=== PATIENT | female | born 1945 | race Caucasian/White ===

== ENCOUNTER → 2020-07-15 10:51 | Outpatient (BNVA) | payer MEDICARE, MEDICAID, SELFPAY | PROVIDERS: PCP Internal Medicine; Visit Provider Family Medicine Adult Medicine | DX: M79.7 Fibromyalgia (principal); M00.1 Pneumococcal arthritis and polyarthritis; M47.817 Spondylosis without myelopathy or radiculopathy, lumbosacral region | CPT/HCPCS: Q3014 ==

== ENCOUNTER → 2020-08-07 11:20 | Outpatient (BNVA) | payer MEDICARE, MEDICAID, SELFPAY | PROVIDERS: PCP Internal Medicine; Visit Provider Family Medicine Adult Medicine | DX: M79.7 Fibromyalgia (principal); M47.816 Spondylosis without myelopathy or radiculopathy, lumbar region; M00.1 Pneumococcal arthritis and polyarthritis | CPT/HCPCS: 99212 ==

== ENCOUNTER 2020-12-10 14:38 | Outpatient (REF) | payer MEDICARE, SELFPAY ==
[2020-12-10 16:33] LABS: MANUAL DIFF FLAG NO
[2020-12-10 16:37] LABS: Basophils Percent Auto 0.7 % (0-2); Eosinophils Absolute Auto 0.1 X10*3/uL (0.0-0.4); Eosinophils Percent Auto 1.8 % (0-4); Hematocrit 38.6 % (37-47); Hemoglobin 12.6 g/dl (12.0-16.0); Imm Gran Abs Auto 0.02 X10*3/uL (0.00-0.03); Imm Gran Pct Auto 0.4 % (0.0-0.4); Lymphocytes Absolute Auto 1.3 X10*3/uL (1.2-4.9); Lymphocytes Percent Auto 22.2 % (20-40); Mean Corpuscular HGB Conc 32.6 g/dl (31.0-35.0); Mean Corpuscular Hemoglobin 29.9 pg (27.0-33.0); Mean Corpuscular Volume 91.5 fL (80-98); Mean Platelet Volume 11.9 fL (9.4-12.3); Monocytes Absolute Auto 0.4 X10*3/uL (0.1-1.2); Monocytes Percent Auto 7.1 % (2-11); Neutrophils Absolute Auto 3.8 X10*3/uL (2.0-8.3); Neutrophils Percent Auto 67.8 % (45-73); Platelet Count 208 X10*3/uL (160-400); Red Blood Count 4.22 X10*6/uL (4.20-5.50); Red Cell Distribution Width 14.4 % (11.0-16.0); White Blood Count 5.6 X10*3/uL (4.8-10.8)
[2020-12-10 17:05] LABS: Alanine Aminotransferase 27 U/L (0-31); Albumin Level 4.5 g/dL (3.5-5.0); Alkaline Phosphatase 77 U/L (39-117); Anion Gap 13 (12-20); Aspartate Amino Transferase 26 U/L (5-31); Bilirubin Direct 0.3 mg/dL (0.0-0.5); Bilirubin Total 0.6 mg/dL (0.0-1.0); Blood Urea Nitrogen 18 mg/dL (9-16); Calcium 9.6 mg/dL (8.4-10.2); Carbon Dioxide 28 mmol/L (22-29); Chloride 104 mmol/L (96-108); Estimated Glomerular Filt Rate > 60; Glucose Random 78 mg/dL (60-115); Sodium 141 mmol/L (135-145); Total Protein 7.1 g/dL (6.5-8.0)
[2020-12-10 17:29] LABS: TSH reflex Free T4 0.48 uIU/mL (0.32-4.0)
[2020-12-10 17:30] LABS: Vitamin B12 592 pg/mL (200-900)
[2020-12-11 13:52] LABS: LDL Cholesterol Direct 100 mg/dL (<100)
[2020-12-14 13:51] LABS: Vitamin D 25-OH, D2 <4 ng/mL; Vitamin D 25-OH, D3 50 ng/mL; Vitamin D 25-OH, Total 50 ng/mL (30-100)
== END 2020-12-10 14:39 | disposition home or self-care (01) ==
LOC: HO.HMGCLDS 14:38
PROVIDERS: PCP Internal Medicine; Visit Provider Internal Medicine
DX: Z00.01 Encounter for general adult medical examination with abnormal findings (principal); F41.1 Generalized anxiety disorder; I10 Essential (primary) hypertension
CPT/HCPCS: 36415; 80053; 80076; 82248; 82306; 82607; 83721; 84443; 85025

== ENCOUNTER → 2020-12-11 13:03 | Outpatient (BNVA) | payer MEDICARE, SELFPAY | PROVIDERS: PCP Internal Medicine; Visit Provider Internal Medicine | DX: I49.8 Other specified cardiac arrhythmias (principal); I65.23 Occlusion and stenosis of bilateral carotid arteries; I10 Essential (primary) hypertension; R07.2 Precordial pain | CPT/HCPCS: 93005; 99202 ==

== ENCOUNTER → 2021-02-10 14:00 | Outpatient (REF) | payer MEDICARE, SELFPAY ==
--- NOTE | 2021-02-10 14:05 | CA_ITS ---
Transthoracic Echocardiogram Patient (Last, First, Middle): Millie Mendez A Gender: Female Date of : 1945 Age: 75 Procedure Date: 02/10/2021 Procedure Type: Transthoracic Echocardiogram Location: OP Height: 152.4 cm Weight: 49.9 kg BSA: 1.45 m2 Heart Rate: bpm BP: 130 / 68 mmHg Site Surveyor: ZOE/NEHA Referring MD: Jalen Steele MD Commercial Analyst: Thaddeus Lindsay MD Symptoms: I49.8 - Other specified cardiac arrhythmias Study Quality: Technically Difficult ECG Rhythm: Sinus Conclusions: - 1. Normal LV systolic function with impaired relaxation filling pattern 2. Mildly dilated left atrium 3. Normal cardiac valvular Doppler 4. Normal RV systolic pressure 5. No pericardial effusion Findings Left Ventricle Normal left ventricular size, thickness, and systolic function. The visually estimated ejection fraction is between 60-65%. Spectral Doppler is indicative of an impaired relaxation filling pattern. E/E prime ratio is between 8 and 15 consistent with indeterminate filling pressures. Right Ventricle Normal right ventricular cavity size and systolic function. Atria The left atrium is mildly dilated. There is no evidence of interatrial shunt. The right atrium is normal in size. Aortic Valve There is moderate calcification of the aortic valve. There is no aortic valve stenosis. There is no aortic valve regurgitation. Mitral Valve There is mild anterior and moderate posterior mitral leaflet thickening. There is mild mitral annular calcification. There is trace mitral valve regurgitation. There is no mitral valve stenosis. Pulmonic Valve The pulmonic valve was not well visualized. Tricuspid Valve Likely normal tricuspid valve structure and function. There is trace tricuspid valve regurgitation. The right ventricular systolic pressure is normal. The right ventricular systolic pressure is 20 mmHg. There is no evidence of pulmonary hypertension. Great Vessels All visible segments of the aorta are normal in size. The pulmonary artery was not well visualized. Venous The inferior vena cava is normal in size and collapses greater than 50% with inspiration. Pericardium/Pleural There is no evidence of pericardial effusion. Prior Study Comparison No significant change compared to prior study dated: 07/13/2016. Measurements M-Mode Liner Measurements Normals - Women/Men AOV Cusps: 1.30 1.5-2.6 cm/m2 2D Linear Measurements IVSd: 0.63 0.6-0.9/0.6-1.0 cm LVIDd: 3.91 3.9-5.3/4.2-5.9 cm LVIDd Index: 2.70 2.4-3.2/2.2-3.1 cm/m2 LVIDs: 2.66 2.0-3.6 cm LVPWd: 0.73 0.7-1.1 cm LA Diam: 3.80 2.7-3.8/3.0-4.0 cm LAIDs Index: 2.62 1.5-2.3 cm/m2 LV Mass: 90.31 67-162/88-224 g LV Mass Index: 62.28 43-95/49-115 g/m2 LVOT Diam: 1.90 3.0+(-)1.3 cm 2D Systolic Function EF 4C: 58.50 >55% EF 2C: 63.80 >55% EF BiP: 60.30 >55% Mitral Valve MV Pk E: 1.11 MV PK A: 1.08 MV Decel Time: 254.00 E/A: 1.00 E'Lateral: 9.14 E'Medial: 6.64 E/E' Med: 16.70 E/E' Lat: 12.10 PHT: 74.00 MVA PHT: 2.97 Decel Woodward: 4.38 Aortic Valve AoV Pk Deacon: 1.36 AoV Mn Deacon: 1.01 AoV VTI: 0.31 AoV Pk Grad: 7.00 Aov Mn Grad: 4.00 KEATON Cont.VTI: 2.50 LVOT LVOT Pk Deacon: 1.07 LVOT Mn Deacon: 0.81 LVOT VTI: 0.28 LVOT Pk Grad: 5.00 LVOT Mn Grad: 3.00 LVOT Diam: 1.90 LVOT Area: 2.84 Diastolic Function MV Pk E: 1.11 MV Pk A: 1.08 E/A: 1.00 E'Medial: 6.64 E/E' Med: 16.70 E' Laterial: 9.14 E/E' Lat: 12.10 Tricuspid Valve TR Pk Deacon: 2.08 TR Pk Grad: 17.00 RA Press: 3.00 RVSP: 20.00 Great Vessels Aorta Ao Arch: 1.90 Pulmonary Valve PV Pk Deacon: 0.80 Peak PV Grad: 3.00 Updated in Other Vendor System with Status of Final Thaddeus Angélica MD electronically signed on 02/10/2021 4:13:38 PM with status of Final
--- NOTE | 2021-02-10 14:30 | ECG_ITS ---
Hook-up date: 2021-02-10 14:11:00 Duration: 46:18:00 Test Indications: OTHER SPEC. CARDIAC ARRHYTHMIAS Medications: [id number] QRS complexes 4 Ventricular ectopics which represent <1 % of total QRS comp. 370 Supraventricular ectopics which represent <1 % of total QRS comp. * Paced QRS complexs which represent % of total QRS comp. VENTRICULAR ECTOPY 1 Isolated 0 Bigeminal Cycles 0 Couplets 1 Runs 3 Beats in Runs 3 Beats LONGEST at 174 BPM at 13:24:19 2021-02-11 3 Beats FASTEST at 174 BPM at 13:24:19 2021-02-11 SUPRAVENTRICULAR ECTOPY 311 Isolated 12 Couplets 8 Runs 35 Beats in Runs 8 Beats LONGEST at 134 BPM at 02:47:24 2021-02-12 3 Beats FASTEST at 159 BPM at 11:53:00 2021-02-11 HEART RATES 49 MIN at 21:00:43 2021-02-10 67 AVG 95 MAX at 14:59:24 2021-02-11 LONGEST RR 1.6560 secs at 19:13:46 2021-02-11 S-T LEVELS Channel 1 - 128 mm at 14:11:00 2021-02-10 - 128 mm at 14:11:00 2021-02-10 Channel 2 - 128 mm at 14:11:00 2021-02-10 - 128 mm at 14:11:00 2021-02-10 Channel 3 - 128 mm at 03:33:01 -- - 128 mm at 03:33:01 Basic rhythm Normal sinus rhythm No long pause or profound bradycardia One 3 beat sebas of NSVT at 174 bpm Occasional Premature atrial complexes No diary submitted Referred By: Jalen Steele Overread By: SWAPNIL MARIEE MD
== END ==
LOC: HO.CARD 14:00
PROVIDERS: PCP Internal Medicine; Visit Provider Internal Medicine
DX: I49.8 Other specified cardiac arrhythmias (principal)
CPT/HCPCS: 93225; 93226; 93306

== ENCOUNTER 2021-02-13 12:55 | Outpatient (REF) | payer MEDICARE, SELFPAY ==
--- NOTE | ~2021-02-13 | US_ITS ---
EXAMINATION: US DIAGNOSTIC ULTRASOUND BREAST, LEFT CLINICAL INFORMATION: Palpable abnormality 4 o'clock position left breast. COMPARISON: Mammography of same day and dating back to 05/21/2011. TECHNIQUE: Ultrasound of the breast is performed with real-time lugo scale imaging and color Doppler. FINDINGS: In the region of palpable abnormality there is a heavily calcified lesion with some shadowing and no internal vascularity corresponding to a stable dystrophic postsurgical calcification. No new suspicious mass or edematous change within the soft tissue planes identified. Results are discussed with the patient at time of visit. US/US breast LT limited IMPRESSION: Palpable abnormality corresponds to dystrophic calcification. ASSESSMENT: BI-RADS 2: Benign. RECOMMENDATION: Routine annual mammography screening due in 12 months. This patient's information was entered into a reminder system with a target due date for their next mammogram.
--- NOTE | ~2021-02-13 | MM_ITS ---
EXAMINATION: MM DIAGNOSTIC DIGITAL BREAST TOMOSYNTHESIS, BILATERAL TARGETED LEFT BREAST ULTRASOUND CLINICAL INFORMATION: Left breast lump for 3 weeks. Status post breast reduction surgery. The lifetime risk of breast cancer based on the Tyrer-Cuzick Model is 4.0%. COMPARISON: Mammography: 01/29/2015 and 05/21/2011. TECHNIQUE: Digital breast tomosynthesis is performed in both the craniocaudal and mediolateral oblique views along with computer-aided detection (CAD). Synthesized 2D images are generated from the tomosynthesis. Targeted left breast ultrasound. FINDINGS: The breasts are extremely dense, which lowers the sensitivity of mammography (ACR BI-RADS breast composition Category d). There are no new significant masses, abnormal calcifications, or other abnormalities. Postsurgical change with dystrophic calcifications are evident. There are also stable nodular densities seen bilaterally. No new abnormal dominant mass or new more suspicious grouping of calcifications identified. Targeted left breast ultrasound to region of palpable abnormality corresponds to a dystrophic calcification. Results are discussed with the patient at time of visit. MM/MM tomosynthesis diagnostic BI IMPRESSION: There are no significant changes from prior study. ASSESSMENT: BI-RADS 2: Benign. RECOMMENDATION: Routine annual mammography screening due in 12 months. This patient's information was entered into a reminder system with a target due date for their next mammogram.
== END 2021-02-13 12:56 | disposition home or self-care (01) ==
LOC: HO.MAMMO 12:55
PROVIDERS: PCP Internal Medicine; Visit Provider Internal Medicine
DX: N63.23 Unspecified lump in the left breast, lower outer quadrant (principal)
CPT/HCPCS: 76642; 77062; 77066

== ENCOUNTER 2021-02-18 12:43 | Outpatient (REF) | payer MEDICARE, SELFPAY ==
[2021-02-18 15:37] LABS: Alanine Aminotransferase 12 U/L (0-31); Albumin Level 4.3 g/dL (3.5-5.0); Alkaline Phosphatase 67 U/L (39-117); Aspartate Amino Transferase 21 U/L (5-31); Bilirubin Direct 0.2 mg/dL (0.0-0.5); Bilirubin Total 0.5 mg/dL (0.0-1.0); Total Protein 6.7 g/dL (6.5-8.0)
== END 2021-02-18 12:44 | disposition home or self-care (01) ==
LOC: HO.LAB 12:43
PROVIDERS: PCP Internal Medicine; Referring Provider Internal Medicine; Visit Provider Nurse Practitioner Family
DX: Z01.818 Encounter for other preprocedural examination (principal)
CPT/HCPCS: 36415; 80076; 99202

== ENCOUNTER → 2021-03-17 13:32 | Outpatient (BNVA) | payer MEDICARE, SELFPAY | PROVIDERS: PCP Internal Medicine; Referring Provider Internal Medicine; Visit Provider Internal Medicine | DX: I49.8 Other specified cardiac arrhythmias (principal); R07.2 Precordial pain; I65.23 Occlusion and stenosis of bilateral carotid arteries; I10 Essential (primary) hypertension; Z79.899 Other long term (current) drug therapy | CPT/HCPCS: 99212 ==

== ENCOUNTER 2021-11-27 16:37 | Emergency (ER) | payer MEDICARE, SELFPAY ==
--- NOTE | ~2021-11-27 | XR_ITS ---
EXAMINATION: XR CHEST CLINICAL INFORMATION: New atrial fibrillation. Rule out pulmonary edema. COMPARISON: CT of the chest 10/28/2017 TECHNIQUE: Frontal view of the chest was obtained. FINDINGS: Normal cardiomediastinal silhouette. Adequate expansion of the lungs. No focal consolidation. No pleural effusion or pneumothorax. No acute osseous abnormality. Multilevel degenerative changes of the thoracic spine and bilateral shoulders. XR/XR chest 1V IMPRESSION: No acute disease. No evidence for pulmonary edema.
[2021-11-27 16:44] VITALS: BP 151/75; PULSE 92; O2SAT 98; BMI 23.8
[2021-11-27 16:45] VITALS: BP 146/83; PULSE 100; RESP 19; TEMP 37.2; O2SAT 98
--- NOTE | 2021-11-27 16:50 | ECG_ITS ---
Test Reason : HEART PALPATATIONS Blood Pressure : / mmHG Vent. Rate : 098 BPM Atrial Rate : 000 BPM P-R Int : 000 ms QRS Dur : 070 ms QT Int : 338 ms P-R-T Axes : 000 018 006 degrees QTc Int : 431 ms Atrial fibrillation Nonspecific T wave abnormality Abnormal ECG No previous ECGs available Referred By: Chetna Buchanan Electronically Signed By:Deyvi Salazar
--- NOTE | 2021-11-27 16:53 | ED.ARRPALP ---
HPI - Arrhythmia/Palpitations General Chief Complaint: Chest Pain Stated Complaint: afib Time Seen by Provider: 11/27/21 16:42 Source: patient and EMS Mode of arrival: EMS Limitations: no limitations History of Present Illness HPI narrative: Patient comes to the emergency room via ambulance from her primary care physician's office. Patient states that she has been complaining of dizziness. Patient has history of chronic vertigo. Patient has also been complaining of palpitations. Patient states that the palpitations has been intermittently present for couple of years. However, over the last 2 weeks she has been having palpitations along with dizziness and chest pressure but no chest pain. Today while patient was in the office visit, he was noted that patient's heart rate was in the 130s, EKG was done, showed new onset atrial fibrillation. Patient states that she is not on any blood thinners, takes baby aspirin. Patient states that she takes amlodipine for blood pressure. Patient states that she has a previous prescription of metoprolol. Patient was taking 50 mg for a few weeks, she did not like how it made her feel, then she discontinued taking it altogether. For the last 3 days except today, patient has been taking 25 mg to help with the palpitations. EMS arrived, patient's heart rate was in the 170s. Patient was given 12.5 mg of IV Cardizem. On arrival, heart rate 95, patient states she feels better, denies dizziness, no chest pain or shortness of breath. Related Data Home Medications Medication Instructions Recorded Confirmed venlafaxine 75 mg capsule,extended 75 mg PO DAILY 12/11/20 11/27/21 release 24 hr biotin 2,500 mcg capsule 2,000 mcg PO DAILY cap 02/18/21 11/27/21 Previous Rx's Medication Instructions Recorded loratadine 10 mg tablet (Allergy 10 mg PO DAILY PRN 90 Days #90 tab 01/13/21 Relief (loratadine)) hydrochlorothiazide 25 mg tablet 25 mg PO QAM #90 tab 01/19/21 alprazolam 0.25 mg tablet 0.5 mg PO DAILY PRN 1 Days #2 tab 04/27/21 cholecalciferol (vitamin D3) 50 50 mcg PO DAILY #90 cap 05/08/21 mcg (2,000 unit) capsule aspirin 81 mg tablet,delayed 81 mg PO DAILY #90 tab 07/27/21 release cyanocobalamin (vitamin B-12) 1,000 mcg PO Q OTHER DAY #45 tab 07/27/21 1,000 mcg tablet multivitamin-ferrous 1 tab PO DAILY 90 Days #90 tab 07/27/21 fumarate-folic acid 18 mg-400 mcg tablet (Spectravite Advanced Formula) dicyclomine 20 mg tablet 20 mg PO BID PRN 90 Days #180 tab 09/16/21 albuterol sulfate 90 mcg/actuation 1 inh INHALATION QID PRN 30 Days 10/26/21 aerosol inhaler (ProAir HFA) #18 g amlodipine 5 mg tablet 5 mg PO DAILY #90 tab 10/26/21 apixaban 5 mg tablet (Eliquis) 5 mg PO BID #60 tab 11/27/21 diltiazem HCl 120 mg 120 mg PO DAILY #30 cap 11/27/21 capsule,extended release 24 hr (Cardizem CD) Allergies Allergy/AdvReac Type Severity Reaction Status Date / Time levofloxacin [Levaquin] Allergy Unknown unknown Verified 11/27/21 15:16 morphine Allergy Unknown Itching/Hives, Verified 03/17/21 13:47 swelling,rash Vicodin Allergy Unknown Hives/SOB, Verified 11/27/21 15:16 swelling, rash buprenorphine [From Butrans] AdvReac Severe severe Verified 11/27/21 15:16 itching Seasonal / Environmental Allergy Unknown Unknown Uncoded 11/27/21 15:16 Review of Systems Review of Systems: Constitutional : No Weight loss, No Fever, No Chills, No Night Sweats, No Fatigue, No Malaise ENT/Mouth : No Hearing loss, No Ear Pain, No Nasal Congestion, No Sinus Pain, No Hoarseness, No sore throat, No Rhinorrhea, No Swallowing Difficulty Eyes: No Eye Pain, No Swelling, No Redness, No Foreign Body, No Discharge, No Vision Changes Cardiovascular : Complaining intermittent chest pressure, known at this time, complaining of intermittent palpitations, lightheadedness Respiratory : No Cough, No Sputum, No Wheezing, No Smoke Exposure, No Dyspnea Gastrointestinal : No Nausea, No Vomiting, No Diarrhea, No Constipation, No abdominal Pain, No Hematochezia, No Melena Genitourinary : no irregular bleeding, No Dysuria, No Urinary Frequency, No Hematuria, No Urinary Incontinence, No Urgency, No Flank Pain, No Urinary Flow Changes, No Hesitancy Musculoskeletal : No joint pain, No Myalgias, No Joint Swelling Skin : No Skin Lesions, No rash Neuro : No Weakness, No Numbness, No Paresthesias, No Loss of Consciousness, intermittent dizziness/lightheadedness, No Headache Psych : No Anxiety/Panic, No Depression, No SI/HI/AH/VH, No Social Issues, Heme/Lymph: No Bruising, No Bleeding,No Lymphadenopathy Endocrine : No Polyuria, No Polydipsia, No Temperature Intolerance [facility] Past Medical History Medical History (Updated 11/27/21 @ 19:10 by Chetna Buchanan MD) Atrial fibrillation Chronic pain Fibromyalgia Lumbar and sacral arthritis Lumbar spondylosis Osteoarthritis Pain management Pneumococcal arthritis, right hip Pneumococcal arthritis, right hip PTSD (post-traumatic stress disorder) Surgical History H/O colonoscopy History of bilateral breast reduction surgery History of gastric bypass History of hysterectomy History of left knee replacement History of right knee surgery History of surgery Status post breast reduction Family History Family History Father Colon cancer Mother Lung cancer Son No problems noted. Son No problems noted. Son No problems noted. Daughter No problems noted. Social History Social History Housing: Apartment Alcohol intake: never Patient Tobacco Use Status: Current everyday Tobacco user Tobacco use type: Cigarette Cigarettes Per Day: 4 Smoked in Last 30 Days: Yes Use of substances other than those prescribed or required for medical reasons: No Advance Directives: No Advance Directives Information Provided: No Current occupational status: retired Cognitive needs: No Hearing needs: No Vision needs: No Physical Exam Vital Signs: Vital Signs: Last Vital Signs Temp 99 F 11/27/21 16:45 Pulse 99 11/27/21 18:46 Resp 16 11/27/21 18:46 BP 131/81 11/27/21 18:46 Pulse Ox 98 11/27/21 18:46 BMI result Body Mass Index 23.8 Const: Other: Appearance: Alert. Oriented X3. No acute distress. Eyes: Pupils equal, round and reactive to light. ENT: Pharynx normal. Neck: Normal inspection. Neck supple. No lymph nodes noted. No crepitus CVS: Irregularly irregular rhythm, rate controlled, less than 100, Pulses normal. Normal S1 and S2 Respiratory: No respiratory distress. Breath sounds normal. No Wheezing. No rales Abdomen: Soft and nontender. No rigidity. No distention. Skin: Skin warm and dry. Normal skin color. Normal skin turgor. Extremities: Trace pitting edema bilaterally, No Lacerations. No Rash Neuro: Oriented X 3. No motor deficit. No sensory deficit. Moving all extremities. No slurred speech. CN 2 through 12 grossly intact Psych: calm, cooperative, normal affect Course Course Course Narrative: CHADS2 Vasc score 5. I discussed with the patient that blood thinners are indicated to prevent stroke. Patient agrees to start taking blood thinners. I discussed the advantages and disadvantages of taking blood thinners. Patient's heart rate ranges between 100 and 110. Patient feeling much better, denies chest pain or shortness of breath. I discussed the patient with Dr. Salazar, patient will be started on Eliquis twice a day. Also, patient states that she does not do well with metoprolol, patient will be started on a low dose of Cardizem. Patient was given the 1st dose of Eliquis here in the emergency room and a brochure for 30 day free trial of Eliquis MDM - Arrhythmia/Palpitations Lab Data Result diagrams: 11/27/21 17:10 11/27/21 17:10 Labs: Lab Results 11/27/21 11/27/21 11/27/21 Range/Units 17:10 17:10 17:10 WBC 5.3 (4.8-10.8) X10*3/uL RBC 4.72 (4.20-5.50) X10*6/uL Hgb 13.8 (12.0-16.0) g/dl Hct 42.0 (37.0-47.0) % MCV 89.0 (80.0-98.0) fL MCH 29.2 (27.0-33.0) pg MCHC 32.9 (31.0-35.0) g/dl RDW 14.1 (11.0-16.0) % Plt Count 241 (160-400) X10*3/uL MPV 11.8 (9.4-12.3) fL Immature Gran % (Auto) 0.6 H (0.0-0.4) % Neut % (Auto) 58.2 (45-73) % Lymph % (Auto) 26.2 (20-40) % Blaine % (Auto) 9.4 (2-11) % Eos % (Auto) 4.7 H (0-4) % Baso % (Auto) 0.9 (0-2) % Lymph # (Auto) 1.4 (1.2-4.9) X10*3/uL Blaine # (Auto) 0.5 (0.1-1.2) X10*3/uL Eos # (Auto) 0.3 (0.0-0.4) X10*3/uL Baso # (Auto) 0.1 (0.0-0.2) X10*3/uL Abs Immat Gran (auto) 0.03 (0.00-0.03) X10*3/uL Absolute Neuts (auto) 3.1 (2.0-8.3) x10*3/uL Absolute Nucleated RBC 0.000 (0.0-0.012) X10*3/uL Nucleated RBC % (auto) 0.0 (0.0-0.2) /100WBC PT 13.3 H (9.9-13.0) SEC INR 1.2 H (0.9-1.1) Sodium 142 (135-145) mmol/L Potassium 4.7 (3.3-5.1) mmol/L Chloride 105 (96-108) mmol/L Carbon Dioxide 25 (22-29) mmol/L Anion Gap 17 (12-20) BUN 27 H (9-16) mg/dL Creatinine 0.80 (0.5-1.4) mg/dL Estim Creat Clear Calc 47.3 Estimated GFR > 60 Random Glucose 101 (60-115) mg/dL Calcium 9.6 (8.4-10.2) mg/dL Magnesium 1.9 (1.6-2.6) mg/dL Total Bilirubin 0.4 (0.0-1.0) mg/dL Direct Bilirubin 0.2 (0.0-0.5) mg/dL AST 22 (5-31) U/L ALT 14 (0-31) U/L Alkaline Phosphatase 77 (39-117) U/L Troponin I High Sens (<3.5-17.0) ng/L B-Natriuretic Peptide (<100) pg/mL Total Protein 6.7 (6.5-8.0) g/dL Albumin 4.2 (3.5-5.0) g/dL TSH (0.32-4.0) uIU/mL 11/27/21 11/27/21 Range/Units 17:10 17:10 WBC (4.8-10.8) X10*3/uL RBC (4.20-5.50) X10*6/uL Hgb (12.0-16.0) g/dl Hct (37.0-47.0) % MCV (80.0-98.0) fL MCH (27.0-33.0) pg MCHC (31.0-35.0) g/dl RDW (11.0-16.0) % Plt Count (160-400) X10*3/uL MPV (9.4-12.3) fL Immature Gran % (Auto) (0.0-0.4) % Neut % (Auto) (45-73) % Lymph % (Auto) (20-40) % Blaine % (Auto) (2-11) % Eos % (Auto) (0-4) % Baso % (Auto) (0-2) % Lymph # (Auto) (1.2-4.9) X10*3/uL Blaine # (Auto) (0.1-1.2) X10*3/uL Eos # (Auto) (0.0-0.4) X10*3/uL Baso # (Auto) (0.0-0.2) X10*3/uL Abs Immat Gran (auto) (0.00-0.03) X10*3/uL Absolute Neuts (auto) (2.0-8.3) x10*3/uL Absolute Nucleated RBC (0.0-0.012) X10*3/uL Nucleated RBC % (auto) (0.0-0.2) /100WBC PT (9.9-13.0) SEC INR (0.9-1.1) Sodium (135-145) mmol/L Potassium (3.3-5.1) mmol/L Chloride (96-108) mmol/L Carbon Dioxide (22-29) mmol/L Anion Gap (12-20) BUN (9-16) mg/dL Creatinine (0.5-1.4) mg/dL Estim Creat Clear Calc Estimated GFR Random Glucose (60-115) mg/dL Calcium (8.4-10.2) mg/dL Magnesium (1.6-2.6) mg/dL Total Bilirubin (0.0-1.0) mg/dL Direct Bilirubin (0.0-0.5) mg/dL AST (5-31) U/L ALT (0-31) U/L Alkaline Phosphatase (39-117) U/L Troponin I High Sens 7.8 (<3.5-17.0) ng/L B-Natriuretic Peptide 680 H (<100) pg/mL Total Protein (6.5-8.0) g/dL Albumin (3.5-5.0) g/dL TSH 1.00 (0.32-4.0) uIU/mL Imaging Data Chest x-ray: Radiologist's impression: Normal cardiomediastinal silhouette. Adequate expansion of the lungs. No focal consolidation. No pleural effusion or pneumothorax. No acute osseous abnormality. Multilevel degenerative changes of the thoracic spine and bilateral shoulders. XR/XR chest 1V IMPRESSION: No acute disease. No evidence for pulmonary edema ECG Data Attestation: I personally reviewed and interpreted this ECG as follows: (Atrial fibrillation, heart rate 98, no ST segment depression or elevation, nonspecific T-wave inversion in lead 3, QTC 431) Discharge Plan Discharge Clinical Impression: Atrial fibrillation, new onset Patient Disposition: Home, Self-Care Instructions: A-fib (Atrial Fibrillation) (ED) Additional Instructions: You are being started on blood thinners. If you have any head injuries, you need to return immediately to the emergency room for evaluation. Please follow-up with your primary care physician tomorrow. If you have any worsening or new symptoms, please return to the emergency room or call 911 Prescriptions: New Eliquis 5 mg tablet 5 mg PO BID Qty: 60 0RF diltiazem HCl [Cardizem CD] 120 mg capsule,extended release 24hr 120 mg PO DAILY Qty: 30 0RF No Action loratadine [Allergy Relief (loratadine)] 10 mg tablet 10 mg PO DAILY PRN (Reason: allergy symptoms) 90 Days Qty: 90 3RF hydrochlorothiazide 25 mg tablet 25 mg PO QAM Qty: 90 0RF alprazolam 0.25 mg tablet 0.5 mg PO DAILY PRN (Reason: anxiety) 1 Days Qty: 2 0RF cholecalciferol (vitamin D3) 50 mcg (2,000 unit) capsule 50 mcg PO DAILY Qty: 90 3RF aspirin 81 mg tablet,delayed release (DR/EC) 81 mg PO DAILY Qty: 90 3RF cyanocobalamin (vitamin B-12) 1,000 mcg tablet 1,000 mcg PO Q OTHER DAY Qty: 45 1RF Spectravite Advanced Formula 18-400 mg-mcg tablet 1 tab PO DAILY 90 Days Qty: 90 3RF dicyclomine 20 mg tablet 20 mg PO BID PRN (Reason: IBS) 90 Days Qty: 180 3RF amlodipine 5 mg tablet 5 mg PO DAILY Qty: 90 0RF albuterol sulfate [ProAir HFA] 90 mcg/actuation HFA aerosol inhaler 1 inh inhalation QID PRN (Reason: shortness of breath or wheezing) 30 Days Qty: 18 0RF venlafaxine 75 mg capsule,extended release 24hr 75 mg PO DAILY 0RF biotin 2,500 mcg capsule 2,000 mcg PO DAILY 0RF
[2021-11-27 17:20] LABS: MANUAL DIFF FLAG NO
[2021-11-27 17:29] LABS: Basophils Absolute Auto 0.1 X10*3/uL (0.0-0.2); Basophils Percent Auto 0.9 % (0-2); Eosinophils Absolute Auto 0.3 X10*3/uL (0.0-0.4); Eosinophils Percent Auto 4.7 % (0-4); Hemoglobin 13.8 g/dl (12.0-16.0); Imm Gran Abs Auto 0.03 X10*3/uL (0.00-0.03); Imm Gran Pct Auto 0.6 % (0.0-0.4); Lymphocytes Absolute Auto 1.4 X10*3/uL (1.2-4.9); Lymphocytes Percent Auto 26.2 % (20-40); Mean Corpuscular HGB Conc 32.9 g/dl (31.0-35.0); Mean Corpuscular Hemoglobin 29.2 pg (27.0-33.0); Mean Platelet Volume 11.8 fL (9.4-12.3); Monocytes Absolute Auto 0.5 X10*3/uL (0.1-1.2); Monocytes Percent Auto 9.4 % (2-11); Neutrophils Absolute Auto 3.1 x10*3/uL (2.0-8.3); Neutrophils Percent Auto 58.2 % (45-73); Platelet Count 241 X10*3/uL (160-400); Red Blood Count 4.72 X10*6/uL (4.20-5.50); Red Cell Distribution Width 14.1 % (11.0-16.0); White Blood Count 5.3 X10*3/uL (4.8-10.8)
[2021-11-27 17:30] LABS: INTERNATIONAL NORM RATIO 1.2 (0.9-1.1); Prothrombin Time 13.3 SEC (9.9-13.0)
[2021-11-27 17:40] LABS: Alanine Aminotransferase 14 U/L (0-31); Albumin Level 4.2 g/dL (3.5-5.0); Alkaline Phosphatase 77 U/L (39-117); Anion Gap 17 (12-20); Aspartate Amino Transferase 22 U/L (5-31); Bilirubin Direct 0.2 mg/dL (0.0-0.5); Bilirubin Total 0.4 mg/dL (0.0-1.0); Blood Urea Nitrogen 27 mg/dL (9-16); Calcium 9.6 mg/dL (8.4-10.2); Carbon Dioxide 25 mmol/L (22-29); Chloride 105 mmol/L (96-108); Creatinine Clr Calc Pharmacy 47.3; Estimated Glomerular Filt Rate > 60; Glucose Random 101 mg/dL (60-115); Magnesium 1.9 mg/dL (1.6-2.6); Potassium 4.7 mmol/L (3.3-5.1); Sodium 142 mmol/L (135-145); Total Protein 6.7 g/dL (6.5-8.0)
[2021-11-27 17:43] LABS: B Type Natriuretic Peptide 680 pg/mL (<100); Troponin-I High Sensitivity 7.8 ng/L (<3.5-17.0)
[2021-11-27 18:46] VITALS: BP 131/81; PULSE 99; RESP 16; O2SAT 98
[2021-11-27 19:30] VITALS: BP 143/89; PULSE 97; RESP 14; O2SAT 97
[2021-11-27] MEDS: Apixaban 5 MG TABLET PO (19:30)
== END 2021-11-27 19:34 | disposition home or self-care (01) ==
PROVIDERS: Emergency Provider Emergency Medicine; PCP Internal Medicine
DX: R07.89 Other chest pain (principal); I48.91 Unspecified atrial fibrillation; R06.02 Shortness of breath; F17.210 Nicotine dependence, cigarettes, uncomplicated; Z71.6 Tobacco abuse counseling; Z79.01 Long term (current) use of anticoagulants; Z79.899 Other long term (current) drug therapy
CPT/HCPCS: 36415; 71045; 80048; 80076; 83735; 83880; 84443; 84484; 85025; 85610; 93005; 99283; 99285

== ENCOUNTER → 2022-01-06 14:47 | Outpatient (BNVA) | payer MEDICARE, SELFPAY | PROVIDERS: PCP Internal Medicine; Referring Provider Internal Medicine; Visit Provider Internal Medicine | DX: I48.0 Paroxysmal atrial fibrillation (principal); I49.8 Other specified cardiac arrhythmias; I65.23 Occlusion and stenosis of bilateral carotid arteries; I10 Essential (primary) hypertension | CPT/HCPCS: 93005; 99212 ==

== ENCOUNTER → 2022-01-15 14:31 | Outpatient (REF) | payer MEDICARE, SELFPAY ==
--- NOTE | 2022-01-15 14:34 | HM_ITS ---
Conclusion: 1. Patient was monitored for total period of 13 days 2. Baseline was normal sinus rhythm 75% of the time at which time the heart rate averages 70 beats per minute 3. 25% time patient has intermittent episodes of atrial fibrillation, paroxysmal with rapid ventricular response 4. About 131 pauses noted, some of these pauses are post conversion from atrial fibrillation even when it is a short episode with the longest pause of 8.7 seconds happening at 04:43 5. Total of 1006 and 45 PACs accounting for 0.12% accounting for occasional PACs 6. No patient reported events 7. Overall of normal Holter report consistent with tachy-trini syndrome suggestive of sick sinus syndrome 8. Patient has been requested for an urgent office visit [facility]
== END ==
LOC: HO.CARD 14:31
PROVIDERS: PCP Internal Medicine; Visit Provider Internal Medicine
DX: R00.2 Palpitations (principal); I48.0 Paroxysmal atrial fibrillation
CPT/HCPCS: 93246

== ENCOUNTER → 2022-02-04 13:06 | Outpatient (BNVA) | payer MEDICARE, SELFPAY | PROVIDERS: PCP Internal Medicine; Referring Provider Internal Medicine; Visit Provider Internal Medicine Cardiovascular Disease | DX: I49.5 Sick sinus syndrome (principal); I48.0 Paroxysmal atrial fibrillation; Z79.01 Long term (current) use of anticoagulants; Z79.899 Other long term (current) drug therapy | CPT/HCPCS: 99212 ==

== ENCOUNTER 2022-02-05 13:02 | Day surgery (SDC) | payer MEDICARE, SELFPAY ==
--- NOTE | 2022-02-04 14:06 | HO.ANESPROP2 ---
Documented by User: Shilpa Hsieh NP 02/04/22 14:15 HPI - Anesthesia Eval Consult details Narrative: 76yo F for Pacemaker Insertion, Dual Eliquis for afib PMFSH Active Problems Active Problems: All Active Problems (Updated 02/04/22 @ 13:52 by Thaddeus Lindsay MD) Sick sinus syndrome (Acute) PAF (paroxysmal atrial fibrillation) (Acute ~11/2021) Junctional rhythm (Acute) Hypertension, essential (Acute) Bilateral carotid artery stenosis (Acute) Dizziness (Acute) Swelling of toe of both feet (Acute) Personal history of nicotine dependence (Acute) Environmental allergies (Acute) Irritable bowel syndrome (Acute) Osteoporosis (Acute ~2010) Anxiety, generalized (Acute) B12 deficiency (Acute) Vitamin D deficiency (Acute) Breast lump on left side at 3 o'clock position (Acute) Past Medical History Medical History Fibromyalgia Lumbar spondylosis Osteoarthritis Pain management PTSD (post-traumatic stress disorder) Family History Family History Father Colon cancer Mother Lung cancer Son No problems noted. Son No problems noted. Son No problems noted. Daughter No problems noted. Surgical History Surgical History H/O colonoscopy History of bilateral breast reduction surgery History of gastric bypass History of hysterectomy History of left knee replacement History of right knee surgery History of surgery Status post breast reduction Social History Social History Housing: Apartment Alcohol intake: never Patient Tobacco Use Status: Current everyday Tobacco user Tobacco use type: Cigarette Cigarettes Per Day: 3 Smoked in Last 30 Days: Yes e-Cigarette/Vaping Use: Never Used Patient Interested in Nicotine Replacement: Yes Patient Given Instructions on How to Stop Smoking: Yes Date Education Initiated: 02/05/22 Second Hand Smoke Exposure: Yes Use of substances other than those prescribed or required for medical reasons: No Are you DNR?: No Advance Directives: No Advance Directives Information Provided: Yes Current occupational status: retired Cognitive needs: No Hearing needs: No Vision needs: Yes Meds Allergies Allergy/AdvReac Type Severity Reaction Status Date / Time levofloxacin [Levaquin] Allergy Unknown unknown Verified 01/27/22 13:43 morphine Allergy Unknown Itching/Hives, Verified 01/27/22 13:43 swelling,rash Vicodin Allergy Unknown Hives/SOB, Verified 01/27/22 13:43 swelling, rash buprenorphine [From Butrans] AdvReac Severe severe Verified 01/27/22 13:43 itching Seasonal / Environmental Allergy Unknown Unknown Uncoded 01/27/22 13:43 Home Medications Medication Instructions Recorded Confirmed Last Taken Type venlafaxine 75 mg capsule,extended 75 mg PO DAILY 12/11/20 02/05/22 02/04/22 History release 24 hr biotin 2,500 mcg capsule 2,000 mcg PO DAILY 02/18/21 02/05/22 02/04/22 History Exam Exam Date and Time: February 04, 2022 1406 Pertinent Lab Results Pertinent Lab Results: Laboratory Tests 11/27/21 11/27/21 17:10 17:10 WBC 5.3 Hgb 13.8 Hct 42.0 Plt Count 241 Sodium 142 Potassium 4.7 Chloride 105 Carbon Dioxide 25 BUN 27 H Creatinine 0.80 EKG 12/2021 sinus bradycardia at 48/Min; some junctional beats; nonspecific ST-T changes ECHO 2020 Conclusions: - 1. Normal LV systolic function with impaired relaxation filling pattern? 2. Mildly dilated left atrium? 3. Normal cardiac valvular Doppler ? 4. Normal RV systolic pressure ? 5. No pericardial effusion ?? Narrative Narrative: Holter 14 day Conclusion: 1. Patient was monitored for total period of 13 days 2. Baseline was normal sinus rhythm 75% of the time at which time the heart rate averages 70 beats per minute 3. 25% time patient has intermittent episodes of atrial fibrillation, paroxysmal with rapid ventricular response 4.? About 131 pauses noted, some of these pauses are post conversion from atrial fibrillation even when it is a short episode with the longest pause of 8.7 seconds happening at 04:43 5. Total of 1006 and 45 PACs accounting for 0.12% accounting for occasional PACs 6. No patient reported events 7. Overall of normal Holter report consistent with tachy-trini syndrome suggestive of sick sinus syndrome 8. Patient has been requested for an urgent office visit Assessment and Plan Assessment Anesthesia Assessment: Chart Reviewed Documented by User: Emily Hurtado MD 02/05/22 14:52 REPLACED BY [facility] Past Medical History Medical History Fibromyalgia Lumbar spondylosis Osteoarthritis Pain management PTSD (post-traumatic stress disorder) Family History Family History Father Colon cancer Mother Lung cancer Son No problems noted. Son No problems noted. Son No problems noted. Daughter No problems noted. Family history of problems with anesthesia: No Surgical History Surgical History H/O colonoscopy History of bilateral breast reduction surgery History of gastric bypass History of hysterectomy History of left knee replacement History of right knee surgery History of surgery Status post breast reduction History of Problems with Anesthesia: No Social History Social History Housing: Apartment Alcohol intake: never Patient Tobacco Use Status: Current everyday Tobacco user Tobacco use type: Cigarette Cigarettes Per Day: 3 Smoked in Last 30 Days: Yes e-Cigarette/Vaping Use: Never Used Patient Interested in Nicotine Replacement: Yes Patient Given Instructions on How to Stop Smoking: Yes Date Education Initiated: 02/05/22 Second Hand Smoke Exposure: Yes Use of substances other than those prescribed or required for medical reasons: No Are you DNR?: No Advance Directives: No Advance Directives Information Provided: Yes Current occupational status: retired Cognitive needs: No Hearing needs: No Vision needs: Yes Meds Allergies Allergy/AdvReac Type Severity Reaction Status Date / Time levofloxacin [Levaquin] Allergy Unknown unknown Verified 01/27/22 13:43 morphine Allergy Unknown Itching/Hives, Verified 01/27/22 13:43 swelling,rash Vicodin Allergy Unknown Hives/SOB, Verified 01/27/22 13:43 swelling, rash buprenorphine [From Butrans] AdvReac Severe severe Verified 01/27/22 13:43 itching Seasonal / Environmental Allergy Unknown Unknown Uncoded 01/27/22 13:43 Home Medications Medication Instructions Recorded Confirmed Last Taken Type venlafaxine 75 mg capsule,extended 75 mg PO DAILY 12/11/20 02/05/22 02/04/22 History release 24 hr biotin 2,500 mcg capsule 2,000 mcg PO DAILY 02/18/21 02/05/22 02/04/22 History Exam Airway Mallampati Class: III TM Dist: >3cm Neck ROM: Full Assessment and Plan Assessment Anesthesia Assessment: Anesthesia Plan Discussed Final Anesthetic Review Family History of Problems with Anesthesia: No History of Problems with Anesthesia: No NPO: Yes ASA Class: III Final Preanesthetic Review: No Changes in Pt Med Stat, Meds/Allgs Chart Reviewed, Consent Obtained/Reviewed and Anes Risks/Benef Reviewed Patient Risk: Intermediate Procedure Risk: Intermediate Anesthetic Plan Anesthetic Plan: GA Disposition: Standard PACU
[2022-02-05] VITALS (7 sets, daily range): BP systolic 72–154; BP diastolic 48–75; PULSE 41–130; RESP 16–18; TEMP 36.1–36.8; O2SAT 98–99; BMI 23.4; BMI 24.3
--- NOTE | ~2022-02-05 | XR_ITS ---
EXAMINATION: XR CHEST CLINICAL INFORMATION: Pacemaker. COMPARISON: Chest x-ray 11/27/2021 TECHNIQUE: Frontal portable view of the chest was obtained. 7:51 PM FINDINGS: Status post placement of pacemaker. Leads in the right atrium and right ventricle. There is no pneumothorax. Cardiac mediastinal contours are unchanged. There is mild to moderate central pulmonary vascular prominence with increased lung markings consistent with interstitial edema. No overt pulmonary edema. No pleural effusion. No focal consolidation. Surgical clips in the upper abdomen. XR/XR chest 1V IMPRESSION: Placement of pacemaker. No pneumothorax. Increased pulmonary vascularity.
--- NOTE | ~2022-02-05 | FL_ITS ---
EXAMINATION: XR FLUOROSCOPY WITH IMAGES CLINICAL INFORMATION: Pacemaker COMPARISON: Chest radiograph 02/05/2022 TECHNIQUE: Fluoroscopy performed by Dr. Jaja Parkinson. Fluoroscopy time: 11.9 minutes Cumulative dose: 130 mGy Images: 1 FINDINGS: Fluoroscopic spot view shows bipolar pacemaker with leads in expected position. Heart size normal. FL/FL guidance in OR IMPRESSION: Fluoroscopy for pacemaker placement.
[2022-02-05 13:39] LABS: COVID-19 Test Negative (Negative); IDNOW Serial# 16C4AD1C
[2022-02-05] MEDS: Lactated Ringers 1,000 ML 100 ML IVCONT (13:50)
--- NOTE | 2022-02-05 19:31 | W.PM.OPN ---
Operative Note Operative Note Date of Service: 02/05/22 Narrative: Preoperative diagnosis: Sick sinus syndrome Postoperative diagnosis: Same Operation: Placement of dual-chamber permanent pacemaker with fluoroscopic guidance, venogram Surgeon: Jaja Parkinson MD Specimens: None EBL: 5 cc Operative findings: The pacemaker placed was a [employer] serial number [id number]. The atrial lead was a [employer] serial number [id number]. The ventricular lead was a [employer] serial number [id number]. Parameters in the right atrial lead sensing was 0.7 atrial fib/flutter with impedance of 400. In the ventricular lead threshold was 0.75 volts at 0.5 milliseconds with an impedance of 610 Ohms And an R-wave of 5.1. Patient tolerated procedure well. Mid case she did go into atrial fibrillation with a rate in the 120s to 130s with a normal blood pressure. Operation in detail: The patient was brought to the operating room, placed supine on the operating room table, anesthesia moderate of ices were placed, and the patient was gently sedated. A time-out was performed confirming the correct patient site and procedure. After injection of local anesthetic, a 3 cm incision was made in the left infraclavicular region and carried down to the pectoralis fascia with electrocautery. The patient was then placed in Trendelenburg and an 18 gauge needle was used to access subclavian vein. I was able to get a flash several times however I could not thread the wire passed what presumably would be a stenosis in the vein of some kind. After several attempts and a venogram attempt after about 1 hour of trying we decided to switch to the other side. The patient was undraped and re-prepped exposing the right infraclavicular region. Again, after injection of local anesthetic, a 3 cm incision was made in the right infraclavicular region carried down to the pectoralis fascia with electrocautery. Patient was then again placed in Trendelenburg an 18 gauge needle was used to access the subclavian vein. My 1st attempt gained the subclavian artery and the needle was removed and pressure was held. My 2nd stick slightly inferior to that got directly into the subclavian vein.And a wire was placed into the right atrium under fluoroscopic guidance. A 2nd 18 gauge needle was then used to access the subclavian vein again on the 1st stick and a wire was placed under fluoroscopic guidance and parked in the right atrium. The patient was then taken out of Trendelenburg and a pocket was formed using blunt and electrocautery dissection. The 1st 6 Pakistani sheath was then placed over wire and the wire and dilator were removed. The ventricular lead was then placed through the sheath and parked in the right atrium and the peel-away sheath was removed. After several attempts using a curved stylet we were eventually able to access the right ventricle and the tip of the lead was positioned at the right ventricular apex. The endocardial screw was deployed and the lead was tested with excellent parameters above. This lead was then secured with silk sutures to the pectoralis fascia. The 2nd 6 Pakistani sheath was then placed over the 2nd wire and a wire dilator removed. The atrial lead was then placed and parked in the right atrium. AJ stylet was used to position this in the right atrial appendage. I did have to attempt to this several times in order to get the lead to the stay within the right atrial appendage but ultimately we did achieve a good location in good contact.The endocardial screws deployed and the lead was tested with excellent parameters above. This lead was also secured with silk sutures to the pectoralis fascia. The pocket was then copiously irrigated with antibiotic solution. The leads were then placed in their appropriate receptacles and the pacemaker was tested again with excellent parameters. The generator and excess lead was then placed into the pocket. The wound was then closed with a deep running 3-0 Vicryl suture followed by running 3-0 Vicryl suture and Dermabond glue in the skin. The patient was then brought back to the PACU in stable condition.
[2022-02-05] MEDS: ondansetron HCL 4 MG/2 ML VIAL IVPUSH (19:50)
[2022-02-05 20:29] LABS: Basophils Absolute Auto 0.1 X10*3/uL (0.0-0.2); Basophils Percent Auto 0.8 % (0-2); Eosinophils Absolute Auto 0.2 X10*3/uL (0.0-0.4); Eosinophils Percent Auto 3.5 % (0-4); Hematocrit 37.4 % (37.0-47.0); Hemoglobin 11.9 g/dl (12.0-16.0); Imm Gran Abs Auto 0.02 X10*3/uL (0.00-0.03); Imm Gran Pct Auto 0.3 % (0.0-0.4); Lymphocytes Percent Auto 17.2 % (20-40); MANUAL DIFF FLAG NO; Mean Corpuscular HGB Conc 31.8 g/dl (31.0-35.0); Mean Corpuscular Hemoglobin 28.7 pg (27.0-33.0); Mean Corpuscular Volume 90.3 fL (80.0-98.0); Monocytes Absolute Auto 0.5 X10*3/uL (0.1-1.2); Monocytes Percent Auto 8.1 % (2-11); Neutrophils Absolute Auto 4.2 x10*3/uL (2.0-8.3); Neutrophils Percent Auto 70.1 % (45-73); Platelet Count 188 X10*3/uL (160-400); Red Blood Count 4.14 X10*6/uL (4.20-5.50); Red Cell Distribution Width 13.6 % (11.0-16.0); White Blood Count 5.9 X10*3/uL (4.8-10.8)
[2022-02-05] MEDS: Metoprolol Tartrate 5 MG/5 ML VIAL 2.5 MG IVPUSH (20:29)
[2022-02-05 20:50] LABS: Anion Gap 11 (12-20); Blood Urea Nitrogen 26 mg/dL (9-16); Calcium 8.2 mg/dL (8.4-10.2); Carbon Dioxide 23 mmol/L (22-29); Chloride 110 mmol/L (96-108); Creatinine Clr Calc Pharmacy 50.6; Estimated Glomerular Filt Rate > 60; Glucose Random 90 mg/dL (60-115); Sodium 140 mmol/L (135-145)
[2022-02-05] MEDS: dilTIAZem HCL 125 MG in 0.9 % Sodium Chloride 100 ML IVCONT (20:53)
[2022-02-05 21:07] LABS: B Type Natriuretic Peptide 517 pg/mL (<100)
[2022-02-05] MEDS: oxyCODONE HCl Immed Release 5 MG TABLET PO (21:14)
--- NOTE | 2022-02-05 21:24 | HO.PM.IMCN ---
History of Present Illness Data of Consult Service Date: 02/05/22 Primary Care Provider: Leatha Al MD [facility] Reason for consult: AFib with RVR 76-year-old female with past medical history of sick sinus syndrome, paroxysmal AFib, HTN, bilateral carotid artery stenosis, history of dizziness, IBS, anxiety, who presented to the OR as an outpatient under the care of Dr. Parkinson for anchor placement for management of sick sinus syndrome. According to Dr. Moore patient developed AFib with RVR while in the OR, she had a slightly complicated procedure but placement of pacemaker was eventually successful. I evaluated patient at bedside, she appears slightly uncomfortable but otherwise alert, oriented, denies any chest pain, reports the palpitations are very common and chronic for her, denies any dizziness, feels nauseous, no vomiting, no abdominal pain, no diarrhea constipation, no urinary symptoms and lower extremity edema. Patient's vitals on my exam showed a heart rate fluctuating between 120 to 140s. Apparently patient had a drop in her blood pressure to the 80s over 40s, patient received 100 mg of phenylephrine by anesthesiologist with improvement in her blood pressure. Patient received 2.5 of IV metoprolol with no improvement in her heart rate, patient started on Cardizem drip and admitted to the telemetry unit. Labs were also ordered which showed a WBC count of 5.9, hemoglobin of 11.9, chloride of 110, BUN of 26, troponin of 55 and increased to 132, and BNP of 517, Chest x-ray showed placement of pacemaker, no pneumothorax, and increased pulmonary vascularity. Patient will be admitted for further management Review of Systems Review of Systems: Yes all other systems are reviewed and are negative [facility] Medical History Fibromyalgia Lumbar spondylosis Osteoarthritis Pain management PTSD (post-traumatic stress disorder) Family History Father Colon cancer Mother Lung cancer Son No problems noted. Son No problems noted. Son No problems noted. Daughter No problems noted. Surgical History H/O colonoscopy History of bilateral breast reduction surgery History of gastric bypass History of hysterectomy History of left knee replacement History of right knee surgery History of surgery Status post breast reduction Social History Household Members: None Housing: Apartment Do you presently have visiting nurse or other home services: No Alcohol intake: never Patient Tobacco Use Status: Never used Tobacco Tobacco use type: Cigarette Cigarettes Per Day: 3 Smoked in Last 30 Days: Yes e-Cigarette/Vaping Use: Never Used Patient Interested in Nicotine Replacement: Yes Patient Given Instructions on How to Stop Smoking: Yes Date Education Initiated: 02/05/22 Second Hand Smoke Exposure: Yes Use of substances other than those prescribed or required for medical reasons: No Currently Displaying Signs/Symptoms of Drug Intoxication Withdrawal: No Any prior treatment program specific to substance use: No Have you been hit, kicked, punched, or otherwise hurt by someone within the past year? If so, by whom?: No Do you feel safe in your current relationship?: No Current Relationship Is there a partner from a previous relationship who is making you feel unsafe now?: No Are you DNR?: No Advance Directives: No Advance Directives Information Provided: Yes Do you have thoughts of harming others: None Do you have a plan to hurt others: No Plan Recently lost weight without trying: No Nutrition Risks: No Nutritional Risk Patient : No : No Poor oral hygiene: No Current occupational status: retired Cognitive needs: No Hearing needs: No Vision needs: Yes Meds Allergies Allergy/AdvReac Type Severity Reaction Status Date / Time levofloxacin [Levaquin] Allergy Unknown unknown Verified 01/27/22 13:43 morphine Allergy Unknown Itching/Hives, Verified 01/27/22 13:43 swelling,rash Vicodin Allergy Unknown Hives/SOB, Verified 01/27/22 13:43 swelling, rash buprenorphine [From Butrans] AdvReac Severe severe Verified 01/27/22 13:43 itching Seasonal / Environmental Allergy Unknown Unknown Uncoded 01/27/22 13:43 Active Medications: Current Medications Acetaminophen (Acetaminophen 325 Mg Tablet) 650 mg PO ONCE PRN PRN Reason: Pain, Mild (Pain Scale 1-3) Fentanyl (Fentanyl Citrate/Pf 100 Mcg/2 Ml Vial) 25 mcg IVPUSH Q5M PRN; Protocol PRN Reason: Pain, Moderate (Pain Scale 4-6 Lactated Ringer's (Lr) 1,000 mls @ 100 mls/hr IVCONT .Q10H [facility] Last Infusion: 02/05/22 21:12 Dose: 0 mls/hr Promethazine HCl 12.5 mg/ (Sodium Chloride) 50.5 mls @ 202 mls/hr IV ONCE PRN PRN Reason: Nausea and Vomiting Diltiazem HCl 125 mg/ Sodium (Chloride) 125 mls @ 0 mls/hr IVCONT .Q0M SANDRITA; Protocol Last Titration: 02/05/22 21:20 Dose: 10 mg/hr, 10 mls/hr Home Medications Medication Instructions Recorded Confirmed Last Taken Type venlafaxine 75 mg capsule,extended 75 mg PO DAILY 12/11/20 02/05/22 02/04/22 History release 24 hr biotin 2,500 mcg capsule 2,000 mcg PO DAILY 02/18/21 02/05/22 02/04/22 History Physical Exam Vital Signs and Narrative: Vital Signs: Last Vital Signs Temp 97.9 F 02/05/22 20:25 Pulse 124 H 02/05/22 20:25 Resp 16 02/05/22 20:25 BP 96/69 02/05/22 20:25 Pulse Ox 99 02/05/22 20:25 O2 Del Method 02/05/22 20:25 O2 Flow Rate 2 02/05/22 20:25 BMI result Body Mass Index 23.4 Const: General: cooperative and no acute distress Orientation/consciousness: patient oriented x3 Eyes: General: appearance normal, both eyes and all related structures Resp: Effort & Inspection: normal respiratory effort Auscultation: clear to auscultation bilaterally Cardio: Other: Irregular rhythm, Tachycardia, GI: Palpation (GI): Soft to palpation Auscultation: normal bowel sounds Skin: General skin exam: no rashes or lesions noted Neuro: General: patient oriented x3 Cognition (Neuro): normal cognition Extrem: General: Yes normal to inspection and Yes no pedal edema Results Labs CBC and Chem 7: 02/05/22 20:16 02/05/22 20:16 Labs: Laboratory Results - last 24 hr 02/05/22 02/05/22 02/05/22 13:20 20:16 20:16 MCV 90.3 MCH 28.7 MCHC 31.8 RDW 13.6 Plt Count 188 MPV 12.0 Immature Gran % (Auto) 0.3 Neut % (Auto) 70.1 Lymph % (Auto) 17.[address] [place] % (Auto) 8.1 Eos % (Auto) 3.5 Baso % (Auto) 0.8 Lymph # (Auto) 1.[address] [place] # (Auto) 0.5 Eos # (Auto) 0.2 Baso # (Auto) 0.1 Abs Immat Gran (auto) 0.02 Absolute Neuts (auto) 4.2 Absolute Nucleated RBC 0.000 Nucleated RBC % (auto) 0.0 Anion Gap 11 L Estim Creat Clear Calc 50.6 Estimated GFR > 60 Random Glucose 90 Calcium 8.2 L D Troponin I High Sens B-Natriuretic Peptide COVID-19 (DAVE) Negative COVID-19 Clin Com See Note 02/05/22 20:16 MCV MCH MCHC RDW Plt Count MPV Immature Gran % (Auto) Neut % (Auto) Lymph % (Auto) [place] % (Auto) Eos % (Auto) Baso % (Auto) Lymph # (Auto) [place] # (Auto) Eos # (Auto) Baso # (Auto) Abs Immat Gran (auto) Absolute Neuts (auto) Absolute Nucleated RBC Nucleated RBC % (auto) Anion Gap Estim Creat Clear Calc Estimated GFR Random Glucose Calcium Troponin I High Sens 55.0 H* D B-Natriuretic Peptide 517 H COVID-19 (DAVE) COVID-19 Clin Com Imaging Radiologist's Impressions: Impressions Chest X-Ray 02/05/22 20:00 IMPRESSION: Placement of pacemaker. No pneumothorax. Increased pulmonary vascularity. Assessment and Plan (1) Atrial fibrillation with RVR: Status: Acute (2) Elevated troponin: Status: Acute (3) Status post cardiac pacemaker procedure: Status: Acute (4) CHF (congestive heart failure): Status: Acute Plan 76-year-old female paroxysmal AFib, as well as sinus syndrome, came into the hospital as outpatient procedure for pacemaker placement, developed AFib with RVR while in the OR the persisted even post procedure, patient is being admitted under Dr. Feng with a consult to our service. # AFib with RVR - likely driven by procedure - treated with Cardizem drip but converted to sinus rhythm a few hours later, will titrate Cardizem off, and resume her home Cardizem - patient also has elevated BNP as well as troponin, therefore will consult Cardiology for further evaluation - will obtain echocardiogram - continue Eliquis # elevated troponin - likely type 2 in the setting of AFib with RVR - no EKG changes suggestive of ACS - patient denies any chest pain - will trend, consult Cardiology # acute CHF - patient has elevated BNP as well as x-ray of findings of increased vascularity - no shortness of breath, no hypoxia, no lower extremity edema, no clinical evidence of volume overload - will start on Lasix, obtain echocardiogram, consult Cardiology - low-sodium diet # status post pacemaker for seizure - being followed by Dr Moore with plan for investigation in AM # hypertension - stabilized - will resume home medications once blood pressure is elevated DVT prophylaxis: Eliquis Given the patient's AFib with RVR requiring Cardizem drip, her elevated troponin, as well as acute CHF requiring IV Lasix and further evaluation by Cardiology, patient will require a minimum 2 night hospital stay for further evaluation
--- NOTE | 2022-02-05 22:32 | PC.NURSE ---
Pt transferred to floor from PACU, started cardizem gtt while in AFIB and HR sustaining 120s. Now converted into NSR, HR 60. Cardiem gtt off. Will continue to monitor.
[2022-02-05 22:57] LABS: Troponin-I High Sensitivity 132.2 ng/L (<3.5-17.0)
[2022-02-06] VITALS: BP 150/72; PULSE 60; RESP 15; TEMP 37.2; O2SAT 100
[2022-02-06] MEDS: oxyCODONE HCl Immed Release 5 MG TABLET PO (03:21)
[2022-02-06 04:00] VITALS: BP 152/58; PULSE 60; RESP 15; TEMP 37; O2SAT 95
[2022-02-06] MEDS: Furosemide 40 MG/4 ML VIAL IVPUSH (06:01)
[2022-02-06] MEDS: ondansetron HCL 4 MG/2 ML VIAL IVPUSH (06:11)
[2022-02-06 07:52] VITALS: BP 128/60; PULSE 60; RESP 18; TEMP 36.7; O2SAT 97
--- NOTE | 2022-02-06 09:27 | HO.POSTANES ---
Post Anesthesia Evaluation Post Anesthesia Evaluation Vital Signs: Vital Signs Temp Pulse Resp BP Pulse Ox O2 Del Method O2 Flow Rate 02/06/22 07:52 98.1 F 60 18 128/60 97 Room Air 02/06/22 04:00 98.6 F 60 15 152/58 H 95 Room Air 02/06/22 00:00 98.9 F 60 15 150/72 H 100 Nasal Cannula 2 Anesthesia: Monitored Mental Status: Awake Nausea/Vomiting: Mild Hydration: Adequate Anesthesia-Related Issues: No Anes. Related Issues
[2022-02-06] MEDS: Apixaban 5 MG TABLET PO (10:11)
[2022-02-06] MEDS: Cholecalciferol (Vitamin D3) 25 MCG TABLET 50 MCG PO (10:11)
[2022-02-06] MEDS: Cyanocobalamin (Vitamin B-12) 1,000 MCG TABLET 1000 MCG PO (10:12)
[2022-02-06] MEDS: Multivitamin TABLET 1 TAB PO (10:12)
[2022-02-06] MEDS: Venlafaxine HCl ER 75 MG CAP.ER.24H PO (10:13)
[2022-02-06] MEDS: dilTIAZem HCL CD 120 MG CAP.ER.DEG PO (10:13)
[2022-02-06] MEDS: Lactated Ringers 1,000 ML 100 ML IVCONT (10:16)
[2022-02-06 11:29] VITALS: BP 131/58; PULSE 60; RESP 18; TEMP 36.7; O2SAT 96
--- NOTE | 2022-02-06 11:46 | P.PNCA_ITS ---
Subjective Subjective Date of Service: 02/06/22 Principal diagnosis: Paroxysmal atrial fibrillation, elevated BNP. Interval history: Postoperative yesterday, after pacemaker placement patient episode of atrial fibrillation rapid ventricular response. BNP was elevated but without any other obvious symptoms or signs of heart failure. She was given Lasix. She is very anxious as she wants to be discharged. She says she did not sleep well and has not eaten well and wants to go home. She has remained in sinus rhythm. Pacemaker is working well. Pacemaker pocket appears benign. Review of Systems Review of Systems Yes all other systems are reviewed and are negative Physical Exam Vital Signs: Last Vital Signs Temp 98.1 F 02/06/22 11:29 Pulse 60 02/06/22 11:29 Resp 18 02/06/22 11:29 BP 131/58 L 02/06/22 11:29 Pulse Ox 96 02/06/22 11:29 O2 Del Method 02/06/22 11:29 O2 Flow Rate 2 02/06/22 00:00 BMI result Body Mass Index 24.3 Const General: comfortable and no acute distress Orientation/consciousness: patient oriented x3 HEENT Other: Unremarkable Neck Neck: Yes no JVD Chest Chest palpation & inspection: other (Pacemaker pocket on the right appears stable) Resp Auscultation: clear to auscultation bilaterally Cardio Palpation: normal PMI Heart sounds: S1 normal heart sound present, S2 normal heart sound present, no gallops, no murmurs and no rubs GI Palpation (GI): Soft to palpation Back/Spine/Pelvis Other: unremarkable Skin General skin exam: no rashes or lesions noted Neuro General: patient oriented x3 Extrem General: Yes normal to inspection Psych Mental Status: mental status grossly normal Objective Labs and Meds Result diagrams: 02/05/22 20:16 02/05/22 20:16 Lab results: Laboratory Results - last 24 hr 02/05/22 02/05/22 02/05/22 13:20 20:16 20:16 WBC 5.9 RBC 4.14 L Hgb 11.9 L Hct 37.4 MCV 90.3 MCH 28.7 MCHC 31.8 RDW 13.6 Plt Count 188 MPV 12.0 Immature Gran % (Auto) 0.3 Neut % (Auto) 70.1 Lymph % (Auto) 17.2 L [place] % (Auto) 8.1 Eos % (Auto) 3.5 Baso % (Auto) 0.8 Lymph # (Auto) 1.0 L [place] # (Auto) 0.5 Eos # (Auto) 0.2 Baso # (Auto) 0.1 Abs Immat Gran (auto) 0.02 Absolute Neuts (auto) 4.2 Absolute Nucleated RBC 0.000 Nucleated RBC % (auto) 0.0 Sodium 140 Potassium 4.0 Chloride 110 H Carbon Dioxide 23 Anion Gap 11 L BUN 26 H Creatinine 0.69 Estim Creat Clear Calc 50.6 Estimated GFR > 60 Random Glucose 90 Calcium 8.2 L D Troponin I High Sens B-Natriuretic Peptide COVID-19 (DAVE) Negative COVID-19 Clin Com See Note 02/05/22 02/05/22 20:16 22:23 WBC RBC Hgb Hct MCV MCH MCHC RDW Plt Count MPV Immature Gran % (Auto) Neut % (Auto) Lymph % (Auto) [place] % (Auto) Eos % (Auto) Baso % (Auto) Lymph # (Auto) [place] # (Auto) Eos # (Auto) Baso # (Auto) Abs Immat Gran (auto) Absolute Neuts (auto) Absolute Nucleated RBC Nucleated RBC % (auto) Sodium Potassium Chloride Carbon Dioxide Anion Gap BUN Creatinine Estim Creat Clear Calc Estimated GFR Random Glucose Calcium Troponin I High Sens 55.0 H* D 132.2 H* D B-Natriuretic Peptide 517 H COVID-19 (DAVE) COVID-19 Clin Com Imaging Radiologist's impression: Impressions Chest X-Ray 02/05/22 20:00 IMPRESSION: Placement of pacemaker. No pneumothorax. Increased pulmonary vascularity. Progress Note: A&P Assessment and plan (1) Cardiac pacemaker in situ: Status: Acute Assessment and Plan: Patient stated was cardiac pacemaker in-situ for sick sinus rhythm with significant pauses. She has tachy-trini syndrome. Pacemaker is working well. Will set up follow-up patient follow-up in 6 weeks time. Will also set up for remote telemetry follow-up. Regular wound care as per the surgical team and follow with surgical team for wound check in 7-10 days. This will be scheduled by Dr. Parkinson. (2) Paroxysmal atrial fibrillation: Status: Acute Assessment and Plan: Patient has had prior episode of paroxysmal atrial fibrillation without symptoms. She has had multiple episodes in the past even on Holter monitor. At this point time will increase her Cardizem to 180 mg daily. She has no clinical signs of heart failure. Resume Eliquis 5 mg b.i.d. as per the surgical team. Will set up for follow-up as outpatient. (3) Elevated brain natriuretic peptide (BNP) level: Status: Acute Assessment and Plan: Elevated BNP in this elderly woman without any obvious signs of heart failure. Does not require Lasix therapy as outpatient. Can resume hydrochlorothiazide outpatient. Will follow up with outpatient workup and agree stress test and echocardiogram. Advised to call me or Dr. Steele with worsening heart failure syndrome. Patient can be discharged from our perspective. Time Spent With Patient Time: Total time spent is greater than 50% in coordination of care (as documented) at patient's floor/unit and/or counseling patient: Procedures Date of Service Date of Service: 02/06/22
--- NOTE | 2022-02-07 12:30 | HO.POSTANES ---
Post Anesthesia Evaluation Post Anesthesia Evaluation Anesthesia: Monitored
--- NOTE | 2022-02-11 16:02 | P.DS_ITS ---
DS: Providers Provider Date of Service: 02/06/22 Date of discharge: 02/07/22 Primary care physician: Leatha Al MD Consults: 02/05/22 19:28 Consult to Hospitalist Routine Consulting Provider: Hospitalist Reason For Exam: Please medically manage 02/06/22 05:46 Consult to Cardiology Routine Consulting Provider: Thaddeus Lindsay Reason for consultation: A fib w RVR, CHF? elevated trop Has provider been notified: No DS: Diagnosis Discharge Diagnosis (1) Cardiac pacemaker in situ: Status: Acute (2) Paroxysmal atrial fibrillation: Status: Acute (3) Elevated brain natriuretic peptide (BNP) level: Status: Acute DS: Summary Hospital Course Hospital Course: On 02/05/2022 patient underwent a placement of dual-chamber permanent pacemaker with last prescription guidance. This operation was performed by Dr.laki Parkinson with a [employer] machine stoppage frequency checker. This operation was performed for sick sinus syndrome. On POD #1 patient was discharged home after dual-chamber pacemaker leads were interrogated by rep with all leads working properly. She will require a 2-week postoperative visit with the thoracic surgical department at [facility] with Dr. Parkinson.. Time Spent with Patient Time attestation: Total time spent providing and/or coordinating discharge services: Discharge coordination time: Less than 30 minutes Quality: Safe Use of Opioids Does Pt have an Active Cancer Diagnosis on the Problem List?: No Quality: Stroke Does the patient have a stroke diagnosis?: No Physical Exam Vital Signs: Vital Signs: Last Vital Signs Temp 98.1 F 02/06/22 11:29 Pulse 60 02/06/22 11:29 Resp 18 02/06/22 11:29 BP 131/58 L 02/06/22 11:29 Pulse Ox 96 02/06/22 11:29 O2 Del Method 02/06/22 11:29 O2 Flow Rate 2 02/06/22 00:00 BMI result Body Mass Index 24.3 Discharge Plan Discharge Patient Disposition: Home, Self-Care Referrals: Leatha Al MD [Primary Care Provider] - 1 Week Discharge Medications: No Action loratadine [Allergy Relief (loratadine)] 10 mg tablet 10 mg PO DAILY PRN (Reason: allergy symptoms) 90 Days Qty: 90 3RF hydrochlorothiazide 25 mg tablet 25 mg PO QAM Qty: 90 0RF alprazolam 0.25 mg tablet 0.5 mg PO DAILY PRN (Reason: anxiety) 1 Days Qty: 2 0RF cholecalciferol (vitamin D3) 50 mcg (2,000 unit) capsule 50 mcg PO DAILY Qty: 90 3RF cyanocobalamin (vitamin B-12) 1,000 mcg tablet 1,000 mcg PO Q OTHER DAY Qty: 45 1RF Spectravite Advanced Formula 18-400 mg-mcg tablet 1 tab PO DAILY 90 Days Qty: 90 3RF dicyclomine 20 mg tablet 20 mg PO BID PRN (Reason: IBS) 90 Days Qty: 180 3RF albuterol sulfate [ProAir HFA] 90 mcg/actuation HFA aerosol inhaler 1 inh inhalation QID PRN (Reason: shortness of breath or wheezing) 30 Days Qty: 18 1RF Eliquis 5 mg tablet 5 mg PO BID Qty: 60 2RF diltiazem HCl [Cardizem CD] 180 mg capsule,extended release 24hr 180 mg PO DAILY Qty: 30 2RF venlafaxine 75 mg capsule,extended release 24hr 75 mg PO DAILY biotin 2,500 mcg capsule 2,000 mcg PO DAILY Discharge Orders: Discharge Order (Routine); Ordered 02/06/22 Ordered By: Jaja Parkinson Discharge Date/Time: 02/06/22 12:06
== END 2022-02-06 12:06 | disposition home or self-care (01) ==
LOC: HO.SSS 13:03 → HO.IMC 19:45
PROVIDERS: Internal Medicine; Nurse Practitioner; PCP Internal Medicine; Visit Provider Surgery
PROC: (CPT 33208; principal; 2022-02-05 15:00)
DX: I48.0 Paroxysmal atrial fibrillation (principal); I49.5 Sick sinus syndrome; R77.8 Other specified abnormalities of plasma proteins; I28.8 Other diseases of pulmonary vessels; R79.89 Other specified abnormal findings of blood chemistry; I44.2 Atrioventricular block, complete; M79.7 Fibromyalgia; F43.10 Post-traumatic stress disorder, unspecified; Z79.01 Long term (current) use of anticoagulants; Z79.899 Other long term (current) drug therapy; Z88.1 Allergy status to other antibiotic agents; Z20.822 Contact with and (suspected) exposure to COVID-19; Z88.8 Allergy status to other drugs, medicaments and biological substances; Z98.84 Bariatric surgery status; Z96.652 Presence of left artificial knee joint; F17.210 Nicotine dependence, cigarettes, uncomplicated
CPT/HCPCS: 33208; 36415; 71045; 80048; 83880; 84484; 85025; 87635; C1785; C1892; C1898; J0690; J1940; J2370; J2405; J3010; J3370; Q9967

== ENCOUNTER 2022-02-08 12:51 | Outpatient (REF) | payer MEDICARE, SELFPAY ==
--- NOTE | ~2022-02-08 | US_ITS ---
EXAMINATION: US EXTRACRANIAL CAROTID DUPLEX, BILATERAL CLINICAL INFORMATION: This is a 76-year-old female with bilateral carotid artery stenosis. History of tobacco use. Hypertension. History of pacemaker. Congestive heart failure. Carotid artery disease. COMPARISON: Comparison is made to previous study dated 08/05/2016 which demonstrated bilateral 0-49% internal carotid artery stenoses. TECHNIQUE: Real-time ultrasound and Doppler techniques (integrating B-mode 2-D vascular images, Doppler spectral analysis and color-flow Doppler imaging) were utilized to interrogate the extracranial carotid arteries, the vertebral arteries and proximal subclavian arteries bilaterally. The degree of stenosis is determined by criteria similar to NASCET. FINDINGS: Right Side: 1. There is mild atherosclerotic plaque seen in the bifurcation/proximal ICA region. 2. The common carotid artery PSV proximally is 53 cm/s and distally 51 cm/s. 3. The proximal internal carotid artery velocities are 79 cm/s systolic and 30 cm/s diastolic. 4. The proximal external carotid artery PSV is 96 cm/s. 5. The vertebral artery shows antegrade flow. 6. The subclavian artery waveforms are normal. Left Side: 1. There is mild atherosclerotic plaque seen in the bifurcation/proximal ICA region. 2. The common carotid artery PSV proximally is 65 cm/s and distally 70 cm/s. 3. The proximal internal carotid artery velocities are 82 cm/s systolic and 28 cm/s diastolic. 4. The proximal external carotid artery PSV is 138 cm/s. 5. The vertebral artery shows antegrade flow. 6. The subclavian artery waveforms are normal. The duplex portion examination demonstrates an arrhythmia. US/US carotid duplex BI IMPRESSION: 1. RIGHT: Minimal, non-hemodynamically significant stenosis of the proximal right internal carotid artery corresponding to a 0-49% stenosis by velocity criteria. 2. LEFT: Minimal, non-hemodynamically significant stenosis of the proximal left internal carotid artery corresponding to a 0-49% stenosis by velocity criteria. 3. There is no change in the category severity of disease when compared to the previous study dated 08/05/2016. 4. An arrhythmia was noted throughout the duplex portion of the examination.
== END 2022-02-08 12:52 | disposition home or self-care (01) ==
LOC: HO.HMGCX 12:51
PROVIDERS: Visit Provider Internal Medicine
DX: I65.23 Occlusion and stenosis of bilateral carotid arteries (principal)
CPT/HCPCS: 93880

== ENCOUNTER → 2022-02-19 10:42 | Outpatient (BNVA) | payer MEDICARE, SELFPAY | PROVIDERS: PCP Internal Medicine; Visit Provider Surgery | DX: Z87.891 Personal history of nicotine dependence (principal); Z95.0 Presence of cardiac pacemaker | CPT/HCPCS: 99212 ==

== ENCOUNTER → 2022-03-12 09:34 | Outpatient (REF) | payer OTHER, SELFPAY ==
--- NOTE | ~2022-03-12 | NM_ITS ---
Lexiscan Myocardial perfusion study Indication: Atrial fibrillation, assess for coronary disease and ischemia Technique: The patient was brought in for a Lexiscan perfusion study on 03/12/2022 and was injected 0.4 mg of Lexiscan intravenously. Within a minute of this injection 25 mCi of sestamibi was given intravenously. Images were obtained using the SPECT gamma camera interlaced with the gating device. Images were obtained in supine position. Resting perfusion study was performed on 03/16/2022. Patient was administered 25 mCi of sestamibi intravenously at rest. Images were then obtained in supine position. Total DLP 68mGy-cm. Images were processed with the software and compared side to side in short axis, horizontal long axis and vertical long axis views. Findings: Raw acquisition reviewed. The stress perfusion study showed diminished tracer uptake in the basal septal and basal lateral wall. With CT attrition correction there seems to be improvement in the lateral wall, suggesting possibly soft tissue attenuation artifact. The gated study shows normal LV systolic function with calculated LVEF of > 70%. LV cavity is normal in size. The gated study shows reduced thickening in the basal to mid part of septum and lateral wall. Resting study shows diminished tracer uptake in the basal part of septum. CT attenuation images are also similar. Gating at rest reveals ejection fraction at > 70%. Diminished contractility in the basal to mid septum/lateral wall. The findings are consistent with reversible basal lateral defect. Fixed basal to mid septal defect. NM/NM isabell perf SPECT rest & str Impression: 1. Myocardial perfusion imaging study shows reversible basal lateral defect, but improving with CT attenuation correction and hence probably from soft tissue attenuation. Less likely from lateral ischemia. Fixed basal to mid septal defect, again probably artifactual. Correlate clinically. 2. Gated LVEF is > 70% during stress and rest. 3. Transient ischemic dilatation not present. EKG component of the test reported separately.
--- NOTE | 2022-03-12 09:36 | CA_ITS ---
Acquisition Time: 2022-03-12 09:59:09 Total Exercise Time: 00:02:00 Test Indications: ELEVATED BMP Medications: SEE CHART Protocol: LEXISCAN Max HR: 080 BPM 55% of Pred: 145 BPM Max BP: 178/068 mmHG Max Work Load: 1.0 METS Pharmacological stress test with Lexiscan injection, while sitting and kicking her legs, without anginal symptoms, with A paced rhythm, isolated V paced beats and intermittent sycuan beats, with normotensive response to injection, with nondiagnostic EKG for ischemia. In recovery she reported headache, that was treated with Aminophylline 75mg IVP to reverse Lexiscan with resolution of symptom. Nuclear images pending. Test reviewed with Dr Steele. Referred By: Thaddeus Lindsay Overread By: MARYAN DAVEY
== END ==
LOC: HO.CARD 09:34
PROVIDERS: PCP Internal Medicine; Visit Provider Internal Medicine Cardiovascular Disease
DX: R79.89 Other specified abnormal findings of blood chemistry (principal); I48.91 Unspecified atrial fibrillation
CPT/HCPCS: 78452; 93017; A9500; J0280; J2785

== ENCOUNTER → 2022-03-15 14:23 | Outpatient (BNVA) | payer OTHER, SELFPAY | PROVIDERS: PCP Internal Medicine; Referring Provider Internal Medicine; Visit Provider Internal Medicine | DX: Z45.018 Encounter for adjustment and management of other part of cardiac pacemaker (principal); I48.0 Paroxysmal atrial fibrillation; I10 Essential (primary) hypertension | CPT/HCPCS: 93280; 99212 ==

== ENCOUNTER → 2022-03-17 13:46 | Outpatient (REF) | payer OTHER, SELFPAY ==
--- NOTE | 2022-03-17 13:51 | CA_ITS ---
Transthoracic Echocardiogram Patient (Last, First, Middle): Millie Mendez A Gender: Female Date of : 1945 Age: 76 Procedure Date: 03/17/2022 Procedure Type: Transthoracic Echocardiogram Location: OP Height: 152.4 cm Weight: 54.43 kg BSA: 1.50 m2 Heart Rate: bpm BP: 110 / 68 mmHg Roll Tube Setter: TO Referring MD: Thaddeus Lindsay MD [employer] Consultant: Thaddeus Lindsay MD Symptoms: R79.89 - Other specified abnormal findings of blood chemistry Study Quality: Fair ECG Rhythm: Sinus Conclusions: - 1. Normal LV systolic function with pseudonormal filling pattern 2. Moderately dilated left atrium 3. Normal cardiac valvular Doppler 4. Mildly elevated right ventricular systolic pressure with mildly elevated right atrial pressures 5. No gross pericardial effusion Findings Left Ventricle Normal left ventricular size, thickness, and systolic function. Spectral Doppler is indicative of a pseudonormal filling pattern. E/E prime ratio is between 8 and 15 consistent with indeterminate filling pressures. Right Ventricle Mildly increased right ventricular cavity size. There is normal right ventricular systolic function. Atria The left atrium is moderately dilated. There is no evidence of interatrial shunt. The right atrium is likely dilated. Aortic Valve There is mild calcification of the aortic valve. There is no aortic valve stenosis. There is no aortic valve regurgitation. Mitral Valve There is mild anterior and posterior mitral leaflet thickening. There is trace mitral valve regurgitation. There is no mitral valve stenosis. Pulmonic Valve The pulmonic valve was not well visualized. Tricuspid Valve Likely normal tricuspid valve structure and function. There is mild tricuspid valve regurgitation. Mildly elevated right atrial pressure. Mild pulmonary hypertension is present. Great Vessels All visible segments of the aorta are normal in size. The pulmonary artery was not well visualized. Venous The inferior vena cava is moderately dilated and collapses less than 50% with inspiration. Pericardium/Pleural There is no evidence of pericardial effusion. Prior Study Comparison Changes noted compared to prior study dated: 02/10/2021. LV diastolic filling pattern is pseudonormal Measurements 2D Linear Measurements IVSd: 0.86 0.6-0.9/0.6-1.0 cm LVIDd: 3.71 3.9-5.3/4.2-5.9 cm LVIDd Index: 2.47 2.4-3.2/2.2-3.1 cm/m2 LVIDs: 2.39 2.0-3.6 cm LVPWd: 0.81 0.7-1.1 cm LA Diam: 3.50 2.7-3.8/3.0-4.0 cm LAIDs Index: 2.33 1.5-2.3 cm/m2 LV Mass: 108.48 67-162/88-224 g LV Mass Index: 72.32 43-95/49-115 g/m2 LVOT Diam: 2.00 3.0+(-)1.3 cm 2D Systolic Function EF 4C: 60.00 >55% EF 2C: 64.40 >55% EF BiP: 62.60 >55% Mitral Valve MV Pk E: 1.01 MV PK A: 0.75 MV Decel Time: 195.00 E/A: 1.40 E'Lateral: 7.51 E'Medial: 7.62 E/E' Med: 13.30 E/E' Lat: 13.40 PHT: 57.00 MVA PHT: 3.86 Decel [place]: 5.16 Aortic Valve AoV Pk Deacon: 1.16 AoV Mn Deacon: 0.70 AoV VTI: 0.25 AoV Pk Grad: 5.00 Aov Mn Grad: 2.00 KE[place] Cont.VTI: 3.24 LVOT LVOT Pk Deacon: 1.18 LVOT Mn Deacon: 0.67 LVOT VTI: 0.26 LVOT Pk Grad: 6.00 LVOT Mn Grad: 2.00 LVOT Diam: 2.00 LVOT Area: 3.14 Diastolic Function MV Pk E: 1.01 MV Pk A: 0.75 E/A: 1.40 E'Medial: 7.62 E/E' Med: 13.30 E' Laterial: 7.51 E/E' Lat: 13.40 Right Ventricle TAPSE (mm): 27.90 TVS' Deacon: 13.20 Tricuspid Valve TR Pk Deacon: 2.81 TR Pk Grad: 32.00 RA Press: 8.00 RVSP: 40.00 Great Vessels Aorta Sinus of Valsalva: 3.03 2.0-3.5 cm Ao Asc: 2.74 2.1-3.4 cm Updated in Other Vendor System with Status of Final Thaddeus Lindsay MD electronically signed on 03/18/2022 5:26:54 PM with status of Final
== END ==
LOC: HO.CARD 13:46
PROVIDERS: PCP Internal Medicine; Visit Provider Internal Medicine Cardiovascular Disease
DX: R79.89 Other specified abnormal findings of blood chemistry (principal)
CPT/HCPCS: 93306

== ENCOUNTER → 2022-04-29 13:51 | Outpatient (BNVA) | payer OTHER, SELFPAY | PROVIDERS: PCP Internal Medicine; Referring Provider Internal Medicine; Visit Provider Internal Medicine | DX: I48.0 Paroxysmal atrial fibrillation (principal); I49.5 Sick sinus syndrome; I10 Essential (primary) hypertension | CPT/HCPCS: 99212 ==

== ENCOUNTER → 2022-10-18 13:00 | Outpatient (BNVA) | payer OTHER, SELFPAY | PROVIDERS: PCP Internal Medicine; Referring Provider Internal Medicine; Visit Provider Internal Medicine | DX: Z45.018 Encounter for adjustment and management of other part of cardiac pacemaker (principal); I48.0 Paroxysmal atrial fibrillation; I49.5 Sick sinus syndrome; I10 Essential (primary) hypertension | CPT/HCPCS: 93280; 99212 ==

== ENCOUNTER 2023-04-21 08:12 | Outpatient (AMB) | payer OTHER, SELFPAY ==
--- NOTE | 2023-04-21 10:21 | MHC.PC.OV ---
Intake Visit Reasons: Med Follow Up ~ Allergies acetaminophen [From Vicodin] Allergy (Unknown, Verified 04/21/23 10:22) Hives, Shortness of Breath, swelling, rash hydrocodone [From Vicodin] Allergy (Unknown, Verified 04/21/23 10:22) Hives, Shortness of Breath, swelling, rash levofloxacin [Levaquin] Allergy (Unknown, Verified 04/21/23 10:22) unknown morphine Allergy (Unknown, Verified 04/21/23 10:22) Itching/Hives, swelling,rash buprenorphine [From Butrans] Adverse Reaction (Severe, Verified 04/21/23 10:22) severe itching Seasonal / Environmental Allergy (Unknown, Uncoded 10/18/22 13:34) Unknown Medication List - Last Reconciled 04/21/23 by Leatha Al MD albuterol sulfate 90 mcg/actuation (ProAir HFA) 1 inh inhalation QID PRN 30 days alprazolam 0.5 mg (2 x 0.25 mg) PO DAILY PRN 1 day apixaban (Eliquis) 5 mg PO BID biotin 2,000 mcg PO DAILY cholecalciferol (vitamin D3) 50 mcg PO DAILY cyanocobalamin (vitamin B-12) 1,000 mcg PO Q OTHER DAY dicyclomine 20 mg PO BID PRN 90 days diltiazem HCl 240 mg PO DAILY loratadine (Allergy Relief (loratadine)) 10 mg PO DAILY PRN 90 days vdoohsrrvduy-pbqp-dlujd acid 18-400 mg-mcg (Spectravite Advanced Formula) 1 tab PO DAILY 90 days venlafaxine ER 37.5 mg PO BID Tobacco use date assessed: 04/21/23 Fall risk assessment: No Falls in past year Last assessed Fall Risk: 04/21/23 Dental Screening Dental Screen Date: 04/21/23 Did you have a dental visit in the last 12 months?: Yes Did you have a dental problem in the last 6 months where you did not have access to dental care?: No Was dental information given to patient?: Patient has dentist HPI Med Follow Up ~ HPI Details Patient is 77-year-old female she was seen last May of last year Patient missed her 6 month follow-up appointment after that IBS: Stable with dicyclomine she is taking it as needed. Patient is also on B12 supplement every other day And vitamin-D daily for deficiency. She is due for labs order placed to be done fasting I see that she has a physical exam appointment scheduled for June Patient is seeing Cardiology Dr. Steele for better access mole atrial fibrillation And is on Eliquis patient also have a pacemaker due to sick sinus syndrome Her medications are diltiazem 240 mg daily for blood pressure control and heart rate controlled Loratadine for allergies Anxiety and depression treated by Psychiatry with the help of venlafaxine and alprazolam [facility] Medical History Lumbar spondylosis PTSD (post-traumatic stress disorder) Fibromyalgia Pain management Osteoarthritis Surgical History History of cholecystectomy History of cardiac pacemaker H/O colonoscopy History of bilateral breast reduction surgery History of hysterectomy History of right knee surgery History of gastric bypass History of left knee replacement Family History Father Colon cancer Mother Lung cancer Son No problems noted. Son No problems noted. Son No problems noted. Daughter No problems noted. Social History Household Members: None Housing: Apartment Do you presently have visiting nurse or other home services: No Alcohol intake: never Patient Tobacco Use Status: Current everyday Tobacco user Tobacco use type: Cigarette Cigarette Packs Per Day: 0.75 Cigarettes Per Day: 3 Years Smoked: 50 +/- e-Cigarette/Vaping Use: Never Used Second Hand Smoke Exposure: Yes service: No Current occupational status: retired Cognitive needs: No Hearing needs: No Vision needs: Yes Questionnaire PHQ-9 Over the last 2 weeks, how often have you been bothered by any of the following problems? 47752 - PHQ-9 Billing: Patient declined-do not bill Source: Developed by Drs. Wilver Hutchinson, Belen Villa, True Dash and colleagues, with an educational brown from [employer]. Thrive Questionnaire Date Thrive assessed: 04/10/21 AUDIT C Alcohol Use Questionnaire (AUDIT-C) 1. How often do you have a drink containing alcohol?: Never 3. How often do you have six or more drinks on one occasion?: Never Total Score: 0 Score Reviewed/Action Taken: Yes Review of Systems Const Denies chills and Denies fever(s) ENT Denies epistaxis and Denies nasal discharge Card Denies chest pain Resp Denies chest congestion, Denies cough and Denies hemoptysis GI Denies diarrhea and Denies nausea Skin/Breast Denies rash Neuro Reports no additional complaints Psych Reports no additional complaints Endo Reports no additional complaints Physical exam (Primary Care) Tobacco/Smoking Status: Tobacco use Status Tobacco use date assessed 04/21/23 04/21/23 10:22 Patient Tobacco Use Status Current everyday Tobacco 04/21/23 10:22 Tobacco use type Cigarette 04/21/23 10:22 e-Cigarette/Vaping Use Never Used 04/21/23 10:22 Thrive Assessment: Date of Thrive Assessment Date Thrive assessed 04/10/21 04/21/23 10:22 Telehealth Telehealth Location of provider rendering services: practice address Location of patient: address on file Patient Identification confirmed using: Name, : Yes Telehealth method: voice only Patient verbally consented to treatment: Yes Patient verbally consented to billing insurance company: Yes Patient informed of any privacy concerns related to visit: Yes Minutes spent on Phone/Video with Pt.: 15 Assessment and Plan Assessment & Plan (1) Hypertension, essential: Code(s): I10 - Essential (primary) hypertension (2) PAF (paroxysmal atrial fibrillation): Code(s): I48.0 - Paroxysmal atrial fibrillation (3) B12 deficiency: Code(s): E53.8 - Deficiency of other specified B group vitamins (4) Vitamin D deficiency: Code(s): E55.9 - Vitamin D deficiency, unspecified (5) Anxiety, generalized: Code(s): F41.1 - Generalized anxiety disorder (6) Environmental allergies: Code(s): Z91.09 - Other allergy status, other than to drugs and biological substances (7) Irritable bowel syndrome: Code(s): K58.9 - Irritable bowel syndrome without diarrhea Qualifiers: Irritable bowel syndrome type: with diarrhea Qualified Code(s): K58.0 - Irritable bowel syndrome with diarrhea (8) Pacemaker: Onset Date: ~01/2022 Comment: ([facility] DC[facility] - placed 02/05/22) Code(s): Z95.0 - Presence of cardiac pacemaker Plan Patient is 77-year-old female she was seen last May of last year Patient missed her 6 month follow-up appointment after that IBS: Stable with dicyclomine she is taking it as needed. Patient is also on B12 supplement every other day And vitamin-D daily for deficiency. She is due for labs order placed to be done fasting I see that she has a physical exam appointment scheduled for June Patient is seeing Cardiology Dr. Steele for better access mole atrial fibrillation And is on Eliquis patient also have a pacemaker due to sick sinus syndrome Her medications are diltiazem 240 mg daily for blood pressure control and heart rate controlled Loratadine for allergies Anxiety and depression treated by Psychiatry with the help of venlafaxine and alprazolam Orders: Orders Complete Blood Count Auto Diff Today E53.8 - Deficiency of other specified B group vitamins, E55.9 - Vitamin D deficiency, unspecified, F41.1 - Generalized anxiety disorder, I10 - Essential (primary) hypertension, I48.0 - Paroxysmal atrial fibrillation, Z91.09 - Other allergy status, other than to drugs and biological substances Lipid Panel Today E53.8 - Deficiency of other specified B group vitamins, E55.9 - Vitamin D deficiency, unspecified, F41.1 - Generalized anxiety disorder, I10 - Essential (primary) hypertension, I48.0 - Paroxysmal atrial fibrillation, Z91.09 - Other allergy status, other than to drugs and biological substances TSH reflex Free T4 Today E53.8 - Deficiency of other specified B group vitamins, E55.9 - Vitamin D deficiency, unspecified, F41.1 - Generalized anxiety disorder, I10 - Essential (primary) hypertension, I48.0 - Paroxysmal atrial fibrillation, Z91.09 - Other allergy status, other than to drugs and biological substances Comprehensive [place]. Panel Fast Today E53.8 - Deficiency of other specified B group vitamins, E55.9 - Vitamin D deficiency, unspecified, F41.1 - Generalized anxiety disorder, I10 - Essential (primary) hypertension, I48.0 - Paroxysmal atrial fibrillation, Z91.09 - Other allergy status, other than to drugs and biological substances Vitamin B12 Today E53.8 - Deficiency of other specified B group vitamins, E55.9 - Vitamin D deficiency, unspecified, F41.1 - Generalized anxiety disorder, I10 - Essential (primary) hypertension, I48.0 - Paroxysmal atrial fibrillation, Z91.09 - Other allergy status, other than to drugs and biological substances Vitamin D 25-OH (D2 and D3) Today E53.8 - Deficiency of other specified B group vitamins, E55.9 - Vitamin D deficiency, unspecified, F41.1 - Generalized anxiety disorder, I10 - Essential (primary) hypertension, I48.0 - Paroxysmal atrial fibrillation, Z91.09 - Other allergy status, other than to drugs and biological substances Coding Level of Care Code Tele Est Pt Level 4 (11064) Diagnoses Hypertension, essential I10 PAF (paroxysmal atrial fibrillation) I48.0 B12 deficiency E53.8 Vitamin D deficiency E55.9 Anxiety, generalized F41.1 Environmental allergies Z91.09 Irritable bowel syndrome with diarrhea K58.0 Irritable bowel syndrome type: with diarrhea Pacemaker Z95.0
== END 2023-04-21 16:41 | disposition home or self-care (01) ==
LOC: HO.HMGC 08:12
PROVIDERS: PCP Internal Medicine; Visit Provider Internal Medicine
DX: I10 Essential (primary) hypertension (principal); E55.9 Vitamin D deficiency, unspecified; Z91.09 Other allergy status, other than to drugs and biological substances; K58.0 Irritable bowel syndrome with diarrhea; I48.0 Paroxysmal atrial fibrillation; E53.8 Deficiency of other specified B group vitamins; F41.1 Generalized anxiety disorder; Z95.0 Presence of cardiac pacemaker
CPT/HCPCS: 99214

== ENCOUNTER → 2023-05-11 23:59 | Outpatient (BNV) | payer OTHER, SELFPAY ==
--- NOTE | 2023-05-12 13:23 | MHC.OFFVIS ---
Intake Intake Visit Reasons: Remote Device Check- [facility] Allergies acetaminophen [From Vicodin] Allergy (Unknown, Verified 04/21/23 10:22) Hives, Shortness of Breath, swelling, rash hydrocodone [From Vicodin] Allergy (Unknown, Verified 04/21/23 10:22) Hives, Shortness of Breath, swelling, rash levofloxacin [Levaquin] Allergy (Unknown, Verified 04/21/23 10:22) unknown morphine Allergy (Unknown, Verified 04/21/23 10:22) Itching/Hives, swelling,rash buprenorphine [From Butrans] Adverse Reaction (Severe, Verified 04/21/23 10:22) severe itching Seasonal / Environmental Allergy (Unknown, Uncoded 10/18/22 13:34) Unknown [facility] Medical History Lumbar spondylosis PTSD (post-traumatic stress disorder) Fibromyalgia Pain management Osteoarthritis Surgical History History of cholecystectomy History of cardiac pacemaker H/O colonoscopy History of bilateral breast reduction surgery History of hysterectomy History of right knee surgery History of gastric bypass History of left knee replacement Family History Father Colon cancer Mother Lung cancer Son No problems noted. Son No problems noted. Son No problems noted. Daughter No problems noted. Social History Household Members: None Housing: Apartment Do you presently have visiting nurse or other home services: No Alcohol intake: never Patient Tobacco Use Status: Current everyday Tobacco user Tobacco use type: Cigarette Cigarette Packs Per Day: 0.75 Cigarettes Per Day: 3 Years Smoked: 50 +/- Packs Per Year: 0 Packs per year/per ci.00 e-Cigarette/Vaping Use: Never Used Second Hand Smoke Exposure: Yes service: No Current occupational status: retired Cognitive needs: No Hearing needs: No Vision needs: Yes Office Procedures Cardiac Device Check Cardiac Device Check Details: Date of service- 05/11/2023 ; Battery life >8 years; normal lead parameters; AP 97%; INFORMATICA MDM ARCHITECT <1%; no significant arrhythmias. Overall normal device function. [id number] Cardiac Device Interrogation, pacemaker Procedure code (CPT) selection complete Assessment & Plan Assessment & Plan (1) PAF (paroxysmal atrial fibrillation): Code(s): I48.0 - Paroxysmal atrial fibrillation Coding Level of Care Code Procedure Only Diagnoses PAF (paroxysmal atrial fibrillation) I48.0 CPT Codes Cardiac Device Check - Cardiac Device 12: [id number] Cardiac Device Interrogation, pacemaker ([id number])
== END ==
PROVIDERS: PCP Internal Medicine; Visit Provider Internal Medicine
DX: I48.0 Paroxysmal atrial fibrillation (principal); Z95.0 Presence of cardiac pacemaker
CPT/HCPCS: 93294

== ENCOUNTER 2023-06-28 15:21 | Outpatient (AMB) | payer OTHER, SELFPAY ==
[2023-06-28 15:22] VITALS: BP 136/72; PULSE 60; O2SAT 98; BMI 22.5
--- NOTE | 2023-06-28 15:22 | MHC.PC.OV ---
Vital Signs 06/28/23 15:22 Height 5 ft Weight 115 lb 4 oz BMI 22.5 BP 136/72 Blood Pressure Location Lt brachial Position Sitting Pulse 60 Pulse Source Pulse Oximeter Pulse Oximetry (%) 98 Oxygen Delivery Method Room Air Intake Visit Reasons: Annual Physical Allergies acetaminophen [From Vicodin] Allergy (Unknown, Verified 06/28/23 15:23) Hives, Shortness of Breath, swelling, rash hydrocodone [From Vicodin] Allergy (Unknown, Verified 06/28/23 15:23) Hives, Shortness of Breath, swelling, rash levofloxacin [Levaquin] Allergy (Unknown, Verified 06/28/23 15:23) unknown morphine Allergy (Unknown, Verified 06/28/23 15:23) Itching/Hives, swelling,rash buprenorphine [From Butrans] Adverse Reaction (Severe, Verified 06/28/23 15:23) severe itching Seasonal / Environmental Allergy (Unknown, Uncoded 10/18/22 13:34) Unknown Medication List - Last Reconciled 06/28/23 by Leatha Al MD albuterol sulfate 90 mcg/actuation (ProAir HFA) 1 inh inhalation QID PRN 30 days alprazolam 0.5 mg (2 x 0.25 mg) PO DAILY PRN 1 day apixaban (Eliquis) 5 mg PO BID biotin 2,000 mcg PO DAILY cholecalciferol (vitamin D3) 50 mcg PO DAILY cyanocobalamin (vitamin B-12) 1,000 mcg PO Q OTHER DAY dicyclomine 20 mg PO BID PRN 90 days diltiazem HCl 240 mg PO DAILY loratadine (Allergy Relief (loratadine)) 10 mg PO DAILY PRN 90 days zrczuzwhtenc-ltil-folro acid 18-400 mg-mcg (Spectravite Advanced Formula) 1 tab PO DAILY 90 days venlafaxine ER 37.5 mg PO BID Tobacco use date assessed: 06/28/23 Fall risk assessment: No Falls in past year Last assessed Fall Risk: 06/28/23 Dental Screening Dental Screen Date: 06/28/23 Did you have a dental visit in the last 12 months?: No Did you have a dental problem in the last 6 months where you did not have access to dental care?: No Was dental information given to patient?: Patient has dentist HPI Annual Physical HPI Details Patient is 77-year-old female came in today for physical examination Lab order placed in April, patient did not do it IBS: Stable with dicyclomine she is taking it as needed. Patient is also on B12 supplement every other day And vitamin-D daily for deficiency. Paroxysmally atrial fibrillation: Patient is seeing Dr. Steele and is taking Eliquis She has a pacemaker due to sick sinus syndrome Her medications are diltiazem 240 mg daily for blood pressure control and heart rate controlled Loratadine for allergies Anxiety and depression treated by Psychiatry with the help of venlafaxine and alprazolam Due for mammogram Due for colonoscopy referral placed On the medications from PCP office Vitamin-D Vitamin B Dicyclomine [facility] Medical History (Updated 06/28/23 @ 15:52 by Leatha Al MD) Lumbar spondylosis PTSD (post-traumatic stress disorder) Fibromyalgia Pain management Osteoarthritis Surgical History History of cholecystectomy History of cardiac pacemaker H/O colonoscopy History of bilateral breast reduction surgery History of hysterectomy History of right knee surgery History of gastric bypass History of left knee replacement Family History Father Colon cancer Mother Lung cancer Son No problems noted. Son No problems noted. Son No problems noted. Daughter No problems noted. Social History Household Members: None Housing: Apartment Do you presently have visiting nurse or other home services: No Alcohol intake: never Patient Tobacco Use Status: Current everyday Tobacco user Tobacco use type: Cigarette Cigarette Packs Per Day: 0.75 Cigarettes Per Day: 3 Years Smoked: 50 +/- e-Cigarette/Vaping Use: Never Used Second Hand Smoke Exposure: Yes service: No Current occupational status: retired Cognitive needs: No Hearing needs: No Vision needs: Yes Questionnaire PHQ-9 Over the last 2 weeks, how often have you been bothered by any of the following problems? 1. Little interest or pleasure in doing things: not at all 2. Feeling down, depressed, or hopeless: not at all 3. Trouble falling or staying asleep, or sleeping too much: not at all 4. Feeling tired or having little energy: several days 5. Poor appetite or overeating: several days 6. Feeling bad about yourself - or that you are a failure or have let yourself or your family down: not at all 7. Trouble concentrating on things, such as reading the newspaper or watching television: not at all 8. Moving or speaking so slowly that other people could have noticed. Or the opposite - being so fidgety or restless that you have been moving around a lot more than usual: several days 9. Thoughts that you would be better off or of hurting yourself in some way: not at all Total score: 3 Depression Screening Interpretation: Negative Depression Screening Done: Yes 78515 - PHQ-9 Billing: Yes Source: Developed by Drs. Wilver Hutchinson, Belen Villa, True Dash and colleagues, with an educational brown from [employer]. Thrive Questionnaire Date Thrive assessed: 04/10/21 AUDIT C Alcohol Use Questionnaire (AUDIT-C) 1. How often do you have a drink containing alcohol?: Never 3. How often do you have six or more drinks on one occasion?: Never Total Score: 0 Score Reviewed/Action Taken: Yes Review of Systems Const Denies chills, Denies fever(s) and Denies headache(s) Eyes Denies blurry vision ENT Denies headache(s), Denies nasal discharge, Denies nasal obstruction, Denies odynophagia and Denies sinus pain Card Denies chest pain at rest and Denies chest pain with activity Resp Denies cough and Denies hemoptysis GI Denies odynophagia, Denies vomiting and Denies hematemesis Reports as per HPI Musc Denies abnormal gait Skin/Breast Reports as per HPI Neuro Denies Neuro-related abnormal movements, Denies Abnormal speech present, Denies abnormal gait, Denies headache(s) and Denies Sensory deficit (Neuro) Psych Denies mood swings and Denies paranoia Endo Reports as per HPI Vicente/Lymph Reports as per HPI Aller/Immun Reports as per HPI Physical exam (Primary Care) Vital Signs: Last Vital Signs Pulse 60 06/28/23 15:22 BP 136/72 06/28/23 15:22 Pulse Ox 98 06/28/23 15:22 Oxygen Delivery Method Room Air 06/28/23 15:22 BMI result Body Mass Index 22.5 Tobacco/Smoking Status: Tobacco use Status Tobacco use date assessed 06/28/23 06/28/23 15:25 Patient Tobacco Use Status Current everyday Tobacco 06/28/23 15:25 Tobacco use type Cigarette 06/28/23 15:25 e-Cigarette/Vaping Use Never Used 06/28/23 15:25 Depression Screening Interpretation: Negative Thrive Assessment: Date of Thrive Assessment Date Thrive assessed 04/10/21 06/28/23 15:25 Const General: cooperative, comfortable and no acute distress Orientation/consciousness: patient oriented x3 HENMT Head: Yes normocephalic and Yes atraumatic Eyes General: appearance normal, both eyes and all related structures Pupils: Equal, round and reactive pupils present EOM: EOMs intact bilaterally Neck Neck: Yes supple and No lymphadenopathy Thyroid: Thyroid normal Lymphatic: no lymphadenopathy noted Chest Breast/axilla palpation: normal palpation of the breasts Resp Effort & Inspection: normal respiratory effort and able to speak in complete sentences Auscultation: clear to auscultation bilaterally Cardio Heart sounds: S1 normal heart sound present and S2 normal heart sound present GI Palpation (GI): Soft to palpation and nontender Auscultation: normal bowel sounds General: Yes no CVA tenderness Back/Spine/Pelvis Back: no CVA tenderness Skin General skin exam: elasticity normal and turgor normal Neuro General: patient oriented x3 and gait normal Cranial nerves: Yes Equal, round and reactive pupils present Speech: No Abnormal speech present Sensory Exam: No Sensory deficit (Neuro) Coordination: Romberg test negative Extrem General: Yes normal exam except as noted and No edema Assessment and Plan Assessment & Plan (1) Encounter for general adult medical examination with abnormal findings: Code(s): Z00.01 - Encounter for general adult medical examination with abnormal findings (2) Colon cancer screening: Code(s): Z12.11 - Encounter for screening for malignant neoplasm of colon (3) Major depression, recurrent: Code(s): F33.9 - Major depressive disorder, recurrent, unspecified Qualifiers: Active/Remission status: in partial remission Qualified Code(s): F33.41 - Major depressive disorder, recurrent, in partial remission (4) Sick sinus syndrome: Code(s): I49.5 - Sick sinus syndrome (5) Pacemaker: Onset Date: ~01/2022 Comment: ([facility] DCPP - placed 02/05/22) Code(s): Z95.0 - Presence of cardiac pacemaker (6) PAF (paroxysmal atrial fibrillation): Code(s): I48.0 - Paroxysmal atrial fibrillation (7) Environmental allergies: Code(s): Z91.09 - Other allergy status, other than to drugs and biological substances (8) Dizziness: Code(s): R42 - Dizziness and giddiness (9) Hypertension, essential: Code(s): I10 - Essential (primary) hypertension (10) Osteoarthritis of multiple joints: Code(s): M15.9 - Polyosteoarthritis, unspecified Qualifiers: Osteoarthritis type: primary Qualified Code(s): M15.9 - Polyosteoarthritis, unspecified (11) Bilateral carotid artery stenosis: Code(s): I65.23 - Occlusion and stenosis of bilateral carotid arteries (12) Irritable bowel syndrome: Code(s): K58.9 - Irritable bowel syndrome without diarrhea Qualifiers: Irritable bowel syndrome type: with diarrhea Qualified Code(s): K58.0 - Irritable bowel syndrome with diarrhea (13) Osteoporosis: Onset Date: ~2010 Comment: (Bone Dexa: Femoral T-Score -2.5 on 05/21/2011, left hip -3.7 on 06/02/2015) Code(s): M81.0 - Age-related osteoporosis without current pathological fracture Qualifiers: Osteoporosis type: age-related Presence of current pathological fracture: without current pathological fracture Qualified Code(s): M81.0 - Age-related osteoporosis without current pathological fracture (14) Anxiety, generalized: Code(s): F41.1 - Generalized anxiety disorder (15) B12 deficiency: Code(s): E53.8 - Deficiency of other specified B group vitamins (16) Vitamin D deficiency: Code(s): E55.9 - Vitamin D deficiency, unspecified (17) PTSD (post-traumatic stress disorder): Code(s): F43.10 - Post-traumatic stress disorder, unspecified Plan Patient is 77-year-old female came in today for physical examination Lab order placed in April, patient did not do it IBS: Stable with dicyclomine she is taking it as needed. Patient is also on B12 supplement every other day And vitamin-D daily for deficiency. Paroxysmally atrial fibrillation: Patient is seeing Dr. Steele and is taking Eliquis She has a pacemaker due to sick sinus syndrome Her medications are diltiazem 240 mg daily for blood pressure control and heart rate controlled Loratadine for allergies Anxiety and depression treated by Psychiatry with the help of venlafaxine and alprazolam Due for mammogram Due for colonoscopy referral placed On the medications from PCP office Vitamin-D Vitamin B Dicyclomine Orders: Orders MM tomosynthesis screening BI Today Z12.31 - Encounter for screening mammogram for malignant neoplasm of breast Referrals Gastroenterology Referral Z12.11 - Encounter for screening for malignant neoplasm of colon Coding Level of Care Code Est Pt Prev Care >65y(86205) Diagnoses Encounter for general adult medical examination with abnormal findings Z00.01 Colon cancer screening Z12.11 Recurrent major depressive disorder, in partial remission F33.41 Active/Remission status: in partial remission Sick sinus syndrome I49.5 Pacemaker Z95.0 PAF (paroxysmal atrial fibrillation) I48.0 Environmental allergies Z91.09 Dizziness R42 Hypertension, essential I10 Primary osteoarthritis involving multiple joints M15.9 Osteoarthritis type: primary Bilateral carotid artery stenosis I65.23 Irritable bowel syndrome with diarrhea K58.0 Irritable bowel syndrome type: with diarrhea Age-related osteoporosis without current pathological fracture M81.0 Osteoporosis type: age-related Presence of current pathological fracture: without current pathological fracture Anxiety, generalized F41.1 B12 deficiency E53.8 Vitamin D deficiency E55.9 PTSD (post-traumatic stress disorder) F43.10
== END 2023-06-28 15:53 | disposition home or self-care (01) ==
PROVIDERS: Visit Provider Internal Medicine
DX: Z00.00 Encounter for general adult medical examination without abnormal findings (principal); F33.41 Major depressive disorder, recurrent, in partial remission; I49.5 Sick sinus syndrome; I48.0 Paroxysmal atrial fibrillation; Z12.11 Encounter for screening for malignant neoplasm of colon; Z95.0 Presence of cardiac pacemaker; Z91.09 Other allergy status, other than to drugs and biological substances; R42 Dizziness and giddiness; I10 Essential (primary) hypertension; M15.9 Polyosteoarthritis, unspecified; I65.23 Occlusion and stenosis of bilateral carotid arteries; K58.0 Irritable bowel syndrome with diarrhea
CPT/HCPCS: 99397

== ENCOUNTER → 2023-08-10 23:59 | Outpatient (BNV) | payer OTHER, SELFPAY ==
--- NOTE | 2023-08-15 18:01 | A.OFFVIS_ITS ---
Intake Intake Visit Reasons: Remote Device Check- [facility] Allergies acetaminophen [From Vicodin] Allergy (Unknown, Verified 06/28/23 15:23) Hives, Shortness of Breath, swelling, rash hydrocodone [From Vicodin] Allergy (Unknown, Verified 06/28/23 15:23) Hives, Shortness of Breath, swelling, rash levofloxacin [Levaquin] Allergy (Unknown, Verified 06/28/23 15:23) unknown morphine Allergy (Unknown, Verified 06/28/23 15:23) Itching/Hives, swelling,rash buprenorphine [From Butrans] Adverse Reaction (Severe, Verified 06/28/23 15:23) severe itching Seasonal / Environmental Allergy (Unknown, Uncoded 10/18/22 13:34) Unknown [facility] Medical History (Updated 06/28/23 @ 15:52 by Leatha Al MD) Lumbar spondylosis PTSD (post-traumatic stress disorder) Fibromyalgia Pain management Osteoarthritis Surgical History History of cholecystectomy History of cardiac pacemaker H/O colonoscopy History of bilateral breast reduction surgery History of hysterectomy History of right knee surgery History of gastric bypass History of left knee replacement Family History Father Colon cancer Mother Lung cancer Son No problems noted. Son No problems noted. Son No problems noted. Daughter No problems noted. Social History Household Members: None Housing: Apartment Do you presently have visiting nurse or other home services: No Alcohol intake: never Patient Tobacco Use Status: Current everyday Tobacco user Tobacco use type: Cigarette Cigarette Packs Per Day: 0.75 Cigarettes Per Day: 3 Years Smoked: 50 +/- e-Cigarette/Vaping Use: Never Used Second Hand Smoke Exposure: Yes service: No Current occupational status: retired Cognitive needs: No Hearing needs: No Vision needs: Yes Office Procedures Cardiac Device Check Cardiac Device Check Details: Date of service- 08/10/2023 ; Battery life >8 years; normal lead parameters; AP 96%; 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 Overall normal device function. [id number] Cardiac Device Interrogation, pacemaker Procedure code (CPT) selection complete Assessment & Plan Assessment & Plan (1) PAF (paroxysmal atrial fibrillation): Code(s): I48.0 - Paroxysmal atrial fibrillation Plan x Coding Level of Care Code Procedure Only Diagnoses PAF (paroxysmal atrial fibrillation) I48.0 CPT Codes Cardiac Device Check - Cardiac Device 12: [id number] Cardiac Device Interrogation, pacemaker ([id number])
== END ==
PROVIDERS: PCP Internal Medicine; Visit Provider Internal Medicine
DX: I48.0 Paroxysmal atrial fibrillation (principal); Z95.0 Presence of cardiac pacemaker
CPT/HCPCS: 93294

== ENCOUNTER 2023-10-17 13:06 | Outpatient (AMB) | payer OTHER, SELFPAY ==
--- NOTE | 2023-10-17 13:27 | MHC.OFFVIS ---
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 Accompanied by: Self / Same As Patient Allergies acetaminophen [From Vicodin] Allergy (Unknown, Verified 10/17/23 13:30) Hives, Shortness of Breath, swelling, rash hydrocodone [From Vicodin] Allergy (Unknown, Verified 10/17/23 13:30) Hives, Shortness of Breath, swelling, rash levofloxacin [Levaquin] Allergy (Unknown, Verified 10/17/23 13:30) unknown morphine Allergy (Unknown, Verified 10/17/23 13:30) Itching/Hives, swelling,rash buprenorphine [From Butrans] Adverse Reaction (Severe, Verified 10/17/23 13:30) severe itching Seasonal / Environmental Allergy (Unknown, Uncoded 10/17/23 13:30) Unknown Medication List - Last Reconciled 10/17/23 by Jalen Steele MD albuterol sulfate 90 mcg/actuation (ProAir HFA) 1 inh inhalation QID PRN 30 days alprazolam 0.5 mg (2 x 0.25 mg) PO DAILY PRN 1 day apixaban (Eliquis) 5 mg PO BID biotin 2,000 mcg PO DAILY cholecalciferol (vitamin D3) 50 mcg PO DAILY cyanocobalamin (vitamin B-12) 1,000 mcg PO Q OTHER DAY dicyclomine 20 mg PO BID PRN 90 days diltiazem HCl 360 mg PO DAILY loratadine (Allergy Relief (loratadine)) 10 mg PO DAILY PRN 90 days xyxudjifvrhy-rdvz-acgyr acid 18-400 mg-mcg (Spectravite Advanced Formula) 1 tab PO DAILY 90 days venlafaxine ER 37.5 mg PO BID HPI HPI Comments History of Present Illness Details Millie returns for follow-up. In 2021, she was given a Holter monitor for further evaluation of atrial fibrillation, but that showed frequent pauses as much as 8.9 seconds. Subsequently, underwent pacemaker placement. Occasionally, she has sensation of palpitations but for the most part she is doing fine. Numerous aches and pains and constitutional symptoms. [facility] Medical History (Updated 06/28/23 @ 15:52 by Leatha Al MD) Lumbar spondylosis PTSD (post-traumatic stress disorder) Fibromyalgia Pain management Osteoarthritis Surgical History History of cholecystectomy History of cardiac pacemaker H/O colonoscopy History of bilateral breast reduction surgery History of hysterectomy History of right knee surgery History of gastric bypass History of left knee replacement Family History Father Colon cancer Mother Lung cancer Son No problems noted. Son No problems noted. Son No problems noted. Daughter No problems noted. Social History Household Members: None Housing: Apartment Do you presently have visiting nurse or other home services: No Alcohol intake: never Patient Tobacco Use Status: Current everyday Tobacco user Tobacco use type: Cigarette Cigarette Packs Per Day: 0.75 Cigarettes Per Day: 3 Years Smoked: 50 +/- e-Cigarette/Vaping Use: Never Used Second Hand Smoke Exposure: Yes service: No Current occupational status: retired Cognitive needs: No Hearing needs: No Vision needs: Yes Review of Systems Const Denies weakness ENT Denies dizziness Card Denies chest pain, Denies chest pain with activity, Denies syncope, Denies rapid heart rate, Denies pedal edema, Denies edema, Denies leg edema, Denies palpitations, Denies dyspnea, Denies dyspnea on exertion and Denies orthopnea Resp Denies cough, Denies dyspnea and Denies dyspnea on exertion GI Denies hematochezia and Denies change in stool character Musc Denies abnormal gait, Denies muscle cramps, Denies muscle weakness, Denies numbness, Denies radiating pain into limb and Denies tingling Neuro Denies abnormal gait, Denies dizziness, Denies syncope, Denies numbness, Denies tingling and Denies weakness Endo Denies palpitations Physical Exam Vital Signs: Last Vital Signs Pulse 94 10/17/23 13:28 BP 150/80 H 10/17/23 13:28 BMI result Body Mass Index 23.3 Const General: comfortable and no acute distress Orientation/consciousness: patient oriented x3 HEENT Other: Unremarkable Head: Yes normal to inspection Neck Neck: Yes normal visual inspection Chest Chest palpation & inspection: normal inspection of the chest Resp Auscultation: clear to auscultation bilaterally Cardio Palpation: normal PMI Heart sounds: S1 normal heart sound present, S2 normal heart sound present, no gallops, no murmurs and no rubs GI Palpation (GI): Soft to palpation Back/Spine/Pelvis Other: unremarkable Skin General skin exam: no rashes or lesions noted Neuro General: patient oriented x3 Extrem General: Yes normal to inspection Psych Mental Status: mental status grossly normal Office Procedures Cardiac Device Check Cardiac Device Check Details: Pacemaker interrogated today. Dual-chamber device, programmed DDDR mode. Battery status 5-9 years proximally. Normal lead parameters. She has been in atrial fibrillation last few days. Atrial pacing is about 65%. Ventricular pacing 1.2%. Overall atrial fibrillation burden 32%. [id number] Cardiac Device Check, pacemaker dual lead Procedure code (CPT) selection complete EKG Details: EKG with atrial fibrillation at a rate of 94/Min; no significant ST-T changes and otherwise unremarkable. [id number], Complete Assessment & Plan Assessment & Plan (1) PAF (paroxysmal atrial fibrillation): Code(s): I48.0 - Paroxysmal atrial fibrillation Plan: Has recently been in atrial fibrillation. Findings discussed with patient. Her rate is slightly fast but not too fast. She is on diltiazem. Cannot tolerate beta-blockers. Hence once we get her BMP, possibly add some digoxin. Discussed about cardioversion but not clear how much she understood. We can see how she does on rate control. Continue Eliquis. She has not had labs in a while and hence needs that done. Cardiac testing- Echocardiogram with normal LVEF, moderate diastolic dysfunction, moderately dilated left atrium. Myocardial perfusion imaging without any clear ischemic findings. (2) Sick sinus syndrome: Code(s): I49.5 - Sick sinus syndrome Plan: Status post pacemaker. Functioning appropriately. (3) Hypertension, essential: Code(s): I10 - Essential (primary) hypertension Plan: Slightly high blood pressure today. Advised her to do home checks and let us know. Orders: Orders Comprehensive [place]. Panel Fast 04/21/23 E53.8 - Deficiency of other specified B group vitamins, E55.9 - Vitamin D deficiency, unspecified, F41.1 - Generalized anxiety disorder, I10 - Essential (primary) hypertension, I48.0 - Paroxysmal atrial fibrillation, Z91.09 - Other allergy status, other than to drugs and biological substances Complete Blood Count no Diff Today I48.0 - Paroxysmal atrial fibrillation Coding Level of Care Code Est Pt Level 4 (97299) Diagnoses PAF (paroxysmal atrial fibrillation) I48.0 Sick sinus syndrome I49.5 Hypertension, essential I10 CPT Codes Cardiac Device Check - Cardiac Device 2: [id number] Cardiac Device Check, pacemaker dual lead ([id number]) EKG - CPT: 26638-Avxalgwyixydxmqqz, Complete ([id number])
[2023-10-17 13:28] VITALS: BP 150/80; PULSE 94; BMI 23.3
== END 2023-10-17 13:54 | disposition home or self-care (01) ==
PROVIDERS: Visit Provider Internal Medicine
DX: I48.0 Paroxysmal atrial fibrillation (principal); I49.5 Sick sinus syndrome; I10 Essential (primary) hypertension; Z95.0 Presence of cardiac pacemaker
CPT/HCPCS: 93280; 99214

== ENCOUNTER 2023-10-17 13:06 | Outpatient (REF) | payer OTHER, SELFPAY ==
[2023-10-17 14:52] LABS: Hematocrit 41.1 % (37.0-47.0); Hemoglobin 13.4 g/dl (12.0-16.0); Mean Corpuscular HGB Conc 32.6 g/dl (31.0-35.0); Mean Corpuscular Hemoglobin 29.8 pg (27.0-33.0); Mean Corpuscular Volume 91.3 fL (80.0-98.0); Platelet Count 267 X10*3/uL (160-400); Red Cell Distribution Width 13.6 % (11.0-16.0)
[2023-10-17 15:53] LABS: Alanine Aminotransferase 15 U/L (0-31); Albumin Level 4.4 g/dL (3.5-5.0); Alkaline Phosphatase 97 U/L (39-117); Anion Gap 10 (12-20); Aspartate Amino Transferase 21 U/L (5-31); Bilirubin Total 0.3 mg/dL (0.0-1.0); Blood Urea Nitrogen 24 mg/dL (9-16); Calcium 9.6 mg/dL (8.4-10.2); Carbon Dioxide 29 mmol/L (22-29); Chloride 109 mmol/L (96-108); Cholesterol 220 mg/dL (<200); Estimated Glomerular Filt Rate > 60; Glucose Fasting 89 mg/dL (60-99); HDL Cholesterol 89 mg/dL (>40); LDL Cholesterol Calculated 114 mg/dL (<100); Potassium 4.3 mmol/L (3.3-5.1); Sodium 144 mmol/L (135-145); TSH reflex Free T4 0.73 uIU/mL (0.32-4.0); Total Protein 7.4 g/dL (6.5-8.0); Triglycerides 86 mg/dL (<150)
[2023-10-17 16:00] LABS: Vitamin B12 1555 pg/mL (200-900)
[2023-10-21 15:24] LABS: Vitamin D 25-OH, D2 <4 ng/mL; Vitamin D 25-OH, D3 44 ng/mL; Vitamin D 25-OH, Total 44 ng/mL (30-100)
== END 2023-10-17 13:07 | disposition home or self-care (01) ==
LOC: HO.LAB 13:06
PROVIDERS: PCP Internal Medicine; Visit Provider Internal Medicine
DX: E53.8 Deficiency of other specified B group vitamins (principal); E55.9 Vitamin D deficiency, unspecified; F41.1 Generalized anxiety disorder; Z91.09 Other allergy status, other than to drugs and biological substances; I48.0 Paroxysmal atrial fibrillation; I49.5 Sick sinus syndrome; I10 Essential (primary) hypertension
CPT/HCPCS: 36415; 80053; 80061; 82306; 82607; 84443; 85027; 93005; 93280; 99212

== ENCOUNTER → 2023-11-09 23:59 | Outpatient (BNV) | payer OTHER, SELFPAY ==
--- NOTE | 2023-11-15 11:59 | MHC.OFFVIS ---
Intake Intake Visit Reasons: Remote Device Check- [facility] Allergies acetaminophen [From Vicodin] Allergy (Unknown, Verified 10/17/23 13:30) Hives, Shortness of Breath, swelling, rash hydrocodone [From Vicodin] Allergy (Unknown, Verified 10/17/23 13:30) Hives, Shortness of Breath, swelling, rash levofloxacin [Levaquin] Allergy (Unknown, Verified 10/17/23 13:30) unknown morphine Allergy (Unknown, Verified 10/17/23 13:30) Itching/Hives, swelling,rash buprenorphine [From Butrans] Adverse Reaction (Severe, Verified 10/17/23 13:30) severe itching Seasonal / Environmental Allergy (Unknown, Uncoded 10/17/23 13:30) Unknown [facility] Medical History (Updated 06/28/23 @ 15:52 by Leatha Al MD) Lumbar spondylosis PTSD (post-traumatic stress disorder) Fibromyalgia Pain management Osteoarthritis Surgical History History of cholecystectomy History of cardiac pacemaker H/O colonoscopy History of bilateral breast reduction surgery History of hysterectomy History of right knee surgery History of gastric bypass History of left knee replacement Family History Father Colon cancer Mother Lung cancer Son No problems noted. Son No problems noted. Son No problems noted. Daughter No problems noted. Social History Household Members: None Housing: Apartment Do you presently have visiting nurse or other home services: No Alcohol intake: never Patient Tobacco Use Status: Current everyday Tobacco user Tobacco use type: Cigarette Cigarette Packs Per Day: 0.75 Cigarettes Per Day: 3 Years Smoked: 50 +/- e-Cigarette/Vaping Use: Never Used Second Hand Smoke Exposure: Yes service: No Current occupational status: retired Cognitive needs: No Hearing needs: No Vision needs: Yes Office Procedures Cardiac Device Check Cardiac Device Check Details: Date of service- 11/09/2023 ; Battery life >5 years; normal lead parameters; AP 14%; 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 Overall normal device function. [id number] Cardiac Device Interrogation, pacemaker Procedure code (CPT) selection complete Assessment & Plan Assessment & Plan (1) PAF (paroxysmal atrial fibrillation): Code(s): I48.0 - Paroxysmal atrial fibrillation Plan x Coding Level of Care Code Procedure Only Diagnoses PAF (paroxysmal atrial fibrillation) I48.0 CPT Codes Cardiac Device Check - Cardiac Device 12: [id number] Cardiac Device Interrogation, pacemaker ([id number])
== END ==
PROVIDERS: PCP Internal Medicine; Visit Provider Internal Medicine
DX: I48.0 Paroxysmal atrial fibrillation (principal); Z95.0 Presence of cardiac pacemaker
CPT/HCPCS: 93294

== ENCOUNTER 2023-11-16 11:57 | Outpatient (REF) | payer OTHER, SELFPAY ==
[2023-11-16 14:05] LABS: Digoxin 0.8 ng/mL (0.8-2.0)
== END 2023-11-16 11:58 | disposition home or self-care (01) ==
LOC: HO.HMGCLDS 11:57
PROVIDERS: PCP Internal Medicine; Visit Provider Internal Medicine
DX: I48.0 Paroxysmal atrial fibrillation (principal); Z79.899 Other long term (current) drug therapy
CPT/HCPCS: 36415; 80162

== ENCOUNTER 2024-01-04 13:17 | Outpatient (AMB) | payer OTHER, SELFPAY ==
--- NOTE | 2024-01-04 13:34 | A.OFFVIS_ITS ---
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 Accompanied by: Self / Same As Patient Allergies acetaminophen [From Vicodin] Allergy (Unknown, Verified 10/17/23 13:30) Hives, Shortness of Breath, swelling, rash hydrocodone [From Vicodin] Allergy (Unknown, Verified 10/17/23 13:30) Hives, Shortness of Breath, swelling, rash levofloxacin [Levaquin] Allergy (Unknown, Verified 10/17/23 13:30) unknown morphine Allergy (Unknown, Verified 10/17/23 13:30) Itching/Hives, swelling,rash buprenorphine [From Butrans] Adverse Reaction (Severe, Verified 10/17/23 13:30) severe itching Seasonal / Environmental Allergy (Unknown, Uncoded 10/17/23 13:30) Unknown Medication List - Last Reconciled 01/04/24 by Jalen Steele MD albuterol sulfate 90 mcg/actuation (ProAir HFA) 1 inh inhalation QID PRN 30 days alprazolam 0.5 mg (2 x 0.25 mg) PO DAILY PRN 1 day apixaban (Eliquis) 5 mg PO BID biotin 2,000 mcg PO DAILY cholecalciferol (vitamin D3) 50 mcg PO DAILY cyanocobalamin (vitamin B-12) 1,000 mcg PO Q OTHER DAY digoxin 125 mcg PO DAILY diltiazem HCl CD 360 mg PO DAILY loratadine (Allergy Relief (loratadine)) 10 mg PO DAILY PRN 90 days rhqlnujohkeo-ctep-owvau acid 18-400 mg-mcg (Spectravite Advanced Formula) 1 tab PO DAILY 90 days venlafaxine ER 37.5 mg PO BID HPI Comments Details: Millie returns for follow-up. In 2021, she was given a Holter monitor for further evaluation of atrial fibrillation, but that showed frequent pauses as much as 8.9 seconds. Subsequently, underwent pacemaker placement. Overall, she is generally doing good. Rare palpitations. Nonspecific dizziness, somewhat random. Otherwise getting along fine. [facility] Medical History (Updated 06/28/23 @ 15:52 by Leatha Al MD) Lumbar spondylosis PTSD (post-traumatic stress disorder) Fibromyalgia Pain management Osteoarthritis Surgical History History of cholecystectomy History of cardiac pacemaker H/O colonoscopy History of bilateral breast reduction surgery History of hysterectomy History of right knee surgery History of gastric bypass History of left knee replacement Family History Father Colon cancer Mother Lung cancer Son No problems noted. Son No problems noted. Son No problems noted. Daughter No problems noted. Social History Household Members: None Housing: Apartment Do you presently have visiting nurse or other home services: No Alcohol intake: never Patient Tobacco Use Status: Current everyday Tobacco user Tobacco use type: Cigarette Cigarette Packs Per Day: 0.75 Cigarettes Per Day: 3 Years Smoked: 50 +/- e-Cigarette/Vaping Use: Never Used Second Hand Smoke Exposure: Yes service: No Current occupational status: retired Cognitive needs: No Hearing needs: No Vision needs: Yes Review of Systems Const Denies chills, Denies fatigue, Denies fever(s), Denies frequent falls, Denies weakness, Denies weight gain and Denies weight loss ENT Denies dizziness Card Denies chest pain, Denies leg edema, Denies lightheadedness, Denies palpitations, Denies dyspnea and Denies dyspnea on exertion Resp Denies cough, Denies dyspnea and Denies dyspnea on exertion GI Denies hematochezia Musc Denies abnormal gait, Denies muscle weakness, Denies numbness, Denies radiating pain into limb and Denies tingling Neuro Denies abnormal gait, Denies dizziness, Denies frequent falls, Denies numbness, Denies tingling and Denies weakness Endo Denies fatigue and Denies palpitations Physical Exam Vital Signs: Last Vital Signs Pulse 78 01/04/24 13:35 BP 102/60 01/04/24 13:35 BMI result Body Mass Index 22.6 Const General: comfortable and no acute distress Orientation/consciousness: patient oriented x3 HEENT Other: Unremarkable Head: Yes normal to inspection Neck Neck: Yes normal visual inspection Chest Chest palpation & inspection: normal inspection of the chest Resp Auscultation: clear to auscultation bilaterally Cardio Palpation: normal PMI Heart sounds: S1 normal heart sound present, S2 normal heart sound present, no gallops, no murmurs and no rubs GI Palpation (GI): Soft to palpation Back/Spine/Pelvis Other: unremarkable Skin General skin exam: no rashes or lesions noted Neuro General: patient oriented x3 Extrem General: Yes normal to inspection Psych Mental Status: mental status grossly normal Office Procedures EKG Details: EKG with atrial fibrillation at a rate of 78/Min. Nonspecific ST-T changes. Could be digoxin effects. [id number], Complete Assessment & Plan Assessment & Plan (1) PAF (paroxysmal atrial fibrillation): Code(s): I48.0 - Paroxysmal atrial fibrillation Category: Medical Plan: Has been in atrial fibrillation for the last few months or so. Symptoms of minimal from what she describes. Continue diltiazem and digoxin. Previously, could not tolerate beta-blockers. We discussed about cardioversion but in the absence of much of symptoms, we decided to leave it on rate control for now. Otherwise, continue anticoagulation without changes. Cardiac testing- Echocardiogram with normal LVEF, moderate diastolic dysfunction, moderately dilated left atrium. Myocardial perfusion imaging without any clear ischemic findings. (2) Sick sinus syndrome: Code(s): I49.5 - Sick sinus syndrome Category: Medical Plan: Status post pacemaker. Functioning appropriately. (3) Hypertension, essential: Code(s): I10 - Essential (primary) hypertension Category: Medical Plan: Stable. No changes. Coding Level of Care Code Est Pt Level 4 (43041) Diagnoses PAF (paroxysmal atrial fibrillation) I48.0 Sick sinus syndrome I49.5 Hypertension, essential I10 CPT Codes EKG - CPT: 15181-[id number], Complete ([id number])
[2024-01-04 13:35] VITALS: BP 102/60; PULSE 78; BMI 22.6
== END 2024-01-04 14:06 | disposition home or self-care (01) ==
LOC: HO.HCS 13:28
PROVIDERS: PCP Internal Medicine; Visit Provider Internal Medicine
DX: I48.0 Paroxysmal atrial fibrillation (principal); I49.5 Sick sinus syndrome; I10 Essential (primary) hypertension
CPT/HCPCS: 93010; 99214

== ENCOUNTER → 2024-01-04 13:28 | Outpatient (BNVA) | payer OTHER, SELFPAY | PROVIDERS: PCP Internal Medicine; Visit Provider Internal Medicine | DX: I48.0 Paroxysmal atrial fibrillation (principal); I49.5 Sick sinus syndrome; I10 Essential (primary) hypertension; Z95.0 Presence of cardiac pacemaker | CPT/HCPCS: 93005; 99212 ==

== ENCOUNTER 2024-01-13 13:02 | Day surgery (SDC) | payer OTHER, SELFPAY ==
--- NOTE | 2024-01-11 11:48 | P.CONAN_ITS ---
Documented by User: Shilpa Hsieh NP 01/11/24 11:55 HPI - Anesthesia Eval Consult details Narrative: 78yo F for Cardioversion Eliquis for afib Pacer in situ for SSS PMFSH Active Problems Active Problems: All Active Problems Major depression, recurrent (Acute) PTSD (post-traumatic stress disorder) (Acute) Osteoarthritis of multiple joints (Acute) Personal history of nicotine dependence (Acute) Pacemaker (Acute ~01/2022) Sick sinus syndrome (Acute) PAF (paroxysmal atrial fibrillation) (Acute) Junctional rhythm (Acute) Hypertension, essential (Acute) Bilateral carotid artery stenosis (Acute) Dizziness (Acute) Swelling of toe of both feet (Acute) Environmental allergies (Acute) Irritable bowel syndrome (Acute) Osteoporosis (Acute ~2010) Anxiety, generalized (Acute) B12 deficiency (Acute) Vitamin D deficiency (Acute) Breast lump on left side at 3 o'clock position (Acute) Past Medical History Medical History Lumbar spondylosis PTSD (post-traumatic stress disorder) Fibromyalgia Pain management Osteoarthritis Family History Family History Father Colon cancer Mother Lung cancer Son No problems noted. Son No problems noted. Son No problems noted. Daughter No problems noted. Family history of problems with anesthesia: No Surgical History Surgical History (Updated 01/13/24 @ 13:35 by Amira Mosquera RN) History of cholecystectomy History of cardiac pacemaker H/O colonoscopy History of bilateral breast reduction surgery History of hysterectomy History of gastric bypass History of left knee replacement History of Problems with Anesthesia: No Social History Social History Household Members: None Housing: Apartment Do you presently have visiting nurse or other home services: No Alcohol intake: never Patient Tobacco Use Status: Current someday Tobacco user Tobacco use type: Cigarette Cigarette Packs Per Day: 0.75 Cigarettes Per Day: 3 Years Smoked: 50 +/- e-Cigarette/Vaping Use: Never Used Second Hand Smoke Exposure: Yes Use of substances other than those prescribed or required for medical reasons: No Are you DNR?: No Advance Directives: No Advance Directives Information Provided: Yes service: No Current occupational status: retired Cognitive needs: No Hearing needs: No Vision needs: Yes Meds Allergies Allergy/AdvReac Type Severity Reaction Status Date / Time acetaminophen [From Vicodin] Allergy Unknown Hives, Verified 10/17/23 13:30 Shortness of Breath, swelling, rash hydrocodone [From Vicodin] Allergy Unknown Hives, Verified 10/17/23 13:30 Shortness of Breath, swelling, rash levofloxacin [Levaquin] Allergy Unknown unknown Verified 10/17/23 13:30 morphine Allergy Unknown Itching/Hives, Verified 10/17/23 13:30 swelling,rash buprenorphine [From Butrans] AdvReac Severe severe Verified 10/17/23 13:30 itching Seasonal / Environmental Allergy Unknown Unknown Uncoded 10/17/23 13:30 Home Medications ?Medication ?Instructions ?Recorded ?Confirmed ?Last Taken ?Type biotin 2,500 mcg capsule 2,000 mcg PO DAILY 02/18/21 01/04/24 02/04/22 History venlafaxine 37.5 mg 37.5 mg PO BID 04/29/22 01/13/24 01/13/24 History capsule,extended release 24 hr Exam Narrative Narrative: EKG 12/2023 atrial fibrillation at a rate of 78/Min. Nonspecific ST-T changes. Could be digoxin effects. 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 Overall normal device function. Assessment and Plan Assessment Anesthesia Assessment: Chart Reviewed Final Anesthetic Review Family History of Problems with Anesthesia: No History of Problems with Anesthesia: No Documented by User: Connie Starr MD 01/13/24 13:49 PMF Past Medical History Medical History Lumbar spondylosis PTSD (post-traumatic stress disorder) Fibromyalgia Pain management Osteoarthritis Family History Family History Father Colon cancer Mother Lung cancer Son No problems noted. Son No problems noted. Son No problems noted. Daughter No problems noted. Surgical History Surgical History (Updated 01/13/24 @ 13:35 by Amira Mosquera RN) History of cholecystectomy History of cardiac pacemaker H/O colonoscopy History of bilateral breast reduction surgery History of hysterectomy History of gastric bypass History of left knee replacement Social History Social History Household Members: None Housing: Apartment Do you presently have visiting nurse or other home services: No Alcohol intake: never Patient Tobacco Use Status: Current someday Tobacco user Tobacco use type: Cigarette Cigarette Packs Per Day: 0.75 Cigarettes Per Day: 3 Years Smoked: 50 +/- e-Cigarette/Vaping Use: Never Used Second Hand Smoke Exposure: Yes Use of substances other than those prescribed or required for medical reasons: No Are you DNR?: No Advance Directives: No Advance Directives Information Provided: Yes service: No Current occupational status: retired Cognitive needs: No Hearing needs: No Vision needs: Yes Meds Allergies Allergy/AdvReac Type Severity Reaction Status Date / Time acetaminophen [From Vicodin] Allergy Unknown Hives, Verified 10/17/23 13:30 Shortness of Breath, swelling, rash hydrocodone [From Vicodin] Allergy Unknown Hives, Verified 10/17/23 13:30 Shortness of Breath, swelling, rash levofloxacin [Levaquin] Allergy Unknown unknown Verified 10/17/23 13:30 morphine Allergy Unknown Itching/Hives, Verified 10/17/23 13:30 swelling,rash buprenorphine [From Butrans] AdvReac Severe severe Verified 10/17/23 13:30 itching Seasonal / Environmental Allergy Unknown Unknown Uncoded 10/17/23 13:30 Home Medications ?Medication ?Instructions ?Recorded ?Confirmed ?Last Taken ?Type biotin 2,500 mcg capsule 2,000 mcg PO DAILY 02/18/21 01/04/24 02/04/22 History venlafaxine 37.5 mg 37.5 mg PO BID 04/29/22 01/13/24 01/13/24 History capsule,extended release 24 hr Exam Airway Mallampati Class: II TM Dist: >3cm Neck ROM: Full Heart: irreg Lungs: cta Assessment and Plan Assessment Anesthesia Assessment: Anesthesia Plan Discussed Final Anesthetic Review NPO: Yes ASA Class: III Final Preanesthetic Review: No Changes in Pt Med Stat, Meds/Allgs Chart Reviewed and Consent Obtained/Reviewed Patient Risk: Low Procedure Risk: Low Anesthetic Plan Anesthetic Plan: MAC: Disposition: Standard PACU
[2024-01-13 13:27] VITALS: BMI 23.3
--- NOTE | 2024-01-13 13:30 | PC.NURSE ---
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
[2024-01-13 13:43] VITALS: BP 140/72; PULSE 77; RESP 16; TEMP 37.1; O2SAT 98
--- NOTE | 2024-01-13 13:43 | MHC.SHP ---
Pre-Procedural Eval Section A - 24 Hr Update-Section A only Date of Service: 01/13/24 The patient is an INPATIENT: No The patient has been examined within 24 hours of the surgical procedure. The History & Physical has been completed within 30 days and I have reviewed it.: Yes Section B - Complete if H&P > 30 days Chief Complaint: Paroxysmal atrial fibrillation Allergies: Allergies Allergy/AdvReac Type Severity Reaction Status Date / Time acetaminophen [From Vicodin] Allergy Unknown Hives, Verified 10/17/23 13:30 Shortness of Breath, swelling, rash hydrocodone [From Vicodin] Allergy Unknown Hives, Verified 10/17/23 13:30 Shortness of Breath, swelling, rash levofloxacin [Levaquin] Allergy Unknown unknown Verified 10/17/23 13:30 morphine Allergy Unknown Itching/Hives, Verified 10/17/23 13:30 swelling,rash buprenorphine [From Butrans] AdvReac Severe severe Verified 10/17/23 13:30 itching Seasonal / Environmental Allergy Unknown Unknown Uncoded 10/17/23 13:30 Plan I have reviewed the history and physical and performed a pertinent physical examination on my patient. No changes have occurred unless specified. Time Spent With Patient Time: Total time managing care of this patient today ____ minutes.
--- NOTE | 2024-01-13 13:43 | HO.CARDIVERS ---
Cardioversion Procedure Note Cardioversion Date of Procedure: 01/13/2024 Indication for Procedure: Atrial fibrillation with rapid rate and dizziness. Pre-Op Diagnosis: Atrial fibrillation Post-Op Diagnosis: Sinus rhythm. Consent: Informed consent obtained. Procedure: After informed consent was obtained, patient was taken to the PACU. The patient was then positioned appropriately. The cardioversion pads were placed in anteroposterior position. Once under anesthesia, 120 joules of synchronized shock was administered. The rhythm converted from atrial fibrillation to atrial paced rhythm. Patient remained in sinus rhythm after the end of procedure. Complications: None. Impression: Successful cardioversion from atrial fibrillation to atrial paced rhythm. Recommendations: Start amiodarone. Stop digoxin. Continue anticoagulation. Follow-up in clinic.
[2024-01-13] MEDS: 0.9 % Sodium Chloride 1,000 ML 50 ML IVCONT (13:55)
--- NOTE | 2024-01-13 14:30 | ECG_ITS ---
Test Reason : s/p cardioversion Blood Pressure : / mmHG Vent. Rate : 060 BPM Atrial Rate : 060 BPM P-R Int : 180 ms QRS Dur : 074 ms QT Int : 414 ms P-R-T Axes : 100 054 112 degrees QTc Int : 414 ms Atrial-paced rhythm ST & T wave abnormality, consider inferior ischemia Abnormal ECG When compared with ECG of 27-NOV-2021 16:52, Electronic atrial pacemaker has replaced Atrial fibrillation Vent. rate has decreased BY 38 BPM Nonspecific T wave abnormality now evident in Lateral leads Referred By: Abby Almeida Electronically Signed By:ABBY ALMEIDA
[2024-01-13 14:37] VITALS: BP 135/49; PULSE 60; RESP 21; TEMP 36.9; O2SAT 99
[2024-01-13 14:52] VITALS: BP 147/60; PULSE 60; RESP 20; O2SAT 100
[2024-01-13] MEDS: Amiodarone HCL 200 MG TABLET 400 MG PO (15:00)
[2024-01-13 15:05] VITALS: BP 130/64; PULSE 60; RESP 20; O2SAT 100
[2024-01-13 15:20] VITALS: BP 137/57; PULSE 60; RESP 16; TEMP 36.6; O2SAT 96
== END 2024-01-13 15:45 | disposition home or self-care (01) ==
PROVIDERS: PCP Internal Medicine; Visit Provider Internal Medicine
PROC: 5A2204Z Restoration of Cardiac Rhythm, Single (ICD-10-PCS; principal; 2024-01-13 14:50)
DX: I48.0 Paroxysmal atrial fibrillation (principal); I10 Essential (primary) hypertension; Z79.01 Long term (current) use of anticoagulants; Z79.899 Other long term (current) drug therapy; Z95.0 Presence of cardiac pacemaker; Z88.5 Allergy status to narcotic agent
CPT/HCPCS: 92960; 93005; J2704

== ENCOUNTER → 2024-01-13 13:02 | Outpatient (BNV) | payer OTHER, SELFPAY | PROVIDERS: PCP Internal Medicine; Visit Provider Internal Medicine | DX: I48.91 Unspecified atrial fibrillation (principal) | CPT/HCPCS: 92960; 93010 ==

== ENCOUNTER 2024-01-20 12:52 | Outpatient (AMB) | payer OTHER, SELFPAY ==
--- NOTE | 2024-01-20 13:14 | AM.OFFVISNUR ---
Intake Intake Visit Reasons: EKG Allergies acetaminophen [From Vicodin] Allergy (Unknown, Verified 10/17/23 13:30) Hives, Shortness of Breath, swelling, rash hydrocodone [From Vicodin] Allergy (Unknown, Verified 10/17/23 13:30) Hives, Shortness of Breath, swelling, rash levofloxacin [Levaquin] Allergy (Unknown, Verified 10/17/23 13:30) unknown morphine Allergy (Unknown, Verified 10/17/23 13:30) Itching/Hives, swelling,rash buprenorphine [From Butrans] Adverse Reaction (Severe, Verified 10/17/23 13:30) severe itching Seasonal / Environmental Allergy (Unknown, Uncoded 10/17/23 13:30) Unknown Nursing Note PT IS TAKING AMIODARONE 200 MG PO DAILY/ 400 MG PO BID PT HAS NURSE VISIT POST CARDIO VERSION EKG LEFT ON PROVIDERS DESK FOR REVIEW Office Procedures EKG [id number], Complete Coding CPT Codes EKG - CPT: 80028-Gtihehlorpodeumam, Complete ([id number])
== END 2024-01-20 13:25 | disposition home or self-care (01) ==
PROVIDERS: PCP Internal Medicine; Visit Provider Internal Medicine
DX: R94.31 Abnormal electrocardiogram [ECG] [EKG] (principal)
CPT/HCPCS: 93010

== ENCOUNTER → 2024-01-20 12:52 | Outpatient (BNVA) | payer OTHER, SELFPAY | PROVIDERS: PCP Internal Medicine; Visit Provider Internal Medicine | DX: R94.31 Abnormal electrocardiogram [ECG] [EKG] (principal); Z79.899 Other long term (current) drug therapy | CPT/HCPCS: 93005 ==

== ENCOUNTER → 2024-02-08 23:59 | Outpatient (BNV) | payer OTHER, SELFPAY ==
--- NOTE | 2024-02-09 11:58 | A.OFFVIS_ITS ---
Intake Visit Reasons: Remote Device Check- [facility] Allergies acetaminophen [From Vicodin] Allergy (Unknown, Verified 10/17/23 13:30) Hives, Shortness of Breath, swelling, rash hydrocodone [From Vicodin] Allergy (Unknown, Verified 10/17/23 13:30) Hives, Shortness of Breath, swelling, rash levofloxacin [Levaquin] Allergy (Unknown, Verified 10/17/23 13:30) unknown morphine Allergy (Unknown, Verified 10/17/23 13:30) Itching/Hives, swelling,rash buprenorphine [From Butrans] Adverse Reaction (Severe, Verified 10/17/23 13:30) severe itching Seasonal / Environmental Allergy (Unknown, Uncoded 10/17/23 13:30) Unknown [facility] Medical History Lumbar spondylosis PTSD (post-traumatic stress disorder) Fibromyalgia Pain management Osteoarthritis Surgical History (Updated 01/13/24 @ 13:35 by Amira Mosquera RN) History of cholecystectomy History of cardiac pacemaker H/O colonoscopy History of bilateral breast reduction surgery History of hysterectomy History of gastric bypass History of left knee replacement Family History Father Colon cancer Mother Lung cancer Son No problems noted. Son No problems noted. Son No problems noted. Daughter No problems noted. Social History Household Members: None Housing: Apartment Do you presently have visiting nurse or other home services: No Alcohol intake: never Patient Tobacco Use Status: Current someday Tobacco user Tobacco use type: Cigarette Cigarette Packs Per Day: 0.75 Cigarettes Per Day: 3 Years Smoked: 50 +/- e-Cigarette/Vaping Use: Never Used Second Hand Smoke Exposure: Yes service: No Current occupational status: retired Cognitive needs: No Hearing needs: No Vision needs: Yes Office Procedures Cardiac Device Check Cardiac Device Check Details: Date of service- 02/08/2024 ; Battery life >5 years; normal lead parameters; AP 18%; 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 Overall normal device function. [id number] Cardiac Device Interrogation, pacemaker Procedure code (CPT) selection complete Assessment & Plan Assessment & Plan (1) Sick sinus syndrome: Code(s): I49.5 - Sick sinus syndrome Category: Medical (2) PAF (paroxysmal atrial fibrillation): Code(s): I48.0 - Paroxysmal atrial fibrillation Category: Medical Plan x Coding Level of Care Code Procedure Only Diagnoses Sick sinus syndrome I49.5 PAF (paroxysmal atrial fibrillation) I48.0 CPT Codes Cardiac Device Check - Cardiac Device 12: [id number] Cardiac Device Interrogation, pacemaker ([id number])
== END ==
PROVIDERS: PCP Internal Medicine; Visit Provider Internal Medicine
DX: I49.5 Sick sinus syndrome (principal); I48.0 Paroxysmal atrial fibrillation; Z95.0 Presence of cardiac pacemaker
CPT/HCPCS: 93294

== ENCOUNTER 2024-02-09 14:46 | Outpatient (AMB) | payer OTHER, SELFPAY ==
[2024-02-09 14:48] VITALS: BP 140/70; PULSE 94; BMI 22.9
--- NOTE | 2024-02-09 14:48 | MHC.OFFVIS ---
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 Accompanied by: Self / Same As Patient Allergies acetaminophen [From Vicodin] Allergy (Unknown, Verified 10/17/23 13:30) Hives, Shortness of Breath, swelling, rash hydrocodone [From Vicodin] Allergy (Unknown, Verified 10/17/23 13:30) Hives, Shortness of Breath, swelling, rash levofloxacin [Levaquin] Allergy (Unknown, Verified 10/17/23 13:30) unknown morphine Allergy (Unknown, Verified 10/17/23 13:30) Itching/Hives, swelling,rash buprenorphine [From Butrans] Adverse Reaction (Severe, Verified 10/17/23 13:30) severe itching Seasonal / Environmental Allergy (Unknown, Uncoded 10/17/23 13:30) Unknown Medication List - Last Reconciled 02/09/24 by Jalen Steele MD albuterol sulfate 90 mcg/actuation (ProAir HFA) 1 inh inhalation QID PRN 30 days alprazolam 0.5 mg (2 x 0.25 mg) PO DAILY PRN 1 day amiodarone 400 mg (2 x 200 mg) PO BID 2 weeks amiodarone 200 mg PO DAILY 90 days apixaban (Eliquis) 5 mg PO BID biotin 2,000 mcg PO DAILY cholecalciferol (vitamin D3) 50 mcg PO DAILY cyanocobalamin (vitamin B-12) 1,000 mcg PO Q OTHER DAY diltiazem HCl CD 360 mg PO DAILY loratadine (Allergy Relief (loratadine)) 10 mg PO DAILY PRN 90 days oiynxejnousy-boei-biiqd acid 18-400 mg-mcg (Spectravite Advanced Formula) 1 tab PO DAILY 90 days venlafaxine ER 37.5 mg PO BID venlafaxine ER 75 mg PO DAILY HPI Comments Details: Millie returns for follow-up. In 2021, she was given a Holter monitor for further evaluation of atrial fibrillation, but that showed frequent pauses as much as 8.9 seconds. Subsequently, underwent pacemaker placement. Few weeks back, she underwent cardioversion. She states that she felt better after she went back into sinus rhythm but after a couple of weeks again did not feel good. She can feel the palpitations. By EKG today as well as by remote pacemaker interrogation, it seems that she is back in atrial fibrillation. She is probably in sinus for a couple of weeks or so after the cardioversion. [facility] Medical History Lumbar spondylosis PTSD (post-traumatic stress disorder) Fibromyalgia Pain management Osteoarthritis Surgical History History of cholecystectomy History of cardiac pacemaker H/O colonoscopy History of bilateral breast reduction surgery History of hysterectomy History of gastric bypass History of left knee replacement Family History Father Colon cancer Mother Lung cancer Son No problems noted. Son No problems noted. Son No problems noted. Daughter No problems noted. Social History Household Members: None Housing: Apartment Do you presently have visiting nurse or other home services: No Alcohol intake: never Patient Tobacco Use Status: Current someday Tobacco user Tobacco use type: Cigarette Cigarette Packs Per Day: 0.75 Cigarettes Per Day: 3 Years Smoked: 50 +/- e-Cigarette/Vaping Use: Never Used Second Hand Smoke Exposure: Yes service: No Current occupational status: retired Cognitive needs: No Hearing needs: No Vision needs: Yes Review of Systems Const Denies chills, Denies fatigue, Denies fever(s), Denies frequent falls, Denies weakness, Denies weight gain and Denies weight loss ENT Denies dizziness Card Denies chest pain, Denies leg edema, Denies lightheadedness, Denies palpitations, Denies dyspnea and Denies dyspnea on exertion Resp Denies cough, Denies dyspnea and Denies dyspnea on exertion GI Denies hematochezia Musc Denies abnormal gait, Denies muscle weakness, Denies numbness, Denies radiating pain into limb and Denies tingling Neuro Denies abnormal gait, Denies dizziness, Denies frequent falls, Denies numbness, Denies tingling and Denies weakness Endo Denies fatigue and Denies palpitations Physical Exam Vital Signs: Last Vital Signs Pulse 94 02/09/24 14:48 BP 140/70 H 02/09/24 14:48 BMI result Body Mass Index 22.9 Const General: comfortable and no acute distress Orientation/consciousness: patient oriented x3 HEENT Other: Unremarkable Head: Yes normal to inspection Neck Neck: Yes normal visual inspection Chest Chest palpation & inspection: normal inspection of the chest Resp Auscultation: clear to auscultation bilaterally Cardio Palpation: normal PMI Heart sounds: S1 normal heart sound present, S2 normal heart sound present, no gallops, no murmurs and no rubs GI Palpation (GI): Soft to palpation Back/Spine/Pelvis Other: unremarkable Skin General skin exam: no rashes or lesions noted Neuro General: patient oriented x3 Extrem General: Yes normal to inspection Psych Mental Status: mental status grossly normal Office Procedures EKG Details: EKG with atrial fibrillation at a rate of 94/Min. [id number], Complete Assessment & Plan Assessment & Plan (1) PAF (paroxysmal atrial fibrillation): Code(s): I48.0 - Paroxysmal atrial fibrillation Category: Medical Plan: Recent cardioversion but it seems that she is back in atrial fibrillation. She felt better while sinus rhythm. She is continuing amiodarone. We can re-attempt cardioversion. Discussed and she is willing. We will schedule for next week. Continue anticoagulation. Otherwise, also on diltiazem. Previously, intolerance to beta-blockers. Cardiac testing- Echocardiogram with normal LVEF, moderate diastolic dysfunction, moderately dilated left atrium. Myocardial perfusion imaging without any clear ischemic findings. (2) Sick sinus syndrome: Code(s): I49.5 - Sick sinus syndrome Category: Medical Plan: Status post pacemaker. Functioning appropriately. (3) Hypertension, essential: Code(s): I10 - Essential (primary) hypertension Category: Medical Plan: Borderline blood pressure today. No changes for now. Coding Level of Care Code Est Pt Level 4 (26774) Diagnoses PAF (paroxysmal atrial fibrillation) I48.0 Sick sinus syndrome I49.5 Hypertension, essential I10 CPT Codes EKG - CPT: 40581-Rtafytwvvxkwfppxk, Complete ([id number])
== END 2024-02-09 15:12 | disposition home or self-care (01) ==
PROVIDERS: PCP Internal Medicine; Visit Provider Nurse Practitioner Family
DX: I48.0 Paroxysmal atrial fibrillation (principal); I49.5 Sick sinus syndrome; I10 Essential (primary) hypertension
CPT/HCPCS: 93010; 99214

== ENCOUNTER → 2024-02-09 14:46 | Outpatient (BNVA) | payer OTHER, SELFPAY | PROVIDERS: PCP Internal Medicine; Visit Provider Nurse Practitioner Family | DX: I48.0 Paroxysmal atrial fibrillation (principal); I49.5 Sick sinus syndrome; I10 Essential (primary) hypertension | CPT/HCPCS: 93005; 99212 ==

== ENCOUNTER → 2024-02-17 09:51 | Day surgery (SDC) | payer OTHER, SELFPAY ==
[2024-02-17 10:02] VITALS: BMI 23.3
--- NOTE | 2024-02-17 10:22 | ECG_ITS ---
Test Reason : sinus rhythm Blood Pressure : / mmHG Vent. Rate : 060 BPM Atrial Rate : 060 BPM P-R Int : 184 ms QRS Dur : 078 ms QT Int : 460 ms P-R-T Axes : 103 045 046 degrees QTc Int : 460 ms Atrial-paced rhythm Abnormal ECG When compared with ECG of 13-JAN-2024 14:31, T wave inversion no longer evident in Inferior leads Nonspecific T wave abnormality, improved in Anterolateral leads Referred By: Abby Almeida Electronically Signed By:ABBY ALMEIDA
--- NOTE | 2024-02-17 10:33 | PC.NURSE ---
patient in nsr. md malloy aware. ekg performed and sent home. to have office call for her follow up appt. called for ride to pickup patient.
== END ==
LOC: HO.SSS 09:52
PROVIDERS: PCP Internal Medicine; Visit Provider Internal Medicine
DX: I48.0 Paroxysmal atrial fibrillation (principal); Z53.8 Procedure and treatment not carried out for other reasons
CPT/HCPCS: 93005

== ENCOUNTER → 2024-02-17 10:22 | Outpatient (BNV) | payer OTHER, SELFPAY | PROVIDERS: PCP Internal Medicine; Visit Provider Internal Medicine | DX: I49.8 Other specified cardiac arrhythmias (principal); R94.31 Abnormal electrocardiogram [ECG] [EKG] | CPT/HCPCS: 93010 ==

== ENCOUNTER 2024-03-15 12:12 | Outpatient (AMB) | payer OTHER, SELFPAY ==
[2024-03-15 12:32] VITALS: BP 124/64; PULSE 91; BMI 23.2
--- NOTE | 2024-03-15 12:32 | MHC.OFFVIS ---
Vital Signs 03/15/24 12:32 Height 5 ft Weight 118 lb 9.739 oz BMI 23.2 BP 124/64 Blood Pressure Location Lt brachial Position Sitting Pulse 91 Intake Visit Reasons: 4 wk f/up [employer] Required: No Accompanied by: Self / Same As Patient Allergies acetaminophen [From Vicodin] Allergy (Unknown, Verified 10/17/23 13:30) Hives, Shortness of Breath, swelling, rash hydrocodone [From Vicodin] Allergy (Unknown, Verified 10/17/23 13:30) Hives, Shortness of Breath, swelling, rash levofloxacin [Levaquin] Allergy (Unknown, Verified 10/17/23 13:30) unknown morphine Allergy (Unknown, Verified 10/17/23 13:30) Itching/Hives, swelling,rash buprenorphine [From Butrans] Adverse Reaction (Severe, Verified 10/17/23 13:30) severe itching Seasonal / Environmental Allergy (Unknown, Uncoded 10/17/23 13:30) Unknown Medication List - Last Reconciled 03/15/24 by Jalen Steele MD albuterol sulfate 90 mcg/actuation (ProAir HFA) 1 inh inhalation QID PRN 30 days alprazolam 0.5 mg (2 x 0.25 mg) PO DAILY PRN 1 day amiodarone 200 mg PO DAILY 90 days apixaban (Eliquis) 5 mg PO BID biotin 2,000 mcg PO DAILY cholecalciferol (vitamin D3) 50 mcg PO DAILY cyanocobalamin (vitamin B-12) 1,000 mcg PO Q OTHER DAY dicyclomine 20 mg PO ONCE PRN 90 days diltiazem HCl CD 360 mg PO DAILY diphenhydramine-acetaminophen 25-500 mg (Tylenol PM Extra Strength) 1 tab PO BEDTIME PRN loratadine (Allergy Relief (loratadine)) 10 mg PO DAILY PRN 90 days duwfmdeelalo-ensq-drcjf acid 18-400 mg-mcg (Spectravite Advanced Formula) 1 tab PO DAILY 90 days venlafaxine ER 75 mg PO QPM venlafaxine ER 37.5 mg PO QAM HPI Comments Details: Millie returns for follow-up. In 2021, she was given a Holter monitor for evaluation of atrial fibrillation, but that showed frequent pauses as much as 8.9 seconds. Subsequently, underwent pacemaker placement. Few weeks back, she underwent cardioversion. She states that she felt better after she went back into sinus rhythm but after a couple of weeks again did not feel good. She can feel the palpitations. Then we EKG during last visit, she was back in atrial fibrillation. We scheduled her for another cardioversion after loading with amiodarone but when she came for the procedure, she was in sinus rhythm. However, it seems that she went back into atrial fibrillation again after that. Today, she is in atrial fibrillation by EKG. Some nonspecific symptoms like dizziness but I highly doubt if it is from the atrial fibrillation itself. Cannot rule out either. [facility] Medical History Lumbar spondylosis PTSD (post-traumatic stress disorder) Fibromyalgia Pain management Osteoarthritis Surgical History History of cholecystectomy History of cardiac pacemaker H/O colonoscopy History of bilateral breast reduction surgery History of hysterectomy History of gastric bypass History of left knee replacement Family History Father Colon cancer Mother Lung cancer Son No problems noted. Son No problems noted. Son No problems noted. Daughter No problems noted. Social History Household Members: None Housing: Apartment Do you presently have visiting nurse or other home services: No Alcohol intake: never Patient Tobacco Use Status: Never used Tobacco Tobacco use type: Cigarette Cigarette Packs Per Day: 0.75 Cigarettes Per Day: 3 Years Smoked: 50 +/- e-Cigarette/Vaping Use: Never Used Second Hand Smoke Exposure: Yes service: No Current occupational status: retired Cognitive needs: No Hearing needs: No Vision needs: Yes Review of Systems Const Denies chills, Denies fatigue, Denies fever(s), Denies weight gain and Denies weight loss ENT Denies dizziness Card Denies chest pain, Denies leg edema, Denies lightheadedness, Denies palpitations, Denies dyspnea on exertion, Denies orthopnea and Denies other Resp Denies cough and Denies dyspnea on exertion GI Denies hematochezia and Denies change in stool character Musc Denies abnormal gait, Denies muscle weakness, Denies numbness, Denies radiating pain into limb and Denies tingling Neuro Denies abnormal gait, Denies dizziness, Denies numbness and Denies tingling Endo Denies fatigue and Denies palpitations Physical Exam Vital Signs: Last Vital Signs Pulse 91 03/15/24 12:32 BP 124/64 03/15/24 12:32 BMI result Body Mass Index 23.2 Const General: comfortable and no acute distress Orientation/consciousness: patient oriented x3 HEENT Other: Unremarkable Head: Yes normal to inspection Neck Neck: Yes normal visual inspection Chest Chest palpation & inspection: normal inspection of the chest Resp Auscultation: clear to auscultation bilaterally Cardio Palpation: normal PMI Heart sounds: S1 normal heart sound present, S2 normal heart sound present, no gallops, no murmurs and no rubs GI Palpation (GI): Soft to palpation Back/Spine/Pelvis Other: unremarkable Skin General skin exam: no rashes or lesions noted Neuro General: patient oriented x3 Extrem General: Yes normal to inspection Psych Mental Status: mental status grossly normal Office Procedures EKG Details: EKG with atrial fibrillation at a rate of 91/Min. [id number], Complete Assessment & Plan Assessment & Plan (1) PAF (paroxysmal atrial fibrillation): Code(s): I48.0 - Paroxysmal atrial fibrillation Category: Medical Plan: Cardioversion December 2023. Then went back into atrial fibrillation, but Amiodarone loaded and brought back for another cardioversion- but she was already in sinus. Now she is back in atrial fibrillation. We discussed about referring for EP consultation/ablation but she would like to hold off on that for now. We can just add digoxin for rate control. She is already on diltiazem and in the past, intolerance to beta-blockers. Stop amiodarone. Check digoxin levels in a few weeks' time. Discussed about this. Cardiac testing- Echocardiogram with normal LVEF, moderate diastolic dysfunction, moderately dilated left atrium. Myocardial perfusion imaging without any clear ischemic findings. (2) Sick sinus syndrome: Code(s): I49.5 - Sick sinus syndrome Category: Medical Plan: Status post pacemaker. Functioning appropriately. (3) Hypertension, essential: Code(s): I10 - Essential (primary) hypertension Category: Medical Plan: Stable. Orders: Orders Digoxin 4 Weeks I48.0 - Paroxysmal atrial fibrillation Medications: New digoxin 125 mcg PO DAILY 90 tabs 1RF Discontinued amiodarone Take 400mg twice/day for 2 weeks followed by 200mg daily. Discontinued Reason: Doctor's Order 200 mg PO DAILY 90 days 90 tabs 3RF Coding Level of Care Code Est Pt Level 4 (81950) Diagnoses PAF (paroxysmal atrial fibrillation) I48.0 Sick sinus syndrome I49.5 Hypertension, essential I10 CPT Codes EKG - CPT: 90261-Jyonvfdwkjzbcchju, Complete ([id number])
== END 2024-03-15 12:55 | disposition home or self-care (01) ==
PROVIDERS: PCP Internal Medicine; Visit Provider Internal Medicine
DX: I48.0 Paroxysmal atrial fibrillation (principal); I49.5 Sick sinus syndrome; I10 Essential (primary) hypertension
CPT/HCPCS: 93010; 99214

== ENCOUNTER → 2024-03-15 12:12 | Outpatient (BNVA) | payer OTHER, SELFPAY | PROVIDERS: PCP Internal Medicine; Visit Provider Internal Medicine | DX: I48.0 Paroxysmal atrial fibrillation (principal); I49.5 Sick sinus syndrome; I10 Essential (primary) hypertension; Z95.0 Presence of cardiac pacemaker; Z98.890 Other specified postprocedural states | CPT/HCPCS: 93005; 99212 ==

== ENCOUNTER 2024-04-17 13:20 | Outpatient (AMB) | payer OTHER, SELFPAY ==
--- NOTE | 2024-04-17 13:41 | MHC.OFFVIS ---
Vital Signs 04/17/24 13:42 Height 5 ft Weight 114 lb 10.246 oz BMI 22.4 BP 138/60 Blood Pressure Location Lt brachial Position Sitting Pulse 60 Pulse Source Pulse Oximeter Intake Visit Reasons: 4 mth w/ st eder ck Allergies acetaminophen [From Vicodin] Allergy (Unknown, Verified 10/17/23 13:30) Hives, Shortness of Breath, swelling, rash hydrocodone [From Vicodin] Allergy (Unknown, Verified 10/17/23 13:30) Hives, Shortness of Breath, swelling, rash levofloxacin [Levaquin] Allergy (Unknown, Verified 10/17/23 13:30) unknown morphine Allergy (Unknown, Verified 10/17/23 13:30) Itching/Hives, swelling,rash buprenorphine [From Butrans] Adverse Reaction (Severe, Verified 10/17/23 13:30) severe itching Seasonal / Environmental Allergy (Unknown, Uncoded 10/17/23 13:30) Unknown Medication List - Last Reconciled 04/17/24 by Jalen Steele MD albuterol sulfate 90 mcg/actuation (ProAir HFA) 1 inh inhalation QID PRN 30 days alprazolam 0.5 mg (2 x 0.25 mg) PO DAILY PRN 1 day apixaban (Eliquis) 5 mg PO BID cholecalciferol (vitamin D3) 50 mcg PO DAILY cyanocobalamin (vitamin B-12) 1,000 mcg PO Q OTHER DAY dicyclomine 20 mg PO ONCE PRN 90 days digoxin 125 mcg PO DAILY diltiazem HCl CD 360 mg PO DAILY diphenhydramine-acetaminophen 25-500 mg (Tylenol PM Extra Strength) 1 tab PO BEDTIME PRN loratadine (Allergy Relief (loratadine)) 10 mg PO DAILY PRN 90 days ueadathulags-aepn-kplyr acid 18-400 mg-mcg (Spectravite Advanced Formula) 1 tab PO DAILY 90 days venlafaxine ER 75 mg PO QPM venlafaxine ER 37.5 mg PO QAM HPI Comments Details: Millie returns for follow-up. In 2021, she was given a Holter monitor for evaluation of atrial fibrillation, but that showed frequent pauses as much as 8.9 seconds. Subsequently, underwent pacemaker placement. Earlier this year, she was found to be in atrial fibrillation consistently and that led to cardioversion. However, she is back in atrial fibrillation during follow-up visits. Then started amiodarone and planned another cardioversion but she was already back in sinus rhythm. Overall, it seems that she is going back and forth atrial fibrillation. Still has palpitations and some nonspecific symptoms like feeling dizzy but not clear if that is related to the arrhythmia. Today, she is in sinus rhythm. [facility] Medical History Lumbar spondylosis PTSD (post-traumatic stress disorder) Fibromyalgia Pain management Osteoarthritis Surgical History History of cholecystectomy History of cardiac pacemaker H/O colonoscopy History of bilateral breast reduction surgery History of hysterectomy History of gastric bypass History of left knee replacement Family History Father Colon cancer Mother Lung cancer Son No problems noted. Son No problems noted. Son No problems noted. Daughter No problems noted. Social History Household Members: None Housing: Apartment Do you presently have visiting nurse or other home services: No Alcohol intake: never Patient Tobacco Use Status: Never used Tobacco Tobacco use type: Cigarette Cigarette Packs Per Day: 0.75 Cigarettes Per Day: 3 Years Smoked: 50 +/- e-Cigarette/Vaping Use: Never Used Second Hand Smoke Exposure: Yes service: No Current occupational status: retired Cognitive needs: No Hearing needs: No Vision needs: Yes Review of Systems Const Denies weakness ENT Denies dizziness Card Denies chest pain, Denies chest pain with activity, Denies syncope, Denies rapid heart rate, Denies pedal edema, Denies edema, Denies leg edema, Denies lightheadedness, Denies palpitations, Denies dyspnea, Denies dyspnea on exertion and Denies orthopnea Resp Denies cough, Denies dyspnea and Denies dyspnea on exertion GI Denies hematochezia and Denies change in stool character Musc Denies abnormal gait, Denies muscle cramps, Denies muscle weakness, Denies numbness, Denies radiating pain into limb and Denies tingling Neuro Denies abnormal gait, Denies dizziness, Denies syncope, Denies numbness, Denies tingling and Denies weakness Endo Denies palpitations Physical Exam Vital Signs: Last Vital Signs Pulse 60 04/17/24 13:42 BP 138/60 04/17/24 13:42 BMI result Body Mass Index 22.4 Const General: comfortable and no acute distress Orientation/consciousness: patient oriented x3 HEENT Other: Unremarkable Head: Yes normal to inspection Neck Neck: Yes normal visual inspection Chest Chest palpation & inspection: normal inspection of the chest Resp Auscultation: clear to auscultation bilaterally Cardio Palpation: normal PMI Heart sounds: S1 normal heart sound present, S2 normal heart sound present, no gallops, Murmur heart sound present systolic II/ and at the right sternal border and no rubs GI Palpation (GI): Soft to palpation Back/Spine/Pelvis Other: unremarkable Skin General skin exam: no rashes or lesions noted Neuro General: patient oriented x3 Extrem General: Yes normal to inspection Psych Mental Status: mental status grossly normal Office Procedures Cardiac Device Check Cardiac Device Check Details: Pacemaker interrogated today. Dual-chamber device, programmed DDD mode. Battery status more than 7 years. Normal lead parameters. Atrial pacing 61%. Ventricular pacing 2%. Numerous mode switch is and overall atrial fibrillation burden of 34% since 02/08/2024. Last atrial fibrillation episode on March 29. Overall, normal device function. [id number] Cardiac Device Check, pacemaker dual lead Procedure code (CPT) selection complete Assessment & Plan Assessment & Plan (1) PAF (paroxysmal atrial fibrillation): Code(s): I48.0 - Paroxysmal atrial fibrillation Category: Medical Plan: Cardioversion December 2023. Then went back into atrial fibrillation, but Amiodarone loaded and brought back for another cardioversion- but she was already in sinus. Based on pacemaker interrogation, she is back and forth atrial fibrillation with an overall burden of about 34%. Currently on meds including diltiazem and digoxin. Intolerant to beta-blockers. On Eliquis. We discussed about further plan as she is having a high burden of atrial fibrillation. Discussed about possibility for ablation and she is interested. Refer to EP. Cardiac testing- Echocardiogram 2021 with normal LVEF, moderate diastolic dysfunction, moderately dilated left atrium. We will repeat echocardiogram for left atrial size. Myocardial perfusion imaging 2021 without any clear ischemic findings. (2) Sick sinus syndrome: Code(s): I49.5 - Sick sinus syndrome Category: Medical Plan: Status post pacemaker. Functioning appropriately. (3) Hypertension, essential: Code(s): I10 - Essential (primary) hypertension Category: Medical Plan: Stable. Orders: Orders CA echo transthoracic complete Today I48.0 - Paroxysmal atrial fibrillation Referrals Cardiac Electrophysiology Referral I48.0 - Paroxysmal atrial fibrillation Coding Level of Care Code Est Pt Level 4 (05919) Diagnoses PAF (paroxysmal atrial fibrillation) I48.0 Sick sinus syndrome I49.5 Hypertension, essential I10 CPT Codes Cardiac Device Check - Cardiac Device 2: [id number] Cardiac Device Check, pacemaker dual lead ([id number])
[2024-04-17 13:42] VITALS: BP 138/60; PULSE 60; BMI 22.4
== END 2024-04-17 14:02 | disposition home or self-care (01) ==
LOC: HO.HCS 13:20
PROVIDERS: PCP Internal Medicine; Visit Provider Internal Medicine
DX: I48.0 Paroxysmal atrial fibrillation (principal); I49.5 Sick sinus syndrome; I10 Essential (primary) hypertension
CPT/HCPCS: 93280; 99214

== ENCOUNTER → 2024-04-17 13:20 | Outpatient (BNVA) | payer OTHER, SELFPAY | PROVIDERS: PCP Internal Medicine; Visit Provider Internal Medicine | DX: Z45.018 Encounter for adjustment and management of other part of cardiac pacemaker (principal); I48.0 Paroxysmal atrial fibrillation; I49.5 Sick sinus syndrome; I10 Essential (primary) hypertension | CPT/HCPCS: 93280; 99212 ==

== ENCOUNTER → 2024-05-09 23:59 | Outpatient (BNV) | payer OTHER, SELFPAY ==
--- NOTE | 2024-05-13 12:35 | MHC.OFFVIS ---
Intake Visit Reasons: Remote Device Check- [facility] Allergies acetaminophen [From Vicodin] Allergy (Unknown, Verified 10/17/23 13:30) Hives, Shortness of Breath, swelling, rash hydrocodone [From Vicodin] Allergy (Unknown, Verified 10/17/23 13:30) Hives, Shortness of Breath, swelling, rash levofloxacin [Levaquin] Allergy (Unknown, Verified 10/17/23 13:30) unknown morphine Allergy (Unknown, Verified 10/17/23 13:30) Itching/Hives, swelling,rash buprenorphine [From Butrans] Adverse Reaction (Severe, Verified 10/17/23 13:30) severe itching Seasonal / Environmental Allergy (Unknown, Uncoded 10/17/23 13:30) Unknown [facility] Medical History Lumbar spondylosis PTSD (post-traumatic stress disorder) Fibromyalgia Pain management Osteoarthritis Surgical History History of cholecystectomy History of cardiac pacemaker H/O colonoscopy History of bilateral breast reduction surgery History of hysterectomy History of gastric bypass History of left knee replacement Family History Father Colon cancer Mother Lung cancer Son No problems noted. Son No problems noted. Son No problems noted. Daughter No problems noted. Social History Household Members: None Housing: Apartment Do you presently have visiting nurse or other home services: No Alcohol intake: never Patient Tobacco Use Status: Never used Tobacco Tobacco use type: Cigarette Cigarette Packs Per Day: 0.75 Cigarettes Per Day: 3 Years Smoked: 50 +/- e-Cigarette/Vaping Use: Never Used Second Hand Smoke Exposure: Yes service: No Current occupational status: retired Cognitive needs: No Hearing needs: No Vision needs: Yes Office Procedures Cardiac Device Check Cardiac Device Check Details: Date of service- 05/09/2024 ; Battery life >7 years; normal lead parameters; AP >99%; 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 Overall normal device function. [id number] Cardiac Device Interrogation, pacemaker Procedure code (CPT) selection complete Assessment & Plan Assessment & Plan (1) PAF (paroxysmal atrial fibrillation): Code(s): I48.0 - Paroxysmal atrial fibrillation Category: Medical Plan x Coding Level of Care Code Procedure Only Diagnoses PAF (paroxysmal atrial fibrillation) I48.0 CPT Codes Cardiac Device Check - Cardiac Device 12: [id number] Cardiac Device Interrogation, pacemaker ([id number])
== END ==
PROVIDERS: PCP Internal Medicine; Visit Provider Internal Medicine
DX: I48.0 Paroxysmal atrial fibrillation (principal); Z95.0 Presence of cardiac pacemaker
CPT/HCPCS: 93294

== ENCOUNTER → 2024-06-13 10:53 | Outpatient (REF) | payer OTHER, SELFPAY ==
--- NOTE | 2024-06-13 10:55 | CA_ITS ---
Transthoracic Echocardiogram Patient (Last, First, Middle): Millie Mendez A Gender: Female Date of : 1945 Age: 78 Procedure Date: 06/13/2024 Procedure Type: Transthoracic Echocardiogram Location: OP Height: 152.4 cm Weight: 49.9 kg BSA: 1.45 m2 Heart Rate: bpm BP: 140 / 68 mmHg Infrastructure Analyst: NEHA Referring MD: Jalen Steele MD Symptoms: I48.0 - Paroxysmal atrial fibrillation Study Quality: Fair ECG Rhythm: Sinus Conclusions: - The left ventricular systolic function is normal. The calculated ejection fraction is 63% by biplane method. - The left atrium is severely dilated. - There is moderate calcification of the aortic valve. Early aortic stenosis. - There is mild mitral annular calcification. - There is mild to moderate tricuspid valve regurgitation. - Mild pulmonary hypertension is present. Findings Left Ventricle Normal left ventricular cavity size. There is normal left ventricular wall thickness. The left ventricular systolic function is normal. The calculated ejection fraction is 63% by biplane method. There is no evidence of regional wall motion abnormalities. Diastolic function is indeterminate on the basis of available data. Right Ventricle Normal right ventricular cavity size and systolic function. Atria The left atrium is severely dilated. The right atrium is moderately dilated. Aortic Valve There is moderate calcification of the aortic valve. There is no aortic valve regurgitation. Early aortic stenosis. Mitral Valve The mitral valve appears normal. There is mild mitral annular calcification. There is trace mitral valve regurgitation. There is no mitral valve stenosis. Tricuspid Valve There is mild to moderate tricuspid valve regurgitation. Mild pulmonary hypertension is present. Great Vessels The asc aorta is normal in size. Small plaque is seen in the sino tubular ridge. Venous The inferior vena cava is mildly dilated and collapses greater than 50% with inspiration. Pericardium/Pleural There is no evidence of pericardial effusion. Prior Study Comparison No significant change compared to prior study dated: 03/17/2022. Measurements 2D Linear Measurements IVSd: 0.96 0.6-0.9/0.6-1.0 cm LVIDd: 3.70 3.9-5.3/4.2-5.9 cm LVIDd Index: 2.55 2.4-3.2/2.2-3.1 cm/m2 LVIDs: 2.01 2.0-3.6 cm LVPWd: 0.94 0.7-1.1 cm LA Diam: 3.60 2.7-3.8/3.0-4.0 cm LAIDs Index: 2.48 1.5-2.3 cm/m2 LV Mass: 129.86 67-162/88-224 g LV Mass Index: 89.56 43-95/49-115 g/m2 LVOT Diam: 1.90 3.0+(-)1.3 cm 2D Systolic Function EF 4C: 61.40 >55% EF 2C: 66.10 >55% EF BiP: 62.70 >55% Mitral Valve MV Pk E: 0.94 MV PK A: 0.81 MV Decel Time: 200.00 E/A: 1.20 E'Lateral: 7.18 E'Medial: 6.85 E/E' Med: 13.70 E/E' Lat: 13.10 PHT: 59.00 MVA PHT: 3.73 Decel Tyrrell: 4.69 Aortic Valve AoV Pk Deacon: 1.80 AoV Mn Deacon: 1.40 AoV VTI: 0.45 AoV Pk Grad: 13.00 Aov Mn Grad: 8.00 KE[place]ON Cont.VTI: 1.57 LVOT LVOT Pk Deacon: 1.16 LVOT Mn Deacon: 0.74 LVOT VTI: 0.25 LVOT Pk Grad: 5.00 LVOT Mn Grad: 2.00 LVOT Diam: 1.90 LVOT Area: 2.84 Diastolic Function MV Pk E: 0.94 MV Pk A: 0.81 E/A: 1.20 E'Medial: 6.85 E/E' Med: 13.70 E' Laterial: 7.18 E/E' Lat: 13.10 Right Ventricle TAPSE (mm): 29.40 TVS' Deacon: 15.50 Tricuspid Valve TR Pk Deacon: 3.01 TR Pk Grad: 36.00 RA Press: 8.00 RVSP: 44.00 Great Vessels Aorta Sinus of Valsalva: 3.19 2.0-3.[address] [place]: 2.68 1.7-3.4 cm Ao Asc: 2.50 2.1-3.4 cm Updated in Other Vendor System with Status of Final Jalen Steele MD electronically signed on 06/15/2024 7:00:20 PM with status of Final
== END ==
LOC: HO.CARD 10:53
PROVIDERS: PCP Internal Medicine; Visit Provider Internal Medicine
DX: I48.0 Paroxysmal atrial fibrillation (principal)
CPT/HCPCS: 93306

== ENCOUNTER → 2024-06-13 10:55 | Outpatient (BNV) | payer OTHER, SELFPAY | PROVIDERS: PCP Internal Medicine; Visit Provider Internal Medicine | DX: I35.0 Nonrheumatic aortic (valve) stenosis (principal); I35.8 Other nonrheumatic aortic valve disorders; I34.81 Nonrheumatic mitral (valve) annulus calcification; I36.1 Nonrheumatic tricuspid (valve) insufficiency | CPT/HCPCS: 93306 ==

== ENCOUNTER → 2024-08-08 23:59 | Outpatient (BNV) | payer OTHER, SELFPAY ==
--- NOTE | 2024-08-18 12:32 | MHC.OFFVIS ---
Intake Visit Reasons: Remote Device Check- [facility] Allergies acetaminophen [From Vicodin] Allergy (Unknown, Verified 10/17/23 13:30) Hives, Shortness of Breath, swelling, rash hydrocodone [From Vicodin] Allergy (Unknown, Verified 10/17/23 13:30) Hives, Shortness of Breath, swelling, rash levofloxacin [Levaquin] Allergy (Unknown, Verified 10/17/23 13:30) unknown morphine Allergy (Unknown, Verified 10/17/23 13:30) Itching/Hives, swelling,rash buprenorphine [From Butrans] Adverse Reaction (Severe, Verified 10/17/23 13:30) severe itching Seasonal / Environmental Allergy (Unknown, Uncoded 10/17/23 13:30) Unknown [facility] Medical History Lumbar spondylosis PTSD (post-traumatic stress disorder) Fibromyalgia Pain management Osteoarthritis Surgical History History of cholecystectomy History of cardiac pacemaker H/O colonoscopy History of bilateral breast reduction surgery History of hysterectomy History of gastric bypass History of left knee replacement Family History Father Colon cancer Mother Lung cancer Son No problems noted. Son No problems noted. Son No problems noted. Daughter No problems noted. Social History Household Members: None Housing: Apartment Do you presently have visiting nurse or other home services: No Alcohol intake: never Patient Tobacco Use Status: Never used Tobacco Tobacco use type: Cigarette Cigarette Packs Per Day: 0.75 Cigarettes Per Day: 3 Years Smoked: 50 +/- e-Cigarette/Vaping Use: Never Used Second Hand Smoke Exposure: Yes service: No Current occupational status: retired Cognitive needs: No Hearing needs: No Vision needs: Yes Office Procedures Cardiac Device Check Cardiac Device Check Details: Date of service- 08/08/2024 ; Battery life >7 years; normal lead parameters; AP <1%; 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 Some rapid rates, but not recurrent or prolonged. Overall normal device function. [id number] Cardiac Device Interrogation, pacemaker Procedure code (CPT) selection complete Assessment & Plan Assessment & Plan (1) Pacemaker: Onset Date: ~01/2022 Comment: ([facility] DCPP - placed 02/05/22) Code(s): Z95.0 - Presence of cardiac pacemaker Category: Medical (2) Sick sinus syndrome: Code(s): I49.5 - Sick sinus syndrome Category: Medical (3) PAF (paroxysmal atrial fibrillation): Code(s): I48.0 - Paroxysmal atrial fibrillation Category: Medical Plan x Coding Level of Care Code Procedure Only Diagnoses Pacemaker Z95.0 Sick sinus syndrome I49.5 PAF (paroxysmal atrial fibrillation) I48.0 CPT Codes Cardiac Device Check - Cardiac Device 12: [id number] Cardiac Device Interrogation, pacemaker ([id number])
== END ==
PROVIDERS: PCP Internal Medicine; Visit Provider Internal Medicine
DX: I49.5 Sick sinus syndrome (principal); I48.0 Paroxysmal atrial fibrillation; Z95.0 Presence of cardiac pacemaker
CPT/HCPCS: 93294

== ENCOUNTER 2024-09-12 12:54 | Outpatient (REF) | payer OTHER, SELFPAY ==
--- OUTSIDE RECORDS SUMMARY | 2024-09-12 15:01 | XMS_ITS | Clinical Summary ---
Author Organization [address] [place] [address] [place] [phone] Phone Care Team Providers Care Tire Regrooving Machine Operator Name Role Phone Leatha Al MD Primary Care Provider [phone] Allergies Active Allergy Reactions Criticality Noted Date Comments Levofloxacin 09/11/2024 Morphine 09/11/2024 Hydrocodone-Acetaminophen 09/11/2024 Medications Medication Sig Dispensed Refills Start Date End Date Status ALPRAZolam (XANAX) 0.25 mg tablet Take 1 tablet (0.25 mg total) by mouth 1 (one) time each day if needed for anxiety. Max Daily Amount: 0.25 mg Active dicyclomine (BENTYL) 20 mg tablet Take 1 tablet (20 mg total) by mouth 1 (one) time each day if needed. Active digoxin (LANOXIN) 125 mcg (0.125 mg) tablet Take 1 tablet (125 mcg total) by mouth 1 (one) time each day. Active dilTIAZem CD (CARDIZEM CD) 360 mg 24 hr capsule Take 1 capsule (360 mg total) by mouth 1 (one) time each day. Active apixaban (ELIQUIS) 5 mg tablet Take 1 tablet (5 mg total) by mouth 2 (two) times a day. Active venlafaxine (EFFEXOR) 37.5 mg tablet Take 1 tablet (37.5 mg total) by mouth 1 (one) time each day in the morning. Active venlafaxine (EFFEXOR) 75 mg tablet Take 1 tablet (75 mg total) by mouth at bedtime. Active Vitamin-B complex split tablet Take 1 tablet by mouth 1 (one) time each day. Active cholecalciferol (VITAMIN D-3) 10 mcg (400 unit) tablet Take 1 tablet (400 Units total) by mouth 1 (one) time each day. Active clopidogreL (PLAVIX) 75 mg tablet Take 1 tablet (75 mg total) by mouth 1 (one) time each day. Active aspirin 81 mg EC tablet Take 1 tablet (81 mg total) by mouth 1 (one) time each day. Active Active Problems Problem Noted Date Diagnosed Date PAF (paroxysmal atrial fibrillation) 09/10/2024 Encounters Date Type Department Care Team Description 09/11/2024 3:25 PM EST Office Visit [facility] [address] [facility] [address] [place] [address] Sandra Brewster MD PAF (paroxysmal atrial fibrillation) (CMS/HCC) (Primary Dx); SSS (sick sinus syndrome) ([facility]); Pacemaker from Last 3 Months Surgical History Surgery Date Site/Laterality Comments INSERT / REPLACE / REMOVE PACEMAKER Social History Tobacco Use Types Packs/Day Years Used Date Smoking Tobacco: Some Days Cigarettes Smokeless Tobacco: Never Tobacco Cessation:Ready to Q uit: Not Asked; Counseling Given: Not Answered Alcohol Use Standard Drinks/Week Comments Never 0 (1 standard drink = 0.6 oz pur e alcohol) Sex and Gender Information Value Date Recorded Sex Assigned at Not on file Gender Identity Not on file Sexual Orientation Not on file Job Start Date Occupation Industry Not on file Not on file Not on file Obstetrics History Last Filed Vital Signs Vital Sign Reading Time Taken Comments Blood Pressure 160/68 09/11/2024 3:50 PM EST Pulse 61 09/11/2024 3:50 PM EST Temperature - - Respiratory Rate - - Oxygen Saturation 98% 09/11/2024 3:50 PM EST Inhaled Oxygen Concentration - - Weight 53.1 kg (117 lb) 09/11/2024 3:50 PM EST Height 152.4 cm (5') 09/11/2024 3:50 PM EST Body Mass Index 22.85 09/11/2024 3:50 PM EST Plan of Treatment Health Maintenance Due Date Last Done Comments Zoster Vaccines (2 of 3) 11/16/2013 09/21/2013 Pneumococcal Vaccine: 65+ Years (2 of 2 - PPSV23 or PCV20) 05/27/2017 04/01/2017 RSV Immunization Patients 60 + Years Old (1 - 1-dose 75+ series) 2021 Cholesterol Screening (Lipid Panel) 07/13/2022 Depression Screening 07/13/2022 Falls Risk Assessment 07/13/2022 Hepatitis C Screening 07/13/2022 Medicare Annual Wellness Visit 07/13/2022 Osteoporosis Screening (Bone Density Screening) 07/13/2022 Social Influencers of Health Screening 07/13/2022 COVID-19 Vaccine (1 - 2023-2 5 season) 2024 Influenza Vaccine (#1) 2024 9, 04/10/2017, 08/17/2016 DTaP,Tdap,and Td Vaccines (2 - Td or Tdap) 11/18/2027 11/17/2017 HIB Vaccines Aged Out No longer eligi ble based on patient's age to complete this topic HPV Vaccines Aged Out No longer eligi ble based on patient's age to complete this topic Hepatitis A Vaccines Aged Out No long er eligible based on patient's age to complete this topic Hepatitis B Vaccines Aged Out No long er eligible based on patient's age to complete this topic IPV Vaccines Aged Out No longer eligi ble based on patient's age to complete this topic MMR Vaccines Aged Out No longer eligi ble based on patient's age to complete this topic Meningococcal ACWY Vaccine Aged Out N o longer eligible based on patient's age to complete this topic RSV Immunization Patients Under 20 months Aged Out No longer eligible b ased on patient's age to complete this topic Varicella Vaccines Aged Out No longer eligible based on patient's age to complete this topic Procedures Procedure Name Priority Date/Time Associated Diagnosis Comments ECG 12-LEAD Routine 09/11/2024 3:56 PM EST PAF (paroxysmal atrial fibrillation) ([facility]) SSS (sick sinus syndrome) ([facility]) Pacemaker from Last 3 Months Care Teams Tire Regrooving Machine Operator Relationship Specialty Start Date End Date Leatha Al MD [address] [place] [id number] PCP - General 06/21/13
--- OUTSIDE RECORDS SUMMARY | 2024-09-12 15:01 | XMS_ITS ---
Author Organization [facility] Address [address] [place] [phone] Care Team Providers Care [place] Operator Name Role Phone Servando ANDREW, Asma Primary Care Provider Wilver Tolentino [phone] REASON FOR VISIT Patient presents today for a colon screening Encounters Encounter Location Date Provider Diagnosis [facility] [address] [place] [phone] 11/08/2023 Wilver Nguyen PLAN OF TREATMENT No Information
--- OUTSIDE RECORDS SUMMARY | 2024-09-12 15:01 | XMS_ITS ---
Author Organization [facility] Address [address] [place] [address] Care Team Providers Care Well Driller Name Role Phone Servando ANDREW, Asma Primary Care Provider Wilver Tolentino [phone] REASON FOR VISIT patient cancelled appt Encounters Encounter Location Date Provider Diagnosis [facility] [address] [place] [address] 03/06/2024 Wilver Nguyen PLAN OF TREATMENT No Information
--- OUTSIDE RECORDS SUMMARY | 2024-09-12 15:01 | XMS_ITS | Patient Health Record ---
Author Organization [facility] Address [address] [place] [phone] Care Team Providers Care Outside Salesperson Name Role Phone Servando ANDREW, Asma Primary Care Provider Wilver Tolentino [phone] REASON FOR REFERRAL No Information SOCIAL HISTORY Sex Assigned At : Social History Observation Description Sex Assigned At Unknown Encounters Encounter Location Date Provider Diagnosis [facility] [address] [place] [phone] 11/08/2023 Wilver Nguyen [facility] [address] [place] [phone] 03/07/2024 Wilver Nguyen [facility] [address] [place] [phone] 11/08/2023 Wilver Nguyen [facility] [address] [place] [phone] 03/06/2024 Wilver Nguyen PLAN OF TREATMENT No Information Insurance Providers Payer Name Payer Address Payer Phone Subscriber Number Group Number Insured Name Patient Relationship to Insured Coverage Start Date Coverage End Date [facility] [id number] [place] [address] [id number] ALICIA PARRY Self - patient is the insured
--- OUTSIDE RECORDS SUMMARY | 2024-09-12 15:01 | XMS_ITS | Clinical Summary ---
Author Organization [facility] [employer] Address [address] [place] [address] Care Team Providers Care Welding Machine Feeder Name Role Phone Unavailable Primary Care Provider Unavailabl e Allergies Active Allergy Reactions Criticality Noted Date Comments Levofloxacin 05/06/2023 Morphine Itching 12/28/2022 Medications Eliquis 5 MG tablet Take 5 mg by mouth 2 times daily. 2 Active ALPRAZolam (Xanax) 0.25 MG tablet Take 0.25 mg by mouth if needed at bedtime. 2 Active cyanocobalamin (Vitamin B-12) 1000 MCG tablet TAKE 1 TABLET (1000 MCG) BY MOUTH EVERY OTHER DAY 2 Active amoxicillin (Amoxil) 500 MG capsule Take 4 capsules either one hour before the dental appointment or within 2 hours after the start of the dental appointment. 12 capsule 3 Active amoxicillin (Amoxil) 500 MG capsule Take 4 capsules one hour before the dental appointment. 16 capsule 3 Active Social History Tobacco Use Types Packs/Day Years Used Date Smoking Tobacco: Some Days Cigarettes Passive Smoke Exposure: Never Smokeless Tobacco: Never Tobacco Cessation:Ready to Q uit: Not Asked; Counseling Given: Not Answered Alcohol Use Standard Drinks/Week Comments Defer 0 (1 standard drink = 0.6 oz pur e alcohol) Comments Unknown Sex and Gender Information Value Date Recorded Sex Assigned at Female 06/14/2022 10:32 AM EDT Legal Sex Female 10:32 AM EDT Gender Identity Female 12/22/2022 2:24 PM EDT Sexual Orientation Straight 10/03/2023 8: 52 AM EST Last Filed Vital Signs Vital Sign Reading Time Taken Comments Blood Pressure 150/68 05/06/2023 1:01 PM EDT Pulse - - Temperature - - Respiratory Rate - - Oxygen Saturation - - Inhaled Oxygen Concentration - - Weight - - Height - - Body Mass Index - - Plan of Treatment Health Maintenance Due Date Last Done Comments Depression Screening 1945 Lipid Panel 1945 SDOH Screening 1945 Alcohol/Substance Use Screening 1958 Hepatitis C Screening 1964 Zoster Vaccines (2 of 3) 11/16/2013 09/21/2013 Pneumococcal Vaccine: 50+ Years (2 of 2 - PPSV23 or PCV20) 05/27/2017 04/01/2017 RSV Patients and Patients Aged 60 years or older (1 - 1-dose 75+ series) 2021 Dental Oral Exam 11/01/2023 05/02/2023 Dental Prophylaxis 11/05/2023 05/06/2023 COVID-19 Vaccine ( - 2023-2 5 season) 2024 Influenza Vaccine (#1) 2024 9, 04/10/2017, 08/17/2016 Dental X-Ray: Bitewings 05/03/2024 05/02/2023 Tobacco Screening 01/05/2025 01/06/2024 Dental X-Ray: Full Mouth 05/03/2026 05/02/2023 DTaP/Tdap/Td Vaccines (2 - T d or Tdap) 11/18/2027 11/17/2017 HIB Vaccines Aged [...] patient's age to complete this topic Meningococcal Vaccine Aged Out No sravan naima eligible based on patient's age to complete this topic RSV under 20 months Aged Out No longe r eligible based on patient's age to complete this topic Rotavirus Vaccines Aged Out No longer eligible based on patient's age to complete this topic Procedures Procedure Name Priority Date/Time Associated Diagnosis Comments PROPHYLAXIS - ADULT Routine 05/06/2023 1 :00 PM EDT DIAGNOSTIC - DIAGNOSTIC IMAGING - INTRAORAL - COMPREHENSIVE SERIES OF RADIOGRAPHIC IMAGES Routine 05/02/2023 1:00 PM EDT COMPREHENSIVE ORAL EVALUATION - NEW OR ESTABLISHED PATIENT Routine 05/02/2023 1:00 PM EDT from Last 3 Months or Most Recently Relevant to Health Maintenance [facility] AMAURI Hernandez13 DENTAL - [facility]
--- OUTSIDE RECORDS SUMMARY | 2024-09-12 15:01 | XMS_ITS ---
Author Organization [facility] Address [address] [place] [address] Care Team Providers Care Fast Food Attendant Name Role Phone Servando ANDREW, Asma Primary Care Provider Wilver Tolentino [phone] REASON FOR VISIT Patient presents today for a screening colonoscopy Encounters Encounter Location Date Provider Diagnosis [facility] [address] [place] [id number] 03/07/2024 Wilver Nguyen PLAN OF TREATMENT No Information
--- OUTSIDE RECORDS SUMMARY | 2024-09-12 15:01 | XMS_ITS | Encounter Summary ---
Author Organization [facility] Address [address] [place] [id number] Care Team Providers Care Bottle Packer Name Role Phone Leatha Al MD Primary Care Provider [phone] Reason for Visit * Reason Comments Follow-up Encounter Details Date Type Department Care Team (Late st Contact Info) Description 09/11/2024 3:25 PM EST Office Visit [facility] [facility] [address] [place] [id number] Sandra Brewster MD [address] [place] [address] PAF (paroxysmal atrial fibrillation) (CMS/HCC) (Primary Dx); SSS (sick sinus syndrome) (CMS/HCC); Pacemaker Social History Tobacco Use Types Packs/Day Years [...] file Not on file Not on file documented as of this encounter Last Filed Vital Signs Vital Sign Reading [...] Mass Index 22.85 09/11/2024 3:50 PM EST documented in this encounter Plan of Treatment Pending Results Name Type Priority Associated Diagnoses Date /Time ECG 12 lead ECG Routine PAF (paroxysmal atrial fibrillation) ([facility]/HCC) SSS (sick sinus syndrome) ([facility]) Pacemaker 09/11/2024 3:56 PM EST documented as of this encounter Procedures Procedure Name Priority Date/Time Associated Diagnosis Comments ECG 12-LEAD Routine 09/11/2024 3:56 PM EST PAF (paroxysmal atrial fibrillation) ([facility]/HCC) SSS (sick sinus syndrome) ([facility]) Pacemaker documented in this encounter Visit Diagnoses Diagnosis PAF (paroxysmal atrial fibrillation) ([facility]/HCC)- Primary Atrial fibrillation SSS (sick sinus syndrome) ([facility]) Sinoatrial node dysfunction Pacemaker Cardiac pacemaker in situ documented in this encounter Historical Medications * This list may reflect changes made after this encounter. Medication Sig Dispensed Refills Start Date End Date aspirin 81 mg EC tablet Take 1 tablet (81 mg total) by mouth 1 (one) time each day. clopidogreL (PLAVIX) 75 mg tablet Take 1 tablet (75 mg total) by mouth 1 (one) time each day. cholecalciferol (VITAMIN D-3) 10 mcg (400 unit) tablet Take 1 tablet (400 Units total) by mouth 1 (one) time each day. Vitamin-B complex split tablet Take 1 tablet by mouth 1 (one) time each day. venlafaxine (EFFEXOR) 75 mg tablet Take 1 tablet (75 mg total) by mouth at bedtime. venlafaxine (EFFEXOR) 37.5 mg tablet Take 1 tablet (37.5 mg total) by mouth 1 (one) time each day in the morning. apixaban (ELIQUIS) 5 mg tablet Take 1 tablet (5 mg total) by mouth 2 (two) times a day. dilTIAZem CD (CARDIZEM CD) 360 mg 24 hr capsule Take 1 capsule (360 mg total) by mouth 1 (one) time each day. digoxin (LANOXIN) 125 mcg (0.125 mg) tablet Take 1 tablet (125 mcg total) by mouth 1 (one) time each day. dicyclomine (BENTYL) 20 mg tablet Take 1 tablet (20 mg total) by mouth 1 (one) time each day if needed. ALPRAZolam (XANAX) 0.25 mg tablet Take 1 tablet (0.25 mg total) by mouth 1 (one) time each day if needed for anxiety. Max Daily Amount: 0.25 mg added in this encounter Care Teams Bottle Packer Relationship Specialty Start Date End Date Leatha Al MD [address] [place] [address] PCP - General 06/21/13 documented as of this encounter
[2024-09-12 16:32] LABS: MANUAL DIFF FLAG NO
[2024-09-12 16:45] LABS: Basophils Absolute Auto 0.1 X10*3/uL (0.0-0.2); Basophils Percent Auto 1.3 % (0-2); Eosinophils Absolute Auto 0.2 X10*3/uL (0.0-0.4); Eosinophils Percent Auto 3.7 % (0-4); Hematocrit 38.2 % (37.0-47.0); Hemoglobin 12.6 g/dl (12.0-16.0); Imm Gran Abs Auto 0.02 X10*3/uL (0.00-0.03); Imm Gran Pct Auto 0.3 % (0.0-0.4); Lymphocytes Absolute Auto 1.2 X10*3/uL (1.2-4.9); Lymphocytes Percent Auto 20.2 % (20-40); Mean Platelet Volume 12.2 fL (9.4-12.3); Monocytes Absolute Auto 0.5 X10*3/uL (0.1-1.2); Monocytes Percent Auto 8.5 % (2-11); Platelet Count 228 X10*3/uL (160-400); Red Cell Distribution Width 12.9 % (11.0-16.0)
[2024-09-12 17:02] LABS: Alanine Aminotransferase 10 U/L (0-31); Albumin Level 4.4 g/dL (3.5-5.0); Alkaline Phosphatase 84 U/L (39-117); Anion Gap 10 (12-20); Aspartate Amino Transferase 26 U/L (5-31); Bilirubin Total 0.5 mg/dL (0.0-1.0); Blood Urea Nitrogen 20 mg/dL (9-16); Calcium 8.8 mg/dL (8.4-10.2); Carbon Dioxide 25 mmol/L (22-29); Chloride 106 mmol/L (96-108); Estimated Glomerular Filt Rate > 60; Glucose Random 87 mg/dL (60-115); Potassium 4.3 mmol/L (3.3-5.1); Sodium 137 mmol/L (135-145); Total Protein 7.4 g/dL (6.5-8.0)
[2024-09-12 17:26] LABS: Vitamin B12 631 pg/mL (200-900)
[2024-09-17 01:33] LABS: Vitamin D 25-OH, D2 <4 ng/mL; Vitamin D 25-OH, D3 45 ng/mL; Vitamin D 25-OH, Total 45 ng/mL (30-100)
== END 2024-09-12 12:55 | disposition home or self-care (01) ==
LOC: HO.HMGCLDS 12:54
PROVIDERS: PCP Internal Medicine; Visit Provider Internal Medicine
DX: K58.0 Irritable bowel syndrome with diarrhea (principal); F33.41 Major depressive disorder, recurrent, in partial remission; F41.1 Generalized anxiety disorder; I10 Essential (primary) hypertension; I48.0 Paroxysmal atrial fibrillation; Z79.01 Long term (current) use of anticoagulants; Z79.899 Other long term (current) drug therapy; Z95.0 Presence of cardiac pacemaker; Z91.09 Other allergy status, other than to drugs and biological substances; E55.9 Vitamin D deficiency, unspecified; E53.8 Deficiency of other specified B group vitamins; M81.0 Age-related osteoporosis without current pathological fracture
CPT/HCPCS: 36415; 80053; 82306; 82607; 85025; 96127; 99212

== ENCOUNTER 2024-09-12 13:13 | Outpatient (AMB) | payer OTHER, SELFPAY ==
[2024-09-12 13:34] VITALS: BP 138/62; PULSE 61; O2SAT 97; BMI 23.1
--- NOTE | 2024-09-12 13:34 | MHC.PC.OV ---
Vital Signs 09/12/24 13:34 Height 5 ft Weight 118 lb 6 oz BMI 23.1 BP 138/62 Blood Pressure Location Lt brachial Position Sitting Pulse 61 Pulse Source Pulse Oximeter Pulse Oximetry (%) 97 Oxygen Delivery Method Room Air Intake Visit Reasons: med review Allergies acetaminophen [From Vicodin] Allergy (Unknown, Verified 09/12/24 13:38) Hives, Shortness of Breath, swelling, rash hydrocodone [From Vicodin] Allergy (Unknown, Verified 09/12/24 13:38) Hives, Shortness of Breath, swelling, rash levofloxacin [Levaquin] Allergy (Unknown, Verified 09/12/24 13:38) unknown morphine Allergy (Unknown, Verified 09/12/24 13:38) Itching/Hives, swelling,rash buprenorphine [From Butrans] Adverse Reaction (Severe, Verified 09/12/24 13:38) severe itching Seasonal / Environmental Allergy (Unknown, Uncoded 10/17/23 13:30) Unknown Medication List - Last Reconciled 09/12/24 by Leatha Al MD albuterol sulfate 90 mcg/actuation (ProAir HFA) 1 inh inhalation QID PRN 30 days alprazolam 0.5 mg (2 x 0.25 mg) PO DAILY PRN 1 day apixaban (Eliquis) 5 mg PO BID cholecalciferol (vitamin D3) 50 mcg PO DAILY cyanocobalamin (vitamin B-12) 1,000 mcg PO Q OTHER DAY dicyclomine 20 mg PO ONCE PRN 30 days digoxin 125 mcg PO DAILY diltiazem HCl CD 360 mg PO DAILY diphenhydramine-acetaminophen 25-500 mg (Tylenol PM Extra Strength) 1 tab PO BEDTIME PRN loratadine (Allergy Relief (loratadine)) 10 mg PO DAILY PRN 90 days rtfsutkwfmbl-plne-fslun acid 18-400 mg-mcg (Spectravite Advanced Formula) 1 tab PO DAILY 90 days venlafaxine ER 75 mg PO QPM venlafaxine ER 37.5 mg PO QAM Tobacco use date assessed: 09/12/24 Fall risk assessment: No Falls in past year Last assessed Fall Risk: 09/12/24 Dental Screening Dental Screen Date: 09/12/24 Did you have a dental visit in the last 12 months?: Yes Did you have a dental problem in the last 6 months where you did not have access to dental care?: No Was dental information given to patient?: Patient has dentist HPI med review HPI Details - The patient is a 78-year-old female with a history of atrial fibrillation , anxiety, depression, IBS, allergies Came in for follow-up appointment last visit was May of 2023 Only medication patient is taking is dicyclomine and allergy medication through this office She is established with psychiatrist and distributor advertising material for her other medications - Recent evaluation by Dr. Brewster for potential coronary artery catheterization considered due to episodes of dizziness and irregular heartbeats. Followed by cardiac ablation - Continuous monitoring with [employer] home device showing intermittent atrial fibrillation. - has appointment coming with Dr. Steele in September - Adherence to medication regime noted, including use of Eliquis, due to atrial fibrillation. - IBS stable with dicyclomine up to 2 times a day refills sent for the whole year - allergies stable with Claritin as needed - psychiatric medications as per Psychiatry Medications - Eliquis, 5 mg BID for atrial fibrillation. - Alprazolam, 0.25 mg as needed for anxiety. - Venlafaxine, 75 mg at night and 37.5 mg in the morning for depression. - Diltiazem, 360 mg for hypertension. - Digoxin, 0.125 mg for atrial fibrillation. - Vitamin D3 supplement. - Dicyclomine as needed for irritable bowel syndrome. - Claritin, as needed for allergies. - Tylenol PM, used at night for sleep assistance. Problem List - Atrial Fibrillation - Vitamin B12 Elevation checked in 2022, recent report not available yet - Hypertension - Depression/anxiety - Irritable Bowel Syndrome - Dizziness Diagnostic results - Electrocardiogram (EKG): Reported as stable. - Home monitoring device ([place]): Shows intermittent atrial fibrillation. [facility] of Care - Dr. Brewster (consultation for cardiac procedures) - Dr. Steele (distributor advertising material for follow-up appointment) - psychiatry Patient Instructions - Continue all prescribed medications and refills as needed. - Consider the scheduled coronary artery catheterization to evaluate heart vessel patency. - Observe and report any increased dizziness or changes in heart rhythm. - Use Claritin and Dicyclomine as needed for allergies and irritable bowel syndrome respectively. - Attend the follow-up with Dr. Steele on September 25. Review of Systems - Cardiovascular: Reports sensation of irregular heartbeat and episodes of dizziness. - Gastrointestinal: Denies constipation or diarrhea. - Neurological: Denies lightheadedness except during episodes of dizziness. - Respiratory: Denies shortness of breath. General: No fever no chills ear nose throat: No sore throat no hearing difficulty no ear pain endocrine: No polyuria polydipsia no heat intolerance genitourinary: No dysuria skin: No new complaints Physical Exam general: No acute distress HEENT: No acute findings neck: Supple respiratory system: Able to talk in full sentences, no audible wheeze no stridor cardiovascular: S1-S2, patient experiences dizziness and lightheadedness, in and out of AFib gastrointestinal: No pain, patient experiences stomach discomfort if not taking dicyclomine extremities: No new findings STUDENT LIFE COORDINATOR: Alert awake oriented x3 motor sensory intact skin: Normal turgor, patient reports a sore from frequent nose blowing [facility] Medical History Lumbar spondylosis PTSD (post-traumatic stress disorder) Fibromyalgia Pain management Osteoarthritis Surgical History History of cholecystectomy History of cardiac pacemaker H/O colonoscopy History of bilateral breast reduction surgery History of hysterectomy History of gastric bypass History of left knee replacement Family History Father Colon cancer Mother Lung cancer Son No problems noted. Son No problems noted. Son No problems noted. Daughter No problems noted. Social History Household Members: None Housing: Apartment Do you presently have visiting nurse or other home services: No Alcohol intake: never Patient Tobacco Use Status: Never used Tobacco Tobacco use type: Cigarette Cigarette Packs Per Day: 0.75 Cigarettes Per Day: 3 Years Smoked: 50 +/- Packs Per Year: 0 Packs per year/per ci.00 e-Cigarette/Vaping Use: Never Used Second Hand Smoke Exposure: Yes service: No Current occupational status: retired Cognitive needs: No Hearing needs: No Vision needs: Yes Questionnaire PHQ-9 Over the last 2 weeks, how often have you been bothered by any of the following problems? 1. Little interest or pleasure in doing things: not at all 2. Feeling down, depressed, or hopeless: several days 3. Trouble falling or staying asleep, or sleeping too much: not at all 4. Feeling tired or having little energy: more than half the days 5. Poor appetite or overeating: not at all 6. Feeling bad about yourself - or that you are a failure or have let yourself or your family down: not at all 7. Trouble concentrating on things, such as reading the newspaper or watching television: not at all 8. Moving or speaking so slowly that other people could have noticed. Or the opposite - being so fidgety or restless that you have been moving around a lot more than usual: not at all 9. Thoughts that you would be better off or of hurting yourself in some way: not at all Total score: 3 Depression Screening Interpretation: Negative Depression Screening Done: Yes 66768 - PHQ-9 Billing: Yes Source: Developed by Drs. Wilver Hutchinson, Belen Villa, True Dash and colleagues, with an educational brown from [employer]. Thrive Questionnaire Date Thrive assessed: 09/12/24 I am a: Patient What is your living situation today?: I have a steady place to live Within the past 12 months, did the food you bought not last and you didn't have the money to get more?: Never true Within the past 12 months, did you worry whether your food would run out before you got money to buy more?: Never true Do you have trouble paying for medicines?: No Do you have trouble getting transportation to medical appointments?: No Do you have trouble paying your heating and electricity bill?: No Do you have trouble taking care of your child, family member or friend?: No Do you have trouble with day-to-day activities such as bathing, preparing meals, shopping, managing finances, etc.?: No Are you currently unemployed and looking for a job?: No Are you interested in more education?: No Please select the resources that you would like help with: None Currently or been in a relationship where the following occur: No concerns reported THRIVE Score: 0 AUDIT C Alcohol Use Questionnaire (AUDIT-C) 1. How often do you have a drink containing alcohol?: Never 3. How often do you have six or more drinks on one occasion?: Never Total Score: 0 Score Reviewed/Action Taken: Yes JOVANNY-7 AMB Questionnaire JOVANNY-7 Date JOVANNY - 7 assessed: 09/12/24 Feeling nervous, anxious, or on edge: 0 = Not at all Not being able to stop or control worryin = Not at all Worrying too much about different things: 0 = Not at all Trouble relaxin = Not at all Being so restless that it is hard to sit still: 0 = Not at all Becoming easily annoyed or irritable: 0 = Not at all Feeling afraid as if something awful might happen: 0 = Not at all Total JOVANNY-7 score (0-4 normal; 5-9 mild; 10-14 moderate; 15-21 severe): 0 Source: Developed by Drs. Wilver Hutchinson, Belen Villa, True Dash and colleagues, with an educational brown from [employer]. JOVANNY-7 Assessment Billing JOVANNY-7 Assessment Tool: JOVANNY-7 Assessment 40153 Physical exam (Primary Care) Vital Signs: Last Vital Signs Pulse 61 09/12/24 13:34 BP 138/62 09/12/24 13:34 Pulse Ox 97 09/12/24 13:34 Oxygen Delivery Method Room Air 09/12/24 13:34 BMI result Body Mass Index 23.1 Tobacco/Smoking Status: Tobacco use Status Tobacco use date assessed 09/12/24 09/12/24 13:39 Patient Tobacco Use Status Never used Tobacco 09/12/24 13:39 Tobacco use type Cigarette 09/12/24 13:39 e-Cigarette/Vaping Use Never Used 09/12/24 13:39 PHQ-9: PHQ-9 Score PHQ-9: Total score 3 09/12/24 13:39 Depression Screening Interpretation: Negative Thrive Assessment: Date of Thrive Assessment Date Thrive assessed 09/12/24 09/12/24 13:39 Currently or been in a relationship where the following occur: No concerns reported Coding Level of Care Code Est Pt Level 4 (21515) Diagnoses Irritable bowel syndrome with diarrhea K58.0 Irritable bowel syndrome type: with diarrhea Environmental allergies Z91.09 Recurrent major depressive disorder, in partial remission F33.41 Active/Remission status: in partial remission Pacemaker Z95.0 PAF (paroxysmal atrial fibrillation) I48.0 Anxiety, generalized F41.1 Hypertension, essential I10 Additional Codes JOVANNY-7 Assessment Billing - JOVANNY-7 Assessment Tool: JOVANNY-7 Assessment 85144 ([id number]) PHQ-9 - 23847 - PHQ-9 Billing: Yes ([id number]) Assessment & Plan Assessment & Plan (1) Irritable bowel syndrome: Code(s): K58.9 - Irritable bowel syndrome, unspecified Category: Medical Qualifiers: Irritable bowel syndrome type: with diarrhea Qualified Code(s): K58.0 - Irritable bowel syndrome with diarrhea (2) Environmental allergies: Code(s): Z91.09 - Other allergy status, other than to drugs and biological substances Category: Medical (3) Major depression, recurrent: Code(s): F33.9 - Major depressive disorder, recurrent, unspecified Category: Medical Qualifiers: Active/Remission status: in partial remission Qualified Code(s): F33.41 - Major depressive disorder, recurrent, in partial remission (4) Pacemaker: Onset Date: ~01/2022 Comment: ([facility] DC[facility] - placed 02/05/22) Code(s): Z95.0 - Presence of cardiac pacemaker Category: Medical (5) PAF (paroxysmal atrial fibrillation): Code(s): I48.0 - Paroxysmal atrial fibrillation Category: Medical (6) Anxiety, generalized: Code(s): F41.1 - Generalized anxiety disorder Category: Medical (7) Hypertension, essential: Code(s): I10 - Essential (primary) hypertension Category: Medical Plan - The patient is a 78-year-old female with a history of atrial fibrillation , anxiety, depression, IBS, allergies Came in for follow-up appointment last visit was May of 2023 Only medication patient is taking is dicyclomine and allergy medication through this office She is established with psychiatrist and distributor advertising material for her other medications - Recent evaluation by Dr. Brewster for potential coronary artery catheterization considered due to episodes of dizziness and irregular heartbeats. Followed by cardiac ablation - Continuous monitoring with [place] home device showing intermittent atrial fibrillation. - has appointment coming with Dr. Steele in September - Adherence to medication regime noted, including use of Eliquis, due to atrial fibrillation. - IBS stable with dicyclomine up to 2 times a day refills sent for the whole year - allergies stable with Claritin as needed - psychiatric medications as per Psychiatry Medications - Eliquis, 5 mg BID for atrial fibrillation. - Alprazolam, 0.25 mg as needed for anxiety. - Venlafaxine, 75 mg at night and 37.5 mg in the morning for depression. - Diltiazem, 360 mg for hypertension. - Digoxin, 0.125 mg for atrial fibrillation. - Vitamin D3 supplement. - Dicyclomine as needed for irritable bowel syndrome. - Claritin, as needed for allergies. - Tylenol PM, used at night for sleep assistance. Problem List - Atrial Fibrillation - Vitamin B12 Elevation checked in 2022, recent report not available yet - Hypertension - Depression/anxiety - Irritable Bowel Syndrome - Dizziness Diagnostic results - Electrocardiogram (EKG): Reported as stable. - Home monitoring device ([employer]): Shows intermittent atrial fibrillation. [facility] of Care - Dr. Brewster (consultation for cardiac procedures) - Dr. Steele (distributor advertising material for follow-up appointment) - psychiatry Patient Instructions - Continue all prescribed medications and refills as needed. - Consider the scheduled coronary artery catheterization to evaluate heart vessel patency. - Observe and report any increased dizziness or changes in heart rhythm. - Use Claritin and Dicyclomine as needed for allergies and irritable bowel syndrome respectively. - Attend the follow-up with Dr. Steele on September 25. Medications: Changed From dicyclomine 20 mg PO ONCE 30 days PRN 30 tabs 0RF IBS To dicyclomine 20 mg PO BID 90 days PRN 180 tabs 1RF IBS Refilled dicyclomine 20 mg PO BID 90 days PRN 180 tabs 1RF IBS loratadine (Allergy Relief (loratadine)) 10 mg PO DAILY 90 days PRN 90 tabs 3RF allergy symptoms
== END 2024-09-12 14:10 | disposition home or self-care (01) ==
PROVIDERS: PCP Internal Medicine; Visit Provider Internal Medicine
DX: K58.0 Irritable bowel syndrome with diarrhea (principal); F33.41 Major depressive disorder, recurrent, in partial remission; I48.0 Paroxysmal atrial fibrillation; Z91.09 Other allergy status, other than to drugs and biological substances; Z95.0 Presence of cardiac pacemaker; F41.1 Generalized anxiety disorder; I10 Essential (primary) hypertension

== ENCOUNTER → 2024-09-25 13:33 | Outpatient (BNVA) | payer OTHER, SELFPAY | PROVIDERS: PCP Internal Medicine; Visit Provider Internal Medicine | DX: I48.0 Paroxysmal atrial fibrillation (principal); I49.5 Sick sinus syndrome; I10 Essential (primary) hypertension; F17.210 Nicotine dependence, cigarettes, uncomplicated; Z95.0 Presence of cardiac pacemaker | CPT/HCPCS: 99212 ==

== ENCOUNTER → 2024-09-25 13:58 | Outpatient (AMB) | payer OTHER, SELFPAY ==
[2024-09-25 13:40] VITALS: BP 138/64; PULSE 78; BMI 22.4
--- NOTE | 2024-09-25 13:40 | MHC.OFFVIS ---
Vital Signs 09/25/24 13:40 Height 5 ft Weight 114 lb 10.246 oz BMI 22.4 BP 138/64 Blood Pressure Location Lt brachial Position Sitting Pulse 78 Pulse Source Pulse Oximeter Intake Visit Reasons: r/s 07/19/24 4 mos followup Allergies acetaminophen [From Vicodin] Allergy (Unknown, Verified 09/12/24 13:38) Hives, Shortness of Breath, swelling, rash hydrocodone [From Vicodin] Allergy (Unknown, Verified 09/12/24 13:38) Hives, Shortness of Breath, swelling, rash levofloxacin [Levaquin] Allergy (Unknown, Verified 09/12/24 13:38) unknown morphine Allergy (Unknown, Verified 09/12/24 13:38) Itching/Hives, swelling,rash buprenorphine [From Butrans] Adverse Reaction (Severe, Verified 09/12/24 13:38) severe itching Seasonal / Environmental Allergy (Unknown, Uncoded 10/17/23 13:30) Unknown Medication List - Last Reconciled 09/25/24 by Jalen Steele MD albuterol sulfate 90 mcg/actuation (ProAir HFA) 1 inh inhalation QID PRN 30 days alprazolam 0.5 mg (2 x 0.25 mg) PO DAILY PRN 1 day apixaban (Eliquis) 5 mg PO BID cholecalciferol (vitamin D3) 50 mcg PO DAILY cyanocobalamin (vitamin B-12) 1,000 mcg PO Q OTHER DAY dicyclomine 20 mg PO BID PRN 90 days digoxin 125 mcg PO DAILY diltiazem HCl CD 360 mg PO DAILY diphenhydramine-acetaminophen 25-500 mg (Tylenol PM Extra Strength) 1 tab PO BEDTIME PRN loratadine (Allergy Relief (loratadine)) 10 mg PO DAILY PRN 90 days droonhrvuwgc-mtey-xhhnh acid 18-400 mg-mcg (Spectravite Advanced Formula) 1 tab PO DAILY 90 days venlafaxine ER 75 mg PO QPM venlafaxine ER 37.5 mg PO QAM HPI Comments Details: Millie returns for follow-up. In 2021, she was given a Holter monitor for evaluation of atrial fibrillation, but that showed frequent pauses as much as 8.9 seconds. Subsequently, underwent pacemaker placement. In 2023, she was found to be in atrial fibrillation consistently and that led to cardioversion. However, she is back in atrial fibrillation during follow-up visits. Then started amiodarone and planned another cardioversion but she was already back in sinus rhythm. Overall, it seems that she is going back and forth atrial fibrillation. Still has palpitations and some nonspecific symptoms like feeling dizzy but not clear if that is related to the arrhythmia. Recently, saw EP at [facility]. We need to obtain the note and see what the plan is but according to patient, she was offered ablation. [facility] Medical History Lumbar spondylosis PTSD (post-traumatic stress disorder) Fibromyalgia Pain management Osteoarthritis Surgical History History of cholecystectomy History of cardiac pacemaker H/O colonoscopy History of bilateral breast reduction surgery History of hysterectomy History of gastric bypass History of left knee replacement Family History Father Colon cancer Mother Lung cancer Son No problems noted. Son No problems noted. Son No problems noted. Daughter No problems noted. Social History Household Members: None Housing: Apartment Do you presently have visiting nurse or other home services: No Alcohol intake: never Patient Tobacco Use Status: Never used Tobacco Tobacco use type: Cigarette Cigarette Packs Per Day: 0.75 Cigarettes Per Day: 3 Years Smoked: 50 +/- e-Cigarette/Vaping Use: Never Used Second Hand Smoke Exposure: Yes service: No Current occupational status: retired Cognitive needs: No Hearing needs: No Vision needs: Yes Review of Systems Const Denies weakness ENT Denies dizziness Card Denies chest pain, Denies chest pain with activity, Denies syncope, Denies rapid heart rate, Denies pedal edema, Denies edema, Denies leg edema, Denies lightheadedness, Denies palpitations, Denies dyspnea, Denies dyspnea on exertion and Denies orthopnea Resp Denies cough, Denies dyspnea and Denies dyspnea on exertion GI Denies hematochezia and Denies change in stool character Musc Denies abnormal gait, Denies muscle cramps, Denies muscle weakness, Denies numbness, Denies radiating pain into limb and Denies tingling Neuro Denies abnormal gait, Denies dizziness, Denies syncope, Denies numbness, Denies tingling and Denies weakness Endo Denies palpitations Physical Exam Vital Signs: Last Vital Signs Pulse 78 09/25/24 13:40 BP 138/64 09/25/24 13:40 BMI result Body Mass Index 22.4 Const General: comfortable and no acute distress Orientation/consciousness: patient oriented x3 HEENT Other: Unremarkable Head: Yes normal to inspection Neck Neck: Yes normal visual inspection Chest Chest palpation & inspection: normal inspection of the chest Resp Auscultation: clear to auscultation bilaterally Cardio Palpation: normal PMI Heart sounds: S1 normal heart sound present, S2 normal heart sound present, no gallops, no murmurs and no rubs GI Palpation (GI): Soft to palpation Back/Spine/Pelvis Other: unremarkable Skin General skin exam: no rashes or lesions noted Neuro General: patient oriented x3 Extrem General: Yes normal to inspection Psych Mental Status: mental status grossly normal Assessment & Plan Assessment & Plan (1) PAF (paroxysmal atrial fibrillation): Code(s): I48.0 - Paroxysmal atrial fibrillation Category: Medical Plan: Cardioversion December 2023. Then went back into atrial fibrillation, but Amiodarone loaded and brought back for another cardioversion- but she was already in sinus. Based on pacemaker interrogation, she is back and forth atrial fibrillation with an overall burden of about 34%. Currently on meds including diltiazem and digoxin. Intolerant to beta-blockers. No longer on amiodarone. On Eliquis. Has already seen EP and possibly going for ablation. Will need to obtain that note. Cardiac testing- Echocardiogram 2023-LVEF 63%. Left atrium severely dilated. Aortic valve calcification with early stenosis. Myocardial perfusion imaging 2021 without any clear ischemic findings. (2) Sick sinus syndrome: Code(s): I49.5 - Sick sinus syndrome Category: Medical Plan: Status post pacemaker. Functioning appropriately. (3) Hypertension, essential: Code(s): I10 - Essential (primary) hypertension Category: Medical Plan: Stable. Coding Level of Care Code Est Pt Level 4 (17825) Diagnoses PAF (paroxysmal atrial fibrillation) I48.0 Sick sinus syndrome I49.5 Hypertension, essential I10
== END | disposition home or self-care (01) ==
PROVIDERS: PCP Internal Medicine; Visit Provider Internal Medicine
DX: I48.0 Paroxysmal atrial fibrillation (principal); I49.5 Sick sinus syndrome; I10 Essential (primary) hypertension
CPT/HCPCS: 99214

== ENCOUNTER → 2024-11-07 23:59 | Outpatient (BNV) | payer OTHER, SELFPAY ==
--- NOTE | 2024-11-12 21:23 | A.OFFVIS_ITS ---
Intake Visit Reasons: remote device check- [facility] Allergies acetaminophen [From Vicodin] Allergy (Unknown, Verified 09/12/24 13:38) Hives, Shortness of Breath, swelling, rash hydrocodone [From Vicodin] Allergy (Unknown, Verified 09/12/24 13:38) Hives, Shortness of Breath, swelling, rash levofloxacin [Levaquin] Allergy (Unknown, Verified 09/12/24 13:38) unknown morphine Allergy (Unknown, Verified 09/12/24 13:38) Itching/Hives, swelling,rash buprenorphine [From Butrans] Adverse Reaction (Severe, Verified 09/12/24 13:38) severe itching Seasonal / Environmental Allergy (Unknown, Uncoded 10/17/23 13:30) Unknown PENDING SALE TO [facility] Medical History Lumbar spondylosis PTSD (post-traumatic stress disorder) Fibromyalgia Pain management Osteoarthritis Surgical History History of cholecystectomy History of cardiac pacemaker H/O colonoscopy History of bilateral breast reduction surgery History of hysterectomy History of gastric bypass History of left knee replacement Family History Father Colon cancer Mother Lung cancer Son No problems noted. Son No problems noted. Son No problems noted. Daughter No problems noted. Social History Household Members: None Housing: Apartment Do you presently have visiting nurse or other home services: No Alcohol intake: never Patient Tobacco Use Status: Never used Tobacco Tobacco use type: Cigarette Cigarette Packs Per Day: 0.75 Cigarettes Per Day: 3 Years Smoked: 50 +/- e-Cigarette/Vaping Use: Never Used Second Hand Smoke Exposure: Yes service: No Current occupational status: retired Cognitive needs: No Hearing needs: No Vision needs: Yes Office Procedures Cardiac Device Check Cardiac Device Check Details: Date of service- 11/07/2024 ; Battery life >7 years; normal lead parameters; AP 97%; COMPUTER CUSTOMER SUPPORT SPECIALIST <1%; brief atrial tach, but otherwise no significant arrhythmias. Overall normal device function. [id number] Cardiac Device Interrogation, pacemaker Procedure code (CPT) selection complete Assessment & Plan Assessment & Plan (1) Pacemaker: Onset Date: ~01/2022 Comment: ([facility] DCPP - placed 02/05/22) Code(s): Z95.0 - Presence of cardiac pacemaker Category: Medical (2) PAF (paroxysmal atrial fibrillation): Code(s): I48.0 - Paroxysmal atrial fibrillation Category: Medical Plan x Coding Level of Care Code Procedure Only Diagnoses Pacemaker Z95.0 PAF (paroxysmal atrial fibrillation) I48.0 CPT Codes Cardiac Device Check - Cardiac Device 12: [id number] Cardiac Device Interrogation, pacemaker ([id number])
== END ==
PROVIDERS: PCP Internal Medicine; Visit Provider Internal Medicine
DX: I48.0 Paroxysmal atrial fibrillation (principal); Z95.0 Presence of cardiac pacemaker
CPT/HCPCS: 93294

== ENCOUNTER 2025-01-09 10:27 | Outpatient (REF) | payer OTHER, SELFPAY ==
--- OUTSIDE RECORDS SUMMARY | 2025-01-09 11:27 | XMS_ITS ---
Author Organization [facility] Address [address] [place] [address] Care Team Providers Care E Learning Designer Name Role Phone Servando ANDREW, Leatha Primary Care Provider Wilver Tolentino [phone] REASON FOR VISIT Patient presents today for a colon screening Encounters Encounter Location Date Provider Diagnosis [facility] [address] [place] [phone] 11/08/2023 Wilver Nguyen Plan Of Treatment No Information Progress Notes * ALICIA PARRYDOB: (79 yo F)Acc No.[id number]:11/08/2023 Progress Notes Patient:?ALICIA PARRY Provider:?Wilver Nguyen MD :1945???Age:78 Y???Sex:Female D ate:11/08/2023 Address:[address] [id number] Pcp:Leatha Al MD Subjective: * Chief Complaints: * ???1. Patient presents today for a colon screening. * Medical History:? Objective: * Vitals:? Assessment: Plan: * Treatment: * * The named appointment provid er may or may not be the originator of this progress note, and it is not deemed complete until electronically signed by the appointment provider. Sign off status: Pending * Provider:?Wilver Nguyen MD Date:? 024 Generated for Cheryl sánchez/Noreen/eTransmitting on:?01/09/2025 11:26 AM EDT
[2025-01-09 13:29] LABS: MANUAL DIFF FLAG NO
[2025-01-09 13:33] LABS: Basophils Absolute Auto 0.1 X10*3/uL (0.0-0.2); Basophils Percent Auto 1.5 % (0-2); Eosinophils Absolute Auto 0.3 X10*3/uL (0.0-0.4); Eosinophils Percent Auto 5.7 % (0-4); Hematocrit 37.9 % (37.0-47.0); Hemoglobin 12.2 g/dl (12.0-16.0); Imm Gran Abs Auto 0.01 X10*3/uL (0.00-0.03); Imm Gran Pct Auto 0.2 % (0.0-0.4); Lymphocytes Absolute Auto 1.3 X10*3/uL (1.2-4.9); Lymphocytes Percent Auto 26.5 % (20-40); Mean Corpuscular HGB Conc 32.2 g/dl (31.0-35.0); Mean Corpuscular Hemoglobin 29.3 pg (27.0-33.0); Mean Corpuscular Volume 91.1 fL (80.0-98.0); Mean Platelet Volume 12.3 fL (9.4-12.3); Monocytes Absolute Auto 0.5 X10*3/uL (0.1-1.2); Monocytes Percent Auto 9.7 % (2-11); Neutrophils Absolute Auto 2.7 x10*3/uL (2.0-8.3); Neutrophils Percent Auto 56.4 % (45-73); Platelet Count 211 X10*3/uL (160-400); Red Blood Count 4.16 X10*6/uL (4.20-5.50); Red Cell Distribution Width 13.5 % (11.0-16.0); White Blood Count 4.8 X10*3/uL (4.8-10.8)
[2025-01-09 13:51] LABS: Anion Gap 10 (12-20); Blood Urea Nitrogen 15 mg/dL (9-16); Carbon Dioxide 27 mmol/L (22-29); Chloride 107 mmol/L (96-108); Estimated Glomerular Filt Rate > 60; Glucose Random 94 mg/dL (60-115); Potassium 4.4 mmol/L (3.3-5.1); Sodium 140 mmol/L (135-145)
[2025-01-09 14:07] LABS: INTERNATIONAL NORM RATIO 1.3 (0.9-1.1)
== END 2025-01-09 10:28 | disposition home or self-care (01) ==
LOC: HO.HMGCLDS 10:27
PROVIDERS: PCP Internal Medicine; Visit Provider Internal Medicine Clinical Cardiac Electrophysiology
DX: I48.0 Paroxysmal atrial fibrillation (principal)
CPT/HCPCS: 36415; 80048; 85025; 85610

== ENCOUNTER 2025-01-23 13:12 | Outpatient (AMB) | payer OTHER, SELFPAY ==
[2025-01-23 13:26] VITALS: BP 120/60; PULSE 60; BMI 22.0
--- NOTE | 2025-01-23 13:26 | A.OFFVIS_ITS ---
Vital Signs 01/23/25 13:26 Height 5 ft Weight 112 lb 6.972 oz BMI 22.0 BP 120/60 Blood Pressure Location Lt brachial Position Sitting Pulse 60 Pulse Source Monitor Intake Visit Reasons: 4 mth f/up Allergies acetaminophen [From Vicodin] Allergy (Unknown, Verified 09/12/24 13:38) Hives, Shortness of Breath, swelling, rash hydrocodone [From Vicodin] Allergy (Unknown, Verified 09/12/24 13:38) Hives, Shortness of Breath, swelling, rash levofloxacin [Levaquin] Allergy (Unknown, Verified 09/12/24 13:38) unknown morphine Allergy (Unknown, Verified 09/12/24 13:38) Itching/Hives, swelling,rash buprenorphine [From Butrans] Adverse Reaction (Severe, Verified 09/12/24 13:38) severe itching Seasonal / Environmental Allergy (Unknown, Uncoded 10/17/23 13:30) Unknown Medication List - Last Reconciled 01/23/25 by Jlaen Steele MD albuterol sulfate 90 mcg/actuation (ProAir HFA) 1 inh inhalation QID PRN 30 days alprazolam 0.5 mg (2 x 0.25 mg) PO DAILY PRN 1 day apixaban (Eliquis) 5 mg PO BID cholecalciferol (vitamin D3) 50 mcg PO DAILY cyanocobalamin (vitamin B-12) 1,000 mcg PO Q OTHER DAY dicyclomine 20 mg PO BID PRN 90 days digoxin 125 mcg PO DAILY diltiazem HCl CD 360 mg PO DAILY diphenhydramine-acetaminophen 25-500 mg (Tylenol PM Extra Strength) 1 tab PO BEDTIME PRN loratadine (Allergy Relief (loratadine)) 10 mg PO DAILY PRN 90 days fjekyjigkbng-esbu-aijvp acid 18-400 mg-mcg (Spectravite Advanced Formula) 1 tab PO DAILY 90 days venlafaxine ER 75 mg PO QPM venlafaxine ER 37.5 mg PO QAM HPI Comments Details: Millie returns for follow-up. In 2021, she was given a Holter monitor for evaluation of atrial fibrillation, but that showed frequent pauses as much as 8.9 seconds. Subsequently, underwent pacemaker placement. In 2023, she was found to be in atrial fibrillation consistently and that led to cardioversion. However, she was back in atrial fibrillation on follow-up visits. It seems that she was back and forth atrial fibrillation having nonspecific symptoms like dizziness. Had tried amiodarone as well. Eventually saw electrophysiology and underwent atrial fibrillation ablation recently. She states she is doing well now. No new concerns. [facility] Medical History Lumbar spondylosis PTSD (post-traumatic stress disorder) Fibromyalgia Pain management Osteoarthritis Surgical History History of cholecystectomy History of cardiac pacemaker H/O colonoscopy History of bilateral breast reduction surgery History of hysterectomy History of gastric bypass History of left knee replacement Family History Father Colon cancer Mother Lung cancer Son No problems noted. Son No problems noted. Son No problems noted. Daughter No problems noted. Social History Household Members: None Housing: Apartment Do you presently have visiting nurse or other home services: No Alcohol intake: never Patient Tobacco Use Status: Never used Tobacco Tobacco use type: Cigarette Cigarette Packs Per Day: 0.75 Cigarettes Per Day: 3 Years Smoked: 50 +/- e-Cigarette/Vaping Use: Never Used Second Hand Smoke Exposure: Yes service: No Current occupational status: retired Cognitive needs: No Hearing needs: No Vision needs: Yes Review of Systems Const Denies weakness ENT Denies dizziness Card Denies chest pain, Denies chest pain with activity, Denies syncope, Denies rapid heart rate, Denies pedal edema, Denies edema, Denies leg edema, Denies lighthead edness, Denies palpitations, Denies dyspnea, Denies dyspnea on exertion and Denies orthopnea Resp Denies cough, Denies dyspnea and Denies dyspnea on exertion GI Denies hematochezia and Denies change in stool character Musc Denies abnormal gait, Reports myalgias, Denies muscle cramps, Denies muscle weakness, Denies numbness, Denies radiating pain into limb and Denies tingling Neuro Denies abnormal gait, Denies dizziness, Denies syncope, Denies numbness, Denies tingling and Denies weakness Endo Denies palpitations Physical Exam Vital Signs: Last Vital Signs Pulse 60 06/11/25 13:26 BP 120/60 01/23/25 13:26 BMI result Body Mass Index 22.0 Const General: comfortable and no acute distress Orientation/consciousness: patient oriented x3 HEENT Other: Unremarkable Head: Yes normal to inspection Neck Neck: Yes normal visual inspection Chest Chest palpation & inspection: normal inspection of the chest Resp Auscultation: clear to auscultation bilaterally Cardio Palpation: normal PMI Heart sounds: S1 normal heart sound present, S2 normal heart sound present, no gallops, no murmurs and no rubs GI Palpation (GI): Soft to palpation Back/Spine/Pelvis Other: unremarkable Skin General skin exam: no rashes or lesions noted Neuro General: patient oriented x3 Extrem General: Yes normal to inspection Psych Mental Status: mental status grossly normal Office Procedures EKG Details: EKG with sinus rhythm at 60/Min; nonspecific ST-T changes; [place]. [address]-[id number], Complete Assessment & Plan Assessment & Plan (1) PAF (paroxysmal atrial fibrillation): Code(s): I48.0 - Paroxysmal atrial fibrillation Category: Medical Plan: Cardioversion December 2023. Atrial fibrillation January 2025. She may remain on Diltiazem. Stop Digoxin. Previously intolerant of beta- blockers. She was on Amiodarone but not anymore. Continue anticoagulation with Eliquis. We will follow-up on the pacemaker for any atrial fibrillation recurrence. Cardiac testing- Echocardiogram 2023-LVEF 63%. Left atrium severely dilated. Aortic valve calcification with early stenosis. Myocardial perfusion imaging 2021 without any clear ischemic findings. (2) Sick sinus syndrome: Code(s): I49.5 - Sick sinus syndrome Category: Medical Plan: Status post pacemaker. Functioning appropriately. (3) Hypertension, essential: Code(s): I10 - Essential (primary) hypertension Category: Medical Plan: Stable. Medications: Discontinued digoxin Discontinued Reason: Doctor's Order 125 mcg PO DAILY 90 tabs 1RF Coding Level of Care Code Est Pt Level 4 (69479) Complex EM visit Add On G2211 Diagnoses PAF (paroxysmal atrial fibrillation) I48.0 Sick sinus syndrome I49.5 Hypertension, essential I10 CPT Codes EKG - CPT: 63148-[id number], Complete ([id number])
--- OUTSIDE RECORDS SUMMARY | 2025-01-23 14:52 | XMS_ITS ---
Author Organization [facility] Address [address] [place] [address] Care Team Providers Care Diagram Clerk Name Role Phone Servando ANDREW, Leatha Primary Care Provider Wilver Tolentino [phone] REASON FOR VISIT Patient presents today for a colon screening Encounters Encounter Location Date Provider Diagnosis [facility] [address] [place] [id number] 11/08/2023 Wilver Nguyen Plan Of Treatment No Information Progress Notes * ALICIA PARRYDOB: (79 yo F)Acc No.[id number]:11/08/2023 Progress Notes Patient:?ALICIA PARRY Provider:?Wilver Nguyen MD :1945???Age:78 Y???Sex:Female D ate:11/08/2023 Address:[id number] Pcp:Leatha Al MD Subjective: * Chief Complaints: [...] MD Date:? 024 Generated for Cheryl sánchez/Noreen/eTransmitting on:?01/23/2025 02:51 PM EDT
== END 2025-01-23 14:01 | disposition home or self-care (01) ==
LOC: HO.HCS 13:13
PROVIDERS: PCP Internal Medicine; Visit Provider Internal Medicine
DX: I48.0 Paroxysmal atrial fibrillation (principal); I49.5 Sick sinus syndrome; I10 Essential (primary) hypertension
CPT/HCPCS: 93010; 99214; G2211

== ENCOUNTER → 2025-01-23 13:12 | Outpatient (BNVA) | payer OTHER, SELFPAY | PROVIDERS: PCP Internal Medicine; Visit Provider Internal Medicine | DX: I48.0 Paroxysmal atrial fibrillation (principal); I49.5 Sick sinus syndrome; I10 Essential (primary) hypertension | CPT/HCPCS: 93005; 99212 ==

== ENCOUNTER → 2025-02-06 23:59 | Outpatient (BNV) | payer OTHER, SELFPAY ==
--- NOTE | 2025-02-10 15:02 | A.OFFVIS_ITS ---
Intake Visit Reasons: Remote device check- [facility] Allergies acetaminophen (From Vicodin) Allergy (Unknown, Verified 09/12/24 13:38) Hives, Shortness of Breath, swelling, rash hydrocodone (From Vicodin) Allergy (Unknown, Verified 09/12/24 13:38) Hives, Shortness of Breath, swelling, rash levofloxacin (Levaquin) Allergy (Unknown, Verified 09/12/24 13:38) unknown morphine Allergy (Unknown, Verified 09/12/24 13:38) Itching/Hives, swelling,rash buprenorphine (From Butrans) Adverse Reaction (Severe, Verified 09/12/24 13:38) severe itching Seasonal / Environmental Allergy (Unknown, Uncoded 10/17/23 13:30) Unknown [facility] Medical History Lumbar spondylosis PTSD (post-traumatic stress disorder) Fibromyalgia Pain management Osteoarthritis Surgical History History of cholecystectomy History of cardiac pacemaker H/O colonoscopy History of bilateral breast reduction surgery History of hysterectomy History of gastric bypass History of left knee replacement Family History Father Colon cancer Mother Lung cancer Son No problems noted. Son No problems noted. Son No problems noted. Daughter No problems noted. Social History Household Members: None Housing: Apartment Do you presently have visiting nurse or other home services: No Alcohol intake: never Patient Tobacco Use Status: Never used Tobacco Tobacco use type: Cigarette Cigarette Packs Per Day: 0.75 Cigarettes Per Day: 3 Years Smoked: 50 +/- e-Cigarette/Vaping Use: Never Used Second Hand Smoke Exposure: Yes service: No Current occupational status: retired Cognitive needs: No Hearing needs: No Vision needs: Yes Office Procedures Cardiac Device Check Cardiac Device Check Details: Date of service- 02/06/2025 ; Battery life >6 years; normal lead parameters; AP 98%; DATABASE ADMINISTRATION ASSOCIATE <1 %; no significant arrhythmias. Overall normal device function. [id number] Cardiac Device Interrogation, pacemaker Procedure code (CPT) selection complete Assessment & Plan Assessment & Plan (1) Pacemaker: Onset Date: ~01/2022 Comment: ([facility] DCPP - placed 02/05/22) Code(s): Z95.0 - Presence of cardiac pacemaker Category: Medical (2) Junctional rhythm: Code(s): I49.8 - Other specified cardiac arrhythmias Category: Medical Plan x Coding Level of Care Code Procedure Only Diagnoses Pacemaker Z95.0 Junctional rhythm I49.8 CPT Codes Cardiac Device Check - Cardiac Device 12: [id number] Cardiac Device Interrogation, pacemaker ([id number])
== END ==
PROVIDERS: PCP Internal Medicine; Visit Provider Internal Medicine
DX: I49.8 Other specified cardiac arrhythmias (principal); Z95.0 Presence of cardiac pacemaker
CPT/HCPCS: 93294

== ENCOUNTER → 2025-05-08 23:59 | Outpatient (BNV) | payer OTHER, SELFPAY ==
--- NOTE | 2025-05-20 09:31 | MHC.OFFVIS ---
Intake Visit Reasons: Remote device check- [facility] Allergies acetaminophen (From Vicodin) Allergy (Unknown, Verified 09/12/24 13:38) Hives, Shortness of Breath, swelling, rash hydrocodone (From Vicodin) Allergy (Unknown, Verified 09/12/24 13:38) Hives, Shortness of Breath, swelling, rash levofloxacin (Levaquin) Allergy (Unknown, Verified 09/12/24 13:38) unknown morphine Allergy (Unknown, Verified 09/12/24 13:38) Itching/Hives, swelling,rash buprenorphine (From Butrans) Adverse Reaction (Severe, Verified 09/12/24 13:38) severe itching Seasonal / Environmental Allergy (Unknown, Uncoded 10/17/23 13:30) Unknown [facility] Medical History Lumbar spondylosis PTSD (post-traumatic stress disorder) Fibromyalgia Pain management Osteoarthritis Surgical History History of cholecystectomy History of cardiac pacemaker H/O colonoscopy History of bilateral breast reduction surgery History of hysterectomy History of gastric bypass History of left knee replacement Family History Father Colon cancer Mother Lung cancer Son No problems noted. Son No problems noted. Son No problems noted. Daughter No problems noted. Social History Household Members: None Housing: Apartment Do you presently have visiting nurse or other home services: No Alcohol intake: never Patient Tobacco Use Status: Never used Tobacco Tobacco use type: Cigarette Cigarette Packs Per Day: 0.75 Cigarettes Per Day: 3 Years Smoked: 50 +/- e-Cigarette/Vaping Use: Never Used Second Hand Smoke Exposure: Yes service: No Current occupational status: retired Cognitive needs: No Hearing needs: No Vision needs: Yes Office Procedures Cardiac Device Check Cardiac Device Check Details: Remote pacemaker report generated 05/13/2025. Pacemaker function is adequate [id number] Cardiac Device Interrogation, pacemaker Procedure code (CPT) selection complete Assessment & Plan Assessment & Plan (1) Pacemaker: Onset Date: ~01/2022 Comment: ([facility] DCPP - placed 02/05/22) Code(s): Z95.0 - Presence of cardiac pacemaker Category: Medical Plan: See above Coding Level of Care Code Procedure Only Diagnoses Pacemaker Z95.0 CPT Codes Cardiac Device Check - Cardiac Device 12: [id number] Cardiac Device Interrogation, pacemaker ([id number])
== END ==
PROVIDERS: PCP Internal Medicine; Visit Provider Internal Medicine Cardiovascular Disease
DX: Z45.018 Encounter for adjustment and management of other part of cardiac pacemaker (principal)
CPT/HCPCS: 93294

== ENCOUNTER 2025-05-29 13:14 | Outpatient (AMB) | payer OTHER, SELFPAY ==
--- OUTSIDE RECORDS SUMMARY | 2024-03-07 09:00 | XMS_ITS ---
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 Name Role Phone Servando ANDREW, Leatha Primary Care Provider Wilver Tolentino [phone] REASON FOR VISIT Patient presents today for a screening colonoscopy Encounters Encounter Location Date Provider Diagnosis [facility] [address] [place] [id number] 03/07/2024 Wilver Nguyen Plan Of Treatment No Information Progress Notes * ALICIA PARRYDOB: (79 yo F)Acc No.[id number]:03/07/2024 Progress Notes Patient: ALICIA DUNN Provider: Hamilton Nguyen MD :1945 A ge:78 Y S ex:Female Date:03/07/2024 Address: [id number] Pcp:Leatha Al MD Subjective: * Chief Complaints: * 1 . Patient presents today for a screening colonoscopy. * Medical History: Objective: * Vitals: Assessment: Plan: * Treatment: * * The named appointment provid er may or may not be the originator of this progress note, and it is not deemed complete until electronically signed by the appointment provider. Sign off status: Pending * Provider: Hamilton Nguyen MD Date: 0 03/07/2024 Generated for Cheryl sánchez/Noreen/eTransmitting on: 04:54 PM EDT
--- NOTE | 2025-05-29 13:38 | A.OFFVIS_ITS ---
Vital Signs 05/29/25 13:41 Height 5 ft Weight 113 lb 12.136 oz BMI 22.2 BP 150/62 H Blood Pressure Location Lt brachial Position Sitting Pulse 60 Pulse Source Pulse Oximeter Intake Visit Reasons: 4 mth f/up [employer] Required: No Accompanied by: Self / Same As Patient Allergies acetaminophen (From Vicodin) Allergy (Unknown, Verified 09/12/24 13:38) Hives, Shortness of Breath, swelling, rash hydrocodone (From Vicodin) Allergy (Unknown, Verified 09/12/24 13:38) Hives, Shortness of Breath, swelling, rash levofloxacin (Levaquin) Allergy (Unknown, Verified 09/12/24 13:38) unknown morphine Allergy (Unknown, Verified 09/12/24 13:38) Itching/Hives, swelling,rash buprenorphine (From Butrans) Adverse Reaction (Severe, Verified 09/12/24 13:38) severe itching Seasonal / Environmental Allergy (Unknown, Uncoded 10/17/23 13:30) Unknown Medication List - Last Reconciled 05/29/25 by Jalen Steele MD albuterol sulfate 90 mcg/actuation (ProAir HFA) 1 inh inhalation QID PRN 30 days alprazolam 0.5 mg (2 x 0.25 mg) PO DAILY PRN 1 day apixaban (Eliquis) 5 mg PO BID cholecalciferol (vitamin D3) 50 mcg PO DAILY cyanocobalamin (vitamin B-12) 1,000 mcg PO Q OTHER DAY dicyclomine 20 mg PO BID PRN 90 days diltiazem HCl CD 360 mg PO DAILY diphenhydramine-acetaminophen 25-500 mg (Tylenol PM Extra Strength) 1 tab PO BEDTIME PRN loratadine (Allergy Relief (loratadine)) 10 mg PO DAILY PRN 90 days ytebfcqlyoon-jice-fmtkx acid 18-400 mg-mcg (Spectravite Advanced Formula) 1 tab PO DAILY 90 days venlafaxine ER 75 mg PO QPM venlafaxine ER 37.5 mg PO QAM HPI Comments Details: Millie returns for follow-up. In 2021, she was given a Holter monitor for evaluation of atrial fibrillation, but that showed frequent pauses as much as 8.9 seconds. Subsequently, underwent pacemaker placement. In 2023, she was found to be in atrial fibrillation consistently and that led to cardioversion. However, she was back in atrial fibrillation on follow-up visits with nonspecific symptoms like dizziness. Had tried amiodarone as well. Eventually saw electrophysiology and underwent atrial fibrillation ablation. Overall, she states she feels good. No new concerns. [facility] Medical History Lumbar spondylosis PTSD (post-traumatic stress disorder) Fibromyalgia Pain management Osteoarthritis Surgical History History of cholecystectomy History of cardiac pacemaker H/O colonoscopy History of bilateral breast reduction surgery History of hysterectomy History of gastric bypass History of left knee replacement Family History Father Colon cancer Mother Lung cancer Son No problems noted. Son No problems noted. Son No problems noted. Daughter No problems noted. Social History Household Members: None Housing: Apartment Do you presently have visiting nurse or other home services: No Alcohol intake: never Patient Tobacco Use Status: Never used Tobacco Tobacco use type: Cigarette Cigarette Packs Per Day: 0.75 Cigarettes Per Day: 3 Years Smoked: 50 +/- e-Cigarette/Vaping Use: Never Used Second Hand Smoke Exposure: Yes service: No Current occupational status: retired Cognitive needs: No Hearing needs: No Vision needs: Yes Review of Systems Const All systems reviewed & are unremarkable except as noted in HPI and below Reports as per HPI and Reports no additional complaints Eyes Reports as per HPI and Denies no additional complaints ENT Denies no additional complaints and Reports as per HPI Card Reports as per HPI, Reports no additional complaints, Denies acrocyanosis, Denies chest pain, Denies leg edema, Denies lightheadedness, Denies palpitations and Denies dyspnea Resp Reports as per HPI, Denies no additional complaints and Denies dyspnea GI Reports as per HPI and Denies no additional complaints Reports as per HPI Musc Reports no additional complaints and Reports as per HPI Skin/Breast Reports system reviewed and no additional complaints, except as documented Neuro Reports no additional complaints and Reports as per HPI Psych Reports no additional complaints and Reports as per HPI Endo Reports no additional complaints, Reports as per HPI and Denies palpitations Vicente/Lymph Reports no additional complaints and Reports as per HPI Aller/Immun Reports no additional complaints and Reports as per HPI Physical Exam Vital Signs: Last Vital Signs Pulse 60 05/29/25 13:41 BP 150/62 H 05/29/25 13:41 BMI result Body Mass Index 22.2 Const General: comfortable and no acute distress Orientation/consciousness: patient oriented x3 HEENT Other: Unremarkable Head: Yes normal to inspection Neck Neck: Yes normal visual inspection Chest Chest palpation & inspection: normal inspection of the chest Resp Auscultation: clear to auscultation bilaterally Cardio Palpation: normal PMI Heart sounds: S1 normal heart sound present, S2 normal heart sound present, no gallops, no murmurs and no rubs GI Palpation (GI): Soft to palpation Back/Spine/Pelvis Other: unremarkable Skin General skin exam: no rashes or lesions noted Neuro General: patient oriented x3 Extrem General: Yes normal to inspection Psych Mental Status: mental status grossly normal Assessment & Plan Assessment & Plan (1) PAF (paroxysmal atrial fibrillation): Code(s): I48.0 - Paroxysmal atrial fibrillation Category: Medical Plan: Cardioversion December 2023. Ablation January 2025. Continue diltiazem. Previously intolerant of beta-blockers. Has been on amiodarone as well as digoxin at different times in the past. Remains on anticoagulation with Eliquis. We will follow-up on the pacemaker for any atrial fibrillation recurrence. Cardiac testing- Echocardiogram 2023-LVEF 63%. Left atrium severely dilated. Aortic valve calcification with early stenosis. Myocardial perfusion imaging 2021 without any clear ischemic findings. (2) Sick sinus syndrome: Code(s): I49.5 - Sick sinus syndrome Category: Medical Plan: Status post pacemaker. We will follow remotely. (3) Hypertension, essential: Code(s): I10 - Essential (primary) hypertension Category: Medical Plan: Slightly high today. Advised her to do home readings and contact us as needed. However, she thinks it is all from anxiety coming here. Plan Discussion Notes During the visit, we discussed the importance of continuing current medications for atrial fibrillation and the need for regular monitoring of the pacemaker. We also talked about the necessity of home blood pressure monitoring to distinguish between anxiety-induced and true hypertension. The patient was informed about managing anxiety and the potential need for further evaluation if symptoms persist. Patient was informed and verbally consented to the use of an ambient scribe for clinic note documentation during this visit. Patient Instructions: - Continue taking Eliquis and diltiazem as prescribed. - Monitor blood pressure at home regularly. - Follow up with your doctor to review blood pressure readings and adjust treatment if necessary. - Manage anxiety through lifestyle changes or seek further evaluation if needed. Coding Level of Care Code Est Pt Level 4 (43120) Complex EM visit Add On G2211 Diagnoses PAF (paroxysmal atrial fibrillation) I48.0 Sick sinus syndrome I49.5 Hypertension, essential I10
[2025-05-29 13:41] VITALS: BP 150/62; PULSE 60; BMI 22.2
--- OUTSIDE RECORDS SUMMARY | 2025-05-29 16:55 | XMS_ITS | Clinical Summary ---
Author Organization [employer] Address [address] [place] [address] [address] [place] [address] Care Team Providers Care Snipper Name Role Phone Unavailable Primary Care Provider [...] Date Last Done Comments Depression Screening 1945 SDOH Screening 1945 Alcohol/Substance Use Screening 1958 Hepatitis C Screening 1964 Zoster Vaccines (2 of 3) 11/16/2013 09/21/2013 Pneumococcal Vaccine: 50+ Years (2 of 2 - PPSV23) 05/27/2017 04/01/2017 RSV Patients and Patients Aged 60 years or older (1 - 1-dose 75+ series) 2021 Dental Oral Exam 11/01/2023 05/02/2023 Dental Prophylaxis 11/05/2023 05/06/2023 Dental X-Ray: Bitewings 05/03/2024 05/02/2023 Tobacco Screening 01/05/2025 01/06/2024 COVID-19 Vaccine (1 - 2023-2 5 season) 2025 Influenza Vaccine (#1) 2025 9, 04/10/2017, 08/17/2016 Dental X-Ray: Full Mouth 05/03/2026 05/02/2023 DTaP/Tdap/Td [...] patient's age to complete this topic Meningococcal B Vaccine Aged Out No l onger eligible based on patient's age to complete [...] ADULT Routine 05/06/2023 1 :00 PM EDT INTRAORAL - COMPLETE SERIES OF RADIOGRAPHIC IMAGES Routine 05/02/2023 1:00 PM EDT COMPREHENSIVE ORAL EVALUATION - NEW OR ESTABLISHED PATIENT Routine 05/02/2023 1:00 PM EDT from Last 3 Months or Most Recently Relevant to Health Maintenance Insurance
--- OUTSIDE RECORDS SUMMARY | 2025-05-29 16:55 | XMS_ITS | Patient Health Record ---
Author Organization [facility] Address [address] [place] [phone] Care Team Providers Care Pcu Rn Name Role Phone Servando ANDREW, Asma Primary Care Provider Wilver Tolentino [phone] Reason For Referral No Information Plan Of Treatment No Information Insurance Providers Payer Name Payer Address Payer Phone Subscriber Number Group Number Insured Name Patient Relationship to Insured Coverage Start Date Coverage End Date [facility] [address] [address] [place] [address] [id number] ALICIA PARRY Self - patient is the insured
== END 2025-05-29 14:03 | disposition home or self-care (01) ==
LOC: HO.HCS 13:14
PROVIDERS: PCP Internal Medicine; Visit Provider Internal Medicine
DX: I48.0 Paroxysmal atrial fibrillation (principal); I49.5 Sick sinus syndrome; I10 Essential (primary) hypertension
CPT/HCPCS: 99214; G2211

== ENCOUNTER → 2025-05-29 13:14 | Outpatient (BNVA) | payer OTHER, SELFPAY | PROVIDERS: PCP Internal Medicine; Visit Provider Internal Medicine | DX: I48.0 Paroxysmal atrial fibrillation (principal); I10 Essential (primary) hypertension; I49.5 Sick sinus syndrome; F41.9 Anxiety disorder, unspecified | CPT/HCPCS: 99212 ==